=== PATIENT | male | born 1970 | race Two or more races ===

== ENCOUNTER 2020-12-02 09:24 | Outpatient (CLI) | payer BC, SELFPAY ==
--- NOTE | ~2020-12-02 | XR_ITS ---
XR knee LT min 4V DATE: 12/02/2020 09:33 INDICATION: Left knee pain. No injury. TECHNIQUE: Standing AP, Melton and lateral views. Torrey view. COMPARISON: 09/26/2016 left knee FINDINGS: No fracture or dislocation or joint effusion. No periosteal reaction or bone destruction. J oint spaces are well preserved. No radiopaque intra-articular loose body or chondrocalcinosis. IMPRESSION: Negative Reviewed, dictated and finalized at location A. D OPERATIONS SUPERVISOR IMPRESSION: Negative
== END 2020-12-02 09:25 | disposition home or self-care (01) ==
LOC: ANHIMG 09:25
PROVIDERS: PCP Family Medicine; Visit Provider Physician Assistant
DX: M25.562 Pain in left knee (principal)
CPT/HCPCS: 73564

== ENCOUNTER 2021-07-13 15:06 | Outpatient (CLI) | payer BC, SELFPAY ==
--- NOTE | ~2021-07-13 | XR_ITS ---
XR chest 2V DATE: 07/13/2021 15:22 INDICATION: Dyspnea on exertion TECHNIQUE: PA and lateral views COMPARISON: None FINDINGS: There is moderately prominent elevation left hemidiaphragm and left basilar atelectasis and possible infiltrate. The lungs are otherwise clear. No pleural effusion or pulmonary vascular congestion or pneumothorax. Heart size appears borderline. Status post anterior cervical spine surgical fusion. IMPRESSION: Elevated left diaphragm and left basilar atelectasis, possible infiltrate Reviewed, dictated and finalized at location A. IMPRESSION: Elevated left diaphragm and left basilar atelectasis, possible infi ltrate
== END 2021-07-13 15:07 | disposition home or self-care (01) ==
LOC: ANHIMG 15:12
PROVIDERS: PCP Family Medicine; Visit Provider Family Medicine
DX: R06.00 Dyspnea, unspecified (principal); R91.8 Other nonspecific abnormal finding of lung field
CPT/HCPCS: 71046

== ENCOUNTER 2021-09-13 18:03 | Outpatient (CLI) | payer BC, SELFPAY ==
--- NOTE | ~2021-09-13 | CT_ITS ---
EXAMINATION: CT brain wo con DATE: 09/13/2021 18:38 INDICATION: Possible concussion with one and one half weeks of headache TECHNIQUE: Computed tomography (CT) of the head was performed without intravenous contrast. Sagittal and coronal reconstructions were performed. The mA was adjusted according to patient size. Iterative reconstruction technique was employed. The dose-length product was 605.33 mGy-cm. COMPARISON: None FINDINGS: No fracture. No acute intracranial hemorrhage, acute infarction or abnormal extra axial fluid collect ion. There is mild scattered frontal lobe predominant white matter hypoattenuation. Ventricles are n ormal and symmetric. No mass/mass effect. The orbits, paranasal sinuses and mastoid air cells are nor mal. IMPRESSION: 1. No acute/subacute intracranial process. 2. Mild frontal lobe predominant white matter hypoattenuation which is prominent for age. The differe ntial diagnosis includes premature chronic small vessel ischemic disease (especially if the patient h as cardiovascular risk factors), demyelinating disease such as multiple sclerosis or acute disseminat ed encephalomyelitis (ADEM), CADASIL (especially if age 20-40 with prominent anterior temporal lobe o r external capsule involvement), drug abuse (especially with cerebellar involvement), vasculitis, or reactive astrocytosis (gliosis) secondary to nonspecific etiology. Reviewed, dictated and finalized at location A. HEN OPERATOR IMPRESSION: 1. No acute/subacute intracranial process. 2. Mild frontal lobe predominant white matter hypoattenuation which is prominen t for age. The differential diagnosis includes premature chronic small vessel i schemic disease (especially if the patient has cardiovascular risk factors), de myelinating disease such as multiple sclerosis or acute disseminated encephalom yelitis (ADEM), CADASIL (especially if age 20-40 with prominent anterior tempor al lobe or external capsule involvement), drug abuse (especially with cerebella r involvement), vasculitis, or reactive astrocytosis (gliosis) secondary to non specific etiology.
== END 2021-09-13 18:04 | disposition home or self-care (01) ==
PROVIDERS: PCP Family Medicine; Visit Provider Nurse Practitioner Family
DX: S00.93XA Contusion of unspecified part of head, initial encounter (principal); S06.0X9A Concussion with loss of consciousness of unspecified duration, initial encounter; H53.8 Other visual disturbances; R51.9 Headache, unspecified; X58.XXXA Exposure to other specified factors, initial encounter
CPT/HCPCS: 70450

== ENCOUNTER 2022-03-21 13:30 | Outpatient (RCR) | payer BC, SELFPAY ==
--- NOTE | 2022-02-24 11:17 | OTOPEVAL ---
OCCUPATIONAL THERAPY INITIAL EVALUATION REPORT AND PLAN OF CARE 02/24/22 Thank you for referring Sunny Huerta to [facility].? The patient is scheduled to be seen for therapy? 2x/week for 4 weeks. Please review, sign, date and return this plan of care FIDE. I agree with and certify that the following plan of care is medically necessary. Referring Physician Date Referring Provider: Susanne Norwood MD *OT Outpatient Evaluation Start: 02/24/22 10:02 Outpatient Past Medical History Past Medical History Source of Past Medical History Patient Neurological History Hx Neurological Disorders No Significant History Musculoskeletal History Hx Spinal Surgery Yes: cervical fusion, lumbar and sacral fusion Evaluation Information Diagnosis right elbow lateral epicondylitis Onset about a year ago Subjective Information Patient reports pain and Query Text:As Reported By Patient/ difficulties with work tasks - Family typing and using a mouse, lifting or gripping with the right hand, etc. He has been heavily favoring the left and for ADL and household tasks. 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 Right Activity of Daily Living Ability Independent Pain Assessment Timing of Pain Assessment Timing of Pain Assessment Assessment Pain Scale Pain Scale Used Numeric (1 - 10) Self Report Pain Assessment Right Lateral Elbow(s) Reported Pain Level 4 Pain Description Throbbing Lowest Pain Intensity 4 Greatest Pain Intensity 7 Other Pain Aggravating Factors repetitive motion Pain Score Pain Score 4: Self Report Interventions Used Interventions Used By Clinicians Education Upper Extremity Range of Motion General Upper Extremity Range of Motion Reason Not Measured WNL/Right Hand Respiratory Care Specialist/Pinch Strength Assessment Hand Left Respiratory Care Specialist Strength (lbs) 75 Right Respiratory Care Specialist Strength (lbs) 15 Palpation Assessment Palpation Palpation (+) pain and tenderness at the lateral epicondyle, wrist/ finger extensor tendons, and especially at the supracondylar ridge at the ECRL/ECRB origin Special Tests-Upper Extremity Elbow Special Tests Cozen's Positive Right Maudsley's Test Negative Right Elbow Special Test Comments More pain with resisted ECRL/ ECRB vs ED. Upper Extremity Exercise Wrist Exercise Right Other Wrist Exercises Active wrist s
--- NOTE | 2022-03-21 15:17 | PCOTNOTE ---
Patient called & cancelled scheduled appointment this date due.
--- NOTE | 2022-04-04 08:32 | PCOTNOTE ---
OCCUPATIONAL THERAPY DISCHARGE NOTIFICATION 04/04/22 Patient:Sunny Huerta Date of :1970 Patient has not returned for any further treatments since 03/16/2022, therefore he will be discharged at this time. He no showed on his last therapy visit and our clinic has been unable to get in contact with him to reschedule. Patient?s initial visit was on 02/24/2022 10:00 and he had a total of7 visits. The goals have been partially met. He was independent with his home program for lateral epicondylitis and was making progress. Thank you for referring this patient to [facility]. Please review, sign, date and return this discharge summary FIDE. I have been updated about the patient's current status and I agree with discharge from the above service at this time. Referring Physician Date Referring Provider: Susanne Norwood MD
== END 2022-04-04 14:41 | disposition home or self-care (01) ==
LOC: ANHOT 13:30
PROVIDERS: PCP Family Medicine
DX: M79.18 Myalgia, other site (principal)
CPT/HCPCS: 97035; 97110; 97113; 97140; 97165

== ENCOUNTER 2022-06-12 08:05 | Outpatient (CLI) | payer BC, SELFPAY ==
--- NOTE | ~2022-06-12 | XR_ITS ---
XR chest 2V 06/12/2022 08:26 Indication: Cough and shortness of breath Procedure: 2 view chest Comparison: 07/13/2021 Findings: Chronically elevated left diaphragm, suspicious for phrenic nerve paralysis. There is uncha nged left basilar atelectasis. Stable cardiomediastinal silhouette. Right lung clear. No significant effusion or pneumothorax. Impression: 1: Chronic elevation of the left diaphragm, suspicious for phrenic nerve paralysis. Unchanged left ba silar atelectasis. Reviewed, dictated and finalized at location B. Impression: 1: Chronic elevation of the left diaphragm, suspicious for phrenic nerve paraly sis. Unchanged left basilar atelectasis.
== END 2022-06-12 08:06 | disposition home or self-care (01) ==
PROVIDERS: PCP Family Medicine; Visit Provider Nurse Practitioner Family
DX: R05.9 Cough, unspecified (principal); R91.8 Other nonspecific abnormal finding of lung field
CPT/HCPCS: 71046

== ENCOUNTER 2022-09-15 10:46 | Outpatient (CLI) | payer BC, SELFPAY ==
--- NOTE | ~2022-09-15 | XR_ITS ---
XR chest 2V 09/15/2022 11:02 Indication: Diaphragm disorder. Previous lung surgery. Procedure: 2 view chest Comparison: Comparison to multiple prior studies sequentially, with oldest reviewed study dated 07/13. Findings: There is bibasilar atelectasis. Borderline heart size. No focal pneumonia, edema or effusio n. There is elevation of the left diaphragm. No pneumothorax. Impression: 1: Bibasilar atelectasis with elevated left diaphragm. Reviewed, dictated and finalized at location A. HEAD BUILDER Impression: 1: Bibasilar atelectasis with elevated left diaphragm.
== END 2022-09-15 10:47 | disposition home or self-care (01) ==
PROVIDERS: PCP Family Medicine; Visit Provider Family Medicine
DX: J98.6 Disorders of diaphragm (principal)
CPT/HCPCS: 71046

== ENCOUNTER 2022-11-23 10:04 | Outpatient (CLI) | payer OTHER, SELFPAY ==
--- NOTE | ~2022-11-23 | XR_ITS ---
EXAMINATION: XR chest 2V DATE: 11/23/2022 10:27 INDICATION: Right chest pain. TECHNIQUE: Frontal and lateral views of the chest were obtained. COMPARISON: Chest 2 views 09/15/2022, CT abdomen and pelvis 09/25/17 FINDINGS: There is mild atelectasis in left lower lung zone. No pleural effusion or pneumothorax. The heart size is normal. There are prominent paracardial fat pads. There are changes of anterior fusion procedure in cervical spine. IMPRESSION: 1. Mild atelectasis in left lower lung zone. Reviewed, dictated and finalized at location A. O ANNOUNCER
== END 2022-11-23 10:05 | disposition home or self-care (01) ==
PROVIDERS: PCP Family Medicine; Visit Provider Physician Assistant
DX: J98.11 Atelectasis (principal); R06.02 Shortness of breath; R07.89 Other chest pain
CPT/HCPCS: 71046

== ENCOUNTER 2022-12-14 14:07 | Outpatient (CLI) | payer OTHER, SELFPAY ==
--- NOTE | ~2022-12-14 | XR_ITS ---
XR hip RT 2V w AP pelvis 12/14/2022 14:42 Indication: Right hip pain for 2 months Procedure: AP pelvis and 2 views right hip Comparison: 12/03/2018 Findings: There is mild osteoarthritis of the right hip. There are postsurgical fusion changes at L5- S1. Pelvic rings are intact. No fracture or traumatic malalignment. Impression: 1: Mild osteoarthritis of the right hip. Reviewed, dictated and finalized at location A. T REGISTRY OFFICER Impression: 1: Mild osteoarthritis of the right hip.
== END 2022-12-14 14:08 | disposition home or self-care (01) ==
PROVIDERS: PCP Family Medicine; Visit Provider Family Medicine
DX: M16.11 Unilateral primary osteoarthritis, right hip (principal)
CPT/HCPCS: 73502

== ENCOUNTER 2022-12-26 16:06 | Emergency (ER) | payer OTHER, SELFPAY ==
[2022-12-26 16:16] VITALS: BP 136/97; PULSE 84; RESP 20; TEMP 36.4; O2SAT 100
--- NOTE | 2022-12-26 16:33 | ED.URI ---
HPI - URI/Sore Throat General Chief Complaint: Upper Respiratory Infection Stated Complaint: sorethroat Time Seen by Provider: 12/26/22 16:34 Source: patient, RN notes reviewed and old records reviewed Mode of arrival: ambulatory Limitations: no limitations History of Present Illness HPI Narrative: 52 year old male presents to [facility] care with complaints of 3 day history of scratchy painful throat. Patient states he has also some nasal congestion, some body aches, and occasional cough. Patient reports that he takes daily Xyzal and has been taking Ibuprofen, NyQuil and also using Chloraseptic spray for his symptoms. Patient reports that he has been around brother's family who have had strep. MD elicited complaint: cough, sore throat, rhinorrhea and nasal congestion Onset (ago): day(s) (3) Consistency: constant Pain scale (0-10): 6 Able to tolerate fluids by mouth: Yes Context: sick contacts Treatments prior to arrival: ibuprofen and other (Chloraseptic spray, NyQuil, Xyzal) Related Data Home Medications Medication Instructions Recorded Confirmed clonazepam 0.5 mg tablet 0.5 mg PO BID 11/17/19 12/26/22 paroxetine HCl 40 mg tablet 40 mg PO DAILY 11/17/19 12/26/22 mecobalamin (vitamin B12) 1,000 1,000 mcg PO DAILY 02/23/21 12/26/22 mcg chewable tablet Allergies Allergy/AdvReac Type Severity Reaction Status Date / Time methocarbamol Allergy Mild unknown Verified 12/26/22 16:13 atorvastatin Allergy Unknown Unknown Verified 12/26/22 16:13 buspirone Allergy Unknown Unknown Verified 12/26/22 16:13 cholecalciferol (vitamin D3) Allergy Unknown Unknown Verified 12/26/22 16:13 ferumoxytol Allergy Unknown Anaphylactic Verified 12/26/22 16:13 Shock Czgctpf-BXU-BdL Reductase Allergy Unknown Unknown Verified 12/26/22 16:13 Inhibitor [Axailka-Din-Kdf Reductase Inhibitor] sulfamethizole Allergy Unknown Unknown Verified 12/26/22 16:13 sulfamethoxazole Allergy Unknown Swelling Verified 12/26/22 16:13 tramadol Allergy Unknown Dyspnea / Verified 12/26/22 16:13 SOB trimethoprim Allergy Unknown Unknown Verified 12/26/22 16:13 Review of Systems Review of Systems: CONSTITUTIONAL: Denies malaise, chills, sweats, or fever. EYES: Denies visual changes, redness, or discharge. ENT: Reports rhinorrhea, congestion, sinus pain, no otalgia positive sore throat. CARDIOVASCULAR: Denies chest pain, palpitations, or edema. RESPIRATORY: Reports occasional cough.? Denies dyspnea. GASTROINTESTINAL: Denies abdominal pain, nausea, vomiting, diarrhea SKIN: Denies rash or itching. MUSCULOSKELETAL:reports myalgia. NEUROLOGIC: Denies headache. All systems reviewed & are unremarkable except as noted in HPI and below PMFSH Past Medical History Medical History Acquired elevated hemidiaphragm Arthritis Claustrophobia Degenerative tear of glenoid labrum of right shoulder Internal impingement of right shoulder Obesity Tendinitis of right rotator cuff Surgical History Surgical History History of cervical discectomy C5-6,C6-7,C7-T1 Fusion approximately 07/2020. History of lumbar spinal fusion S/P arthroscopy of right shoulder Family History Family History Father Hypertension Mother Hypertension Sibling Hypertension Other Arthritis Diabetes mellitus High cholesterol Neuropathy Social History Social History Smoking status: Never smoker Second hand tobacco smoke exposure: No Alcohol intake: current Alcohol use details: occasionally Substance use: never Substance use type: does not use Living arrangements: with family Occupation/Education: occupation Gender identity (if verbalized by the patient): Male Sexual Orientation (if Verbalized by the Patient): Lesbian, Garcia, or
== END 2022-12-26 16:48 | disposition home or self-care (01) ==
PROVIDERS: Emergency Provider Registered Nurse; PCP Family Medicine
DX: J03.90 Acute tonsillitis, unspecified (principal)
CPT/HCPCS: 87081; 87880; 99213; G0463

== ENCOUNTER 2023-01-03 16:37 | Outpatient (CLI) | payer OTHER, SELFPAY ==
--- NOTE | ~2023-01-03 | XR_ITS ---
EXAMINATION: XR chest 2V DATE: 01/03/2023 16:55 INDICATION: Cough and shortness of breath. TECHNIQUE: Frontal and lateral views of the chest were obtained. COMPARISON: Chest 2 views 11/23/2022, 06/12/2022 FINDINGS: There is mild atelectasis at left lung base. There is elevation of left hemidiaphragm. No p leural effusion or pneumothorax. The heart size is normal. There are prominent paracardial fat pads. There are changes of anterior fusion procedure in cervical spine. IMPRESSION: 1. Mild atelectasis at left lung base. 2. Chronic elevation of left hemidiaphragm. Reviewed, dictated and finalized at location A. NDED INSURANCE CLERK
== END 2023-01-03 16:38 | disposition home or self-care (01) ==
LOC: ANHIMG 16:38
PROVIDERS: PCP Family Medicine; Visit Provider Family Medicine
DX: R05.9 Cough, unspecified (principal); J98.11 Atelectasis
CPT/HCPCS: 71046

== ENCOUNTER 2023-04-19 08:53 | Outpatient (CLI) | payer OTHER, SELFPAY ==
--- NOTE | ~2023-04-19 | XR_ITS ---
Clinical Indication: Cough PA and lateral views of the chest: Comparison: 01/03/2023 Findings: There is retrocardiac airspace disease. Right lung is clear. Cardiomediastinal silhouette is within normal limits. Bones and soft tissues are unremarkable. Impression: Left lower lobe atelectasis versus pneumonia, similar to prior exam. Reviewed, dictated and finalized at location . Impression: Left lower lobe atelectasis versus pneumonia, similar to prior exam.
== END 2023-04-19 08:54 | disposition home or self-care (01) ==
PROVIDERS: PCP Family Medicine; Visit Provider Family Medicine
DX: R05.9 Cough, unspecified (principal); R06.02 Shortness of breath; R06.2 Wheezing; R91.8 Other nonspecific abnormal finding of lung field
CPT/HCPCS: 71046

== ENCOUNTER 2023-07-13 14:36 | Outpatient (CLI) | payer OTHER, SELFPAY ==
--- NOTE | ~2023-07-13 | XR_ITS ---
EXAMINATION: XR ribs RT 2V w CXR 2V INDICATION: Chest pain TECHNIQUE: PA and lateral views of the chest and 3 views of the right ribs were obtained. COMPARISON: 04/19/2023 FINDINGS: There is chronic atelectasis or scarring of the left lower lobe. No pleural effusion or pne umothorax. The lungs are free of acute opacities. The heart size is normal. There is mild thoracic sp ondylosis. Surgical changes are noted in the lower cervical spine. IMPRESSION: 1. No acute cardiopulmonary abnormality or evidence of displaced rib fracture. Reviewed, dictated and finalized at location F.
== END 2023-07-13 14:37 | disposition home or self-care (01) ==
PROVIDERS: PCP Family Medicine; Visit Provider Physician Assistant
DX: R06.02 Shortness of breath (principal); R07.9 Chest pain, unspecified
CPT/HCPCS: 71046; 71100

== ENCOUNTER 2023-08-21 11:13 | Emergency (ER) | payer OTHER, SELFPAY ==
--- NOTE | ~2023-08-21 | XR_ITS ---
XR abdomen/kub 1V 08/21/2023 11:43 INDICATION: Lower abdominal pain TECHNIQUE: KUB COMPARISON: 06/20/2018 FINDINGS: Bowel gas pattern is normal. There is no evidence of free air, mass, organomegaly, ascites or obstruction. No abnormal calculi are seen. The bones appear intact. There are fusion changes at L5-S1. IMPRESSION: 1: No acute abdominal abnormality identified. Reviewed, dictated and finalized at location L.
--- NOTE | 2023-08-21 11:16 | ED.ABDPAIN ---
HPI - Abdominal Pain General Chief Complaint: Abdominal Pain Stated Complaint: lower abdominal pain Time Seen by Provider: 08/21/23 11:16 Source: patient Mode of arrival: ambulatory Limitations: no limitations History of Present Illness HPI narrative: Sunny is a 53-year-old male patient presenting to the clinic today with complaints of left lower abdominal pain. Reports his pain is been going on for last 3 days. Currently rates his pain a 5/10 and states it is a sharp pain in the left lower abdomen. Pain initially started under the umbilicus and went to the right side but now is to the left side only. No known fever. Did get a COVID vaccine yesterday so he is having some body aches and chills today. Reports history of chronic constipation. Had taken stool softener, MiraLax and milk of Mag this morning and had a very hard bowel movement. Does notice some bright red blood when wiping on the tissue paper however, this is not uncommon for the patient. He is passing gas but feels slightly distended. No nausea or vomiting. Reports urinary frequency and pain with urination. He denies any penile discharge. He has no concern for any sexually transmitted infections. Related Data Home Medications Medication Instructions Recorded Confirmed clonazepam 0.5 mg tablet 0.5 mg PO BID 11/17/19 08/21/23 paroxetine HCl 40 mg tablet 40 mg PO DAILY 11/17/19 08/21/23 mecobalamin (vitamin B12) 1,000 1,000 mcg PO DAILY 02/23/21 08/21/23 mcg chewable tablet hydroxyzine HCl 50 mg tablet 50 mg PO DAILY 08/21/23 08/21/23 Allergies Allergy/AdvReac Type Severity Reaction Status Date / Time atorvastatin Allergy Severe Anaphylaxis Verified 08/21/23 11:38 buspirone Allergy Severe Anaphylaxis Verified 08/21/23 11:38 cholecalciferol (vitamin D3) Allergy Severe Anaphylaxis Verified 08/21/23 11:38 ferumoxytol Allergy Severe Anaphylaxis Verified 08/21/23 11:38 methocarbamol Allergy Severe Anaphylaxis Verified 08/21/23 11:38 Btvmpaf-JRJ-HcO Reductase Allergy Severe Anaphylaxis Verified 08/21/23 11:38 Inhibitor [Inbzlju-Lvt-Eyb Reductase Inhibitor] sulfamethizole Allergy Severe Anaphylaxis Verified 08/21/23 11:38 sulfamethoxazole Allergy Severe Anaphylaxis Verified 10/24/23 11:38 tramadol Allergy Severe Anaphylaxis Verified 08/21/23 11:38 trimethoprim Allergy Severe Anaphylaxis Verified 08/21/23 11:38 Review of Systems Review of Systems: Pertinent positives per HPI. Patient denies any fever, chills, rash, headache, visual changes, dizziness, cough, shortness of breath, chest pain, palpitations, nausea, vomiting, diarrhea. PMFSH Past Medical History Medical History Acquired elevated hemidiaphragm Arthritis Chronic cough Claustrophobia Degenerative tear of glenoid labrum of right shoulder Internal impingement of right shoulder Obesity Tendinitis of right rotator cuff Surgical History Surgical History History of cervical discectomy C5-6,C6-7,C7-T1 Fusion approximately 07/2020. History of lumbar spinal fusion S/P arthroscopy of right shoulder Family History Family History Father Hypertension Mother Hypertension Sibling Hypertension Other Arthritis Diabetes mellitus High cholesterol Neuropathy Social History Social History Smoking status: Never smoker Second hand tobacco smoke exposure: No Alcohol intake: current Alcohol use details: occasionally Substance use: never Substance use type: does not use Living arrangements: with family Occupation/Education: occupation Gender identity (if verbalized by the patient): Male Sexual Orientation (if Verbalized by the Patient): Lesbian, Garcia, or Homosexual Comments At the time of my signature, I reviewed and agree with the
[2023-08-21 11:24] VITALS: BP 134/91; PULSE 101; RESP 16; TEMP 36.3; O2SAT 99
== END 2023-08-21 12:05 | disposition short-term general hospital (02) ==
PROVIDERS: Emergency Provider Nurse Practitioner Family; PCP Family Medicine
DX: R10.32 Left lower quadrant pain (principal); M19.90 Unspecified osteoarthritis, unspecified site; E66.9 Obesity, unspecified; Z68.33 Body mass index [BMI] 33.0-33.9, adult
CPT/HCPCS: 74018; 81003; 99213; G0463

== ENCOUNTER 2023-09-03 12:08 | Emergency (ER) | payer OTHER, SELFPAY ==
[2023-09-03 12:19] VITALS: BP 131/101; PULSE 75; RESP 18; TEMP 36.3; O2SAT 99
--- NOTE | 2023-09-03 12:37 | ED.EXTPRO ---
HPI - Extremity Problem General Chief complaint: Extremity Problem,Nontraumatic Stated complaint: rt ankle pain Time Seen by Provider: 09/03/23 12:25 Source: patient and RN notes reviewed Mode of arrival: ambulatory Limitations: no limitations History of Present Illness HPI Narrative: Patient presents today complaining of right medial ankle pain x1 week. He describes the pain as sharp at times. Denies any injury or trauma, but states pain increased when he started to increases recreational walking up to 2 miles. Denies numbness or tingling. Currently rates his pain 4/10 and has been using ice and ibuprofen with mild short-term relief. Related Data Home Medications Medication Instructions Recorded Confirmed clonazepam 0.5 mg tablet 0.5 mg PO BID 11/17/19 09/03/23 paroxetine HCl 40 mg tablet 40 mg PO DAILY 11/17/19 09/03/23 mecobalamin (vitamin B12) 1,000 1,000 mcg PO DAILY 02/23/21 09/03/23 mcg chewable tablet hydroxyzine HCl 50 mg tablet 50 mg PO DAILY 08/21/23 09/03/23 Allergies Allergy/AdvReac Type Severity Reaction Status Date / Time atorvastatin Allergy Severe Anaphylaxis Verified 09/03/23 12:22 buspirone Allergy Severe Anaphylaxis Verified 09/03/23 12:22 cholecalciferol (vitamin D3) Allergy Severe Anaphylaxis Verified 09/03/23 12:22 ferumoxytol Allergy Severe Anaphylaxis Verified 09/03/23 12:22 methocarbamol Allergy Severe Anaphylaxis Verified 09/03/23 12:22 Ntnguwu-ZFZ-HzQ Reductase Allergy Severe Anaphylaxis Verified 09/03/23 12:22 Inhibitor [Vgojifi-Puj-Mlr Reductase Inhibitor] sulfamethizole Allergy Severe Anaphylaxis Verified 09/03/23 12:22 sulfamethoxazole Allergy Severe Anaphylaxis Verified 09/03/23 12:22 tramadol Allergy Severe Anaphylaxis Verified 09/03/23 12:22 trimethoprim Allergy Severe Anaphylaxis Verified 09/03/23 12:22 Review of Systems Review of Systems: CONSTITUTIONAL: Denies body aches, fever, chills, or sweats. EYES: Denies visual changes, redness, or discharge. ENT: Denies rhinorrhea, congestion, sore throat, or otalgia. CARDIOVASCULAR: Denies chest pain, palpitations, or edema. RESPIRATORY: Denies cough or dyspnea. GASTROINTESTINAL: Denies abdominal pain, nausea, vomiting, or diarrhea. GENITOURINARY: Denies dysuria or hematuria. SKIN: Denies rash, itching, or wounds. MUSCULOSKELETAL: + right ankle pain NEUROLOGIC: Denies headache, numbness, tingling, or weakness. PSYCH: Denies depression or anxiety. [facility] Past Medical History Medical History Acquired elevated hemidiaphragm Arthritis Chronic cough Claustrophobia Degenerative tear of glenoid labrum of right shoulder Internal impingement of right shoulder Obesity Tendinitis of right rotator cuff Surgical History Surgical History History of cervical discectomy C5-6,C6-7,C7-T1 Fusion approximately 07/2020. History of lumbar spinal fusion S/P arthroscopy of right shoulder Family History Family History Father Hypertension Mother Hypertension Sibling Hypertension Other Arthritis Diabetes mellitus High cholesterol Neuropathy Social History Social History Smoking status: Never smoker Second hand tobacco smoke exposure: No Alcohol intake: current Alcohol use details: occasionally Substance use: never Substance use type: does not use Living arrangements: with family Occupation/Education: occupation Gender identity (if verbalized by the patient): Male Sexual Orientation (if Verbalized by the Patient): Lesbian, Garcia, or Homosexual Comments At time of signature, I have reviewed and agree with nursing past medical, surgical, social and family history unless otherwise noted. Please see nursing chart for further information. There is no relevant
== END 2023-09-03 12:41 | disposition home or self-care (01) ==
PROVIDERS: Emergency Provider Nurse Practitioner; PCP Family Medicine
DX: S86.811A Strain of other muscle(s) and tendon(s) at lower leg level, right leg, initial encounter (principal); X58.XXXA Exposure to other specified factors, initial encounter; M19.90 Unspecified osteoarthritis, unspecified site; E66.9 Obesity, unspecified; Z68.35 Body mass index [BMI] 35.0-35.9, adult
CPT/HCPCS: 99213; G0463

== ENCOUNTER 2024-01-22 15:45 | Emergency (ER) | payer OTHER, SELFPAY ==
--- NOTE | ~2024-01-22 | XR_ITS ---
EXAMINATION: XR ankle RT min 3V INDICATION: Right ankle pain TECHNIQUE: Four views of the right ankle are obtained. COMPARISON: None available FINDINGS: No fracture, dislocation, or subluxation. The bones and joint spaces are normal. There is m edial soft tissue swelling of ankle. IMPRESSION: 1. No acute osseous abnormality. Reviewed, dictated and finalized at location F.
[2024-01-22 15:55] VITALS: BP 146/108; PULSE 87; RESP 16; TEMP 35.9; O2SAT 100
--- NOTE | 2024-01-22 16:04 | ED.LOWEXIN ---
HPI - Extremity Injury (Lower) General Chief Complaint: Extremity Injury, Lower Stated Complaint: rt ankle injury Time Seen by Provider: 01/22/24 16:24 Source: patient and RN notes reviewed Mode of arrival: ambulatory Limitations: no limitations History of Present Illness HPI Narrative: 54-year-old male presents with concern for right ankle injury. He reports 5 days ago he stepped off a bus and rolled the ankle. He reports he has been using ice, elevation and ibuprofen without much improvement. He denies open skin, bruising, redness. MD complaint: ankle injury Related Data Home Medications Medication Instructions Recorded Confirmed clonazepam 0.5 mg tablet 0.5 mg PO BID 11/17/19 01/22/24 paroxetine HCl 40 mg tablet 40 mg PO DAILY 11/17/19 01/22/24 mecobalamin (vitamin B12) 1,000 1,000 mcg PO DAILY 02/23/21 01/22/24 mcg chewable tablet hydroxyzine HCl 50 mg tablet 50 mg PO DAILY 08/21/23 01/22/24 loratadine 10 mg tablet 10 mg PO DAILY 01/22/24 01/22/24 Allergies Allergy/AdvReac Type Severity Reaction Status Date / Time atorvastatin Allergy Severe Anaphylaxis Verified 01/22/24 15:50 buspirone Allergy Severe Anaphylaxis Verified 01/22/24 15:50 cholecalciferol (vitamin D3) Allergy Severe Anaphylaxis Verified 01/22/24 15:50 ferumoxytol Allergy Severe Anaphylaxis Verified 01/22/24 15:50 methocarbamol Allergy Severe Anaphylaxis Verified 01/22/24 15:50 Runyboe-SUN-YjK Reductase Allergy Severe Anaphylaxis Verified 01/22/24 15:50 Inhibitor [Obdueoc-Ahx-Ftv Reductase Inhibitor] sulfamethizole Allergy Severe Anaphylaxis Verified 01/22/24 15:50 sulfamethoxazole Allergy Severe Anaphylaxis Verified 01/22/24 15:50 tramadol Allergy Severe Anaphylaxis Verified 01/22/24 15:50 trimethoprim Allergy Severe Anaphylaxis Verified 01/22/24 15:50 Review of Systems Review of Systems: CONSTITUTIONAL: Denies malaise, chills, sweats, or fever. SKIN: Denies rash or itching, open skin, laceration, abrasion, redness, warmth MUSCULOSKELETAL: Reports right ankle pain and swelling NEUROLOGIC: Denies numbness, weakness All systems reviewed & are unremarkable except as noted in HPI and below PMFSH Past Medical History Medical History (Updated 01/22/24 @ 16:30 by Iris Hill NP) Acquired elevated hemidiaphragm Arthritis Chronic cough CKD (chronic kidney disease), stage III Claustrophobia Degenerative tear of glenoid labrum of right shoulder Internal impingement of right shoulder Obesity Statin intolerance Tendinitis of right rotator cuff Surgical History Surgical History History of cervical discectomy C5-6,C6-7,C7-T1 Fusion approximately 07/2020. History of lumbar spinal fusion S/P arthroscopy of right shoulder Family History Family History Father Hypertension Mother Hypertension Sibling Hypertension Other Arthritis Diabetes mellitus High cholesterol Neuropathy Social History Social History Smoking status: Never smoker Second hand tobacco smoke exposure: No Alcohol intake: current Alcohol use details: occasionally Substance use: never Substance use type: does not use Living arrangements: with family Occupation/Education: occupation Gender identity (if verbalized by the patient): Male Sexual Orientation (if Verbalized by the Patient): Lesbian, Garcia, or Homosexual Comments At time of signature, agree with nursing past medical, surgical, social and family history. There is no relevant family history pertinent to the presenting complaint Exam Narrative: GENERAL: Well-appearing, well-nourished, and in no acute distress. HEAD: Normocephalic, atraumatic. EYES: PERRLA, conjunctivae clear NECK: Supple. CHEST: Speaks in full sentences. No respiratory distress. HEART: Regular rate and rhythm. Normal and equal p
== END 2024-01-22 16:31 | disposition home or self-care (01) ==
PROVIDERS: Emergency Provider Nurse Practitioner; PCP Family Medicine
DX: S93.401A Sprain of unspecified ligament of right ankle, initial encounter (principal); X50.9XXA Other and unspecified overexertion or strenuous movements or postures, initial encounter; M19.90 Unspecified osteoarthritis, unspecified site; E66.9 Obesity, unspecified; Z68.34 Body mass index [BMI] 34.0-34.9, adult; I12.9 Hypertensive chronic kidney disease with stage 1 through stage 4 chronic kidney disease, or unspecified chronic kidney disease; N18.2 Chronic kidney disease, stage 2 (mild); G62.9 Polyneuropathy, unspecified; E78.00 Pure hypercholesterolemia, unspecified; G47.30 Sleep apnea, unspecified; K21.9 Gastro-esophageal reflux disease without esophagitis; N40.0 Benign prostatic hyperplasia without lower urinary tract symptoms; F41.9 Anxiety disorder, unspecified; F32.A Depression, unspecified
CPT/HCPCS: 73610; 99213; G0463

== ENCOUNTER 2024-03-31 17:19 | Outpatient (CLI) | payer OTHER, SELFPAY ==
--- NOTE | ~2024-03-31 | XR_ITS ---
EXAMINATION: XR chest 2V Exam Date/Time: 03/31/2024 17:20 CDT HISTORY: R05.9 - Cough, unspecified Comparison: 07/13/2023. RESULT: Lines, tubes, and devices: Cervical fusion hardware. Surgical clips over the lower neck. Lungs and pleura: Chronic stable streaky left basilar opacities and left hemidiaphragm elevation, li teresa representing chronic scarring. Lungs otherwise clear. Cardiomediastinal silhouette: Stable. Other: No acute osseous or upper abdominal finding. IMPRESSION: No acute cardiopulmonary process. Reviewed, dictated and finalized at location K.
== END 2024-03-31 17:20 | disposition home or self-care (01) ==
LOC: ANHIMG 17:20
PROVIDERS: PCP Family Medicine; Visit Provider Physician Assistant
DX: R05.9 Cough, unspecified (principal)
CPT/HCPCS: 71046

== ENCOUNTER 2024-04-04 14:27 | Outpatient (CLI) | payer OTHER, SELFPAY ==
--- NOTE | ~2024-04-04 | CT_ITS ---
EXAMINATION: CT abdomen pelvis w con DATE: 04/04/2024 15:25 INDICATION: Left lower quadrant abdominal pain. TECHNIQUE: Computed tomography (CT) of the abdomen and pelvis was performed with 100 mL Omnipaque 350 intravenous contrast. Automated exposure control and iterative reconstruction technique were employe d. The dose-length product was 876.20 mGy-cm. COMPARISON: CT abdomen and pelvis 09/25/17 FINDINGS: The visualized portions of the lung bases demonstrate mild atelectasis. No pleural effusion . The heart size is normal. No pericardial effusion. There is mild elevation of left hemidiaphragm. T he liver, gallbladder, spleen, pancreas, adrenal glands, and right kidney are normal. There is a 6 mm cyst in left kidney. There are 3 mm and 1 mm stones in left kidney. The prostate is mildly enlarged. There are no dilated loops of bowel. The appendix is normal. There are no pathologically enlarged ly mph nodes. There is no free intraperitoneal fluid. There are changes of anterior and posterior fusion procedures at L5-S1. There is mild lumbar spondylosis. IMPRESSION: 1. No etiology for the patient's symptoms. Reviewed, dictated and finalized at location A.
[2024-04-04 15:15] LABS: Estimated Glomerular Filt Rate > 60
== END 2024-04-04 14:28 | disposition home or self-care (01) ==
LOC: ANHIMG 14:31
PROVIDERS: PCP Family Medicine; Visit Provider Physician Assistant Medical
DX: K52.89 Other specified noninfective gastroenteritis and colitis (principal)
CPT/HCPCS: 74177; Q9967

== ENCOUNTER 2024-04-15 12:48 | Outpatient (CLI) | payer OTHER, SELFPAY ==
--- NOTE | ~2024-04-15 | US_ITS ---
EXAMINATION: US soft tissue abdomen DATE: 04/15/2024 13:07 INDICATION: Left flank lipoma. TECHNIQUE: Multiple grayscale and Doppler ultrasound images of the abdomen were obtained. COMPARISON: CT abdomen and pelvis 04/04/24 FINDINGS: In the left flank, there is a 1.2 x 1.4 x 0.6 cm subcutaneous hyperechoic mass. IMPRESSION: 1. 1.4 cm subcutaneous mass in left flank, likely a lipoma or inflammation/scarring. Reviewed, dictated and finalized at location A. IMPRESSION: 1. 1.4 cm subcutaneous mass in left flank, likely a lipoma or inflammation/scar ring.
== END 2024-04-15 12:49 ==
PROVIDERS: PCP Family Medicine; Visit Provider Physician Assistant Medical
DX: R19.04 Left lower quadrant abdominal swelling, mass and lump (principal)
CPT/HCPCS: 76705

== ENCOUNTER 2024-06-25 14:14 | Outpatient (CLI) | payer OTHER, SELFPAY ==
--- NOTE | ~2024-06-25 | XR_ITS ---
EXAMINATION: XR chest 2V DATE: 06/25/2024 14:35 INDICATION: Chest pain, unspecified. TECHNIQUE: Frontal and lateral views of the chest were obtained. COMPARISON: Chest 2 views 03/31/2024 FINDINGS: There is mild atelectasis at left lung base. No pleural effusion or pneumothorax. The heart is normal. There are changes of anterior fusion procedure in cervical spine. IMPRESSION: 1. Mild atelectasis at left lung base. Reviewed, dictated and finalized at location A.
== END 2024-06-25 14:15 | disposition home or self-care (01) ==
PROVIDERS: PCP Family Medicine; Visit Provider Family Medicine
DX: J98.11 Atelectasis (principal); R07.9 Chest pain, unspecified
CPT/HCPCS: 71046

== ENCOUNTER 2024-08-04 12:45 | Emergency (ER) | payer OTHER, SELFPAY ==
[2024-08-04 12:55] VITALS: BP 138/96; PULSE 82; RESP 18; TEMP 36.4; O2SAT 100
--- NOTE | 2024-08-04 12:55 | ED.URI ---
HPI - URI/Sore Throat General Chief Complaint: Upper Respiratory Infection Stated Complaint: sore throat Time Seen by Provider: 08/04/24 12:55 Source: patient, RN notes reviewed and old records reviewed Mode of arrival: ambulatory Limitations: no limitations History of Present Illness HPI Narrative: 54-year-old male to [facility] with complaint of a irritation in his throat that he describes as a typical which started on July 29 while traveling home from [place]. Patient states that July 31 he developed a cough and sore throat. Patient has attempted to treat at home with qbwh-rud-xujlpse cough syrup and cough drops. Patient reports extensive anaphylactic allergies as well as a pulmonary history. Patient denies shortness of breath, difficulty swallowing , chest pain. Patient able to tolerate fluids by mouth. Patient resting in exam room in no acute distress. Respirations even and nonlabored. Patient able to speak in complete sentences without difficulty. Related Data Home Medications Medication Instructions Recorded Confirmed clonazepam 0.5 mg tablet 0.5 mg PO BID 11/17/19 08/04/24 paroxetine HCl 40 mg tablet 40 mg PO DAILY 11/17/19 08/04/24 loratadine 10 mg tablet 10 mg PO DAILY 01/22/24 08/04/24 Allergies Allergy/AdvReac Type Severity Reaction Status Date / Time atorvastatin Allergy Severe Anaphylaxis Verified 08/04/24 12:57 buspirone Allergy Severe Anaphylaxis Verified 08/04/24 12:57 cholecalciferol (vitamin D3) Allergy Severe Anaphylaxis Verified 08/04/24 12:57 ferumoxytol Allergy Severe Anaphylaxis Verified 08/04/24 12:57 methocarbamol Allergy Severe Anaphylaxis Verified 08/04/24 12:57 Lwdlhor-NUE-XiS Reductase Allergy Severe Anaphylaxis Verified 08/04/24 12:57 Inhibitor [Ucdzffq-Mzd-Zpe Reductase Inhibitor] sulfamethizole Allergy Severe Anaphylaxis Verified 08/04/24 12:57 sulfamethoxazole Allergy Severe Anaphylaxis Verified 08/04/24 12:57 tramadol Allergy Severe Anaphylaxis Verified 08/04/24 12:57 trimethoprim Allergy Severe Anaphylaxis Verified 08/04/24 12:57 Review of Systems Review of Systems: All systems reviewed & are unremarkable except as noted in HPI and below Constitutional: Constitutional: Reports no additional constitutional complaints Eyes: Eyes: Reports no additional eye complaints ENT: Reports as per HPI and Reports sore throat Cardiovascular: Cardiovascular: Reports no additional cardiovascular complaints, Denies chest pain and Denies dyspnea Respiratory: Respiratory: Reports as per HPI, Reports cough and Denies dyspnea Musculoskeletal: Musculoskeletal: Reports no additional musculoskeletal complaints Neurologic: Reports system reviewed and no additional complaints, except as documented Psychiatric: Psychiatric: Reports no additional psychiatric complaints [facility] Past Medical History Medical History Acquired elevated hemidiaphragm Arthritis Chronic cough CKD (chronic kidney disease), stage III Claustrophobia Degenerative tear of glenoid labrum of right shoulder Internal impingement of right shoulder Obesity Statin intolerance Tendinitis of right rotator cuff Surgical History Surgical History History of cervical discectomy C5-6,C6-7,C7-T1 Fusion approximately 07/2020. History of lumbar spinal fusion History of thoracic surgery diaphragm plication 07/2022 S/P arthroscopy of right shoulder Family History Family History Father Hypertension Mother Hypertension Sibling Hypertension Other Arthritis Diabetes mellitus High cholesterol Neuropathy Social History Social History Smoking status: Never smoker Second hand tobacco smoke exposure: No Alcohol intake: current Alcohol use details: occasionally
[2024-08-04 12:58] VITALS: BP 138/96; PULSE 82; RESP 18; TEMP 36.4; O2SAT 100
== END 2024-08-04 13:12 | disposition home or self-care (01) ==
PROVIDERS: Emergency Provider Nurse Practitioner Family; PCP Family Medicine
DX: H66.91 Otitis media, unspecified, right ear (principal); N18.30 Chronic kidney disease, stage 3 unspecified; M19.90 Unspecified osteoarthritis, unspecified site; E66.9 Obesity, unspecified; Z68.34 Body mass index [BMI] 34.0-34.9, adult
CPT/HCPCS: 99213; G0463

== ENCOUNTER 2024-08-11 13:55 | Outpatient (CLI) | payer OTHER, SELFPAY ==
--- NOTE | ~2024-08-11 | XR_ITS ---
XR chest 2V Ordering provider: Joy Samuel PA-C History: 54 years Male with . R05.9 - Cough, unspecified . Comparison: June 25, 2024 FINDINGS: MEDIASTINUM: The cardiac silhouette is not enlarged. LUNGS: No infiltrates, effusions or pneumothorax. Opacity seen in the right perihilar area which may be atelectasis versus pneumonia. Atelectatic y[place] es in the left lung base. OTHER: No free air under the diaphragm. IMPRESSION: Possible pneumonia in the right perihilar area. Clinical correlation advised. Reviewed, dictated and finalized at location A.
== END 2024-08-11 13:56 | disposition home or self-care (01) ==
LOC: ANHIMG 13:57
PROVIDERS: PCP Family Medicine; Visit Provider Physician Assistant
DX: R05.9 Cough, unspecified (principal); Z87.01 Personal history of pneumonia (recurrent)
CPT/HCPCS: 71046

== ENCOUNTER 2024-08-13 16:50 | Emergency (ER) | payer OTHER, SELFPAY ==
[2024-08-13] VITALS (8 sets, daily range): BP systolic 125–149; BP diastolic 91–110; PULSE 81–97; RESP 18–19; TEMP 36.5–36.9; O2SAT 97–100
--- NOTE | ~2024-08-13 | XR_ITS ---
XR chest 2V Ordering provider: Selwyn Kessler APRN History: 54 years Male with . cough . Comparison: August 11, 2024 FINDINGS: MEDIASTINUM: The cardiac silhouette is slightly enlarged. LUNGS: No infiltrates, effusions or pneumothorax. Minimal atelectatic changes in the supradiaphragmat ic area on the left side. Nodule seen in the right midzone which measures [address] evaluation advised. OTHER: No free air under the diaphragm. Postoperative changes in the cervical area. IMPRESSION: Nodule in the right midzone. CT evaluation advised. Left basilar atelectatic changes. Reviewed, dictated and finalized at location A.
--- NOTE | ~2024-08-13 | CT_ITS ---
CT diagnostic chest wo con Ordering provider: eSlwyn Kessler APRN History: 54 years Male with . per cxr results . Comparison: None. Technique: CT chest without IV contrast. Radiation reduction technique utilized.The dose-length product was 399.20 mGy-cm. FINDINGS: VISUALIZED THORACIC INLET: Normal. MEDIASTINUM: Aorta/coronary arteries: Mild atheromatous disease. Heart/other: The heart is not enlarged. Lymph nodes: No mediastinal or hilar adenopathy. Paratracheal lymph node seen measuring 8.5 mm. LUNGS: Subsegmental atelectatic changes seen in the right upper lobe adjacent to the transverse fissu re. Atelectatic changes in the left lung base with bronchiectasis is seen. Tree-in-bud changes are se en in the right lung is most likely postinfection changes or atelectasis. No pulmonary nodules or mas ses. No infiltrates or effusions. No pneumothorax. Left pleural calcification is seen adjacent to the diaphragm. VISUALIZED UPPER ABDOMEN: Stone in the left kidney all measuring 5 mm. Otherwise, the visualized uppe r abdomen is normal. MUSCULOSKELETAL: Soft tissues: The superficial soft tissues are normal. Bones: Normal spine. IMPRESSION: 1. Subsegmental atelectasis in the right upper lobe adjacent to the transverse fissure. No definite abnormality seen. Follow-up to resolution advised 2. atelectasis in the left lower lobe with bronchiectatic changes.. 3. Left kidney stone. Reviewed, dictated and finalized at location A.
--- NOTE | 2024-08-13 17:00 | ECG_ITS ---
Test Date: 2024-08-13 17:19:57 Measurements Intervals [place] Rate: 88 P: 31 NC: 171 QRS: 6 QRSD: 109 T: 55 QT: 383 QTc: 465 Interpretive Statements SINUS RHYTHM NONSPECIFIC ST AND T-WAVE ABNORMALITY No previous ECG available for comparison Electronically Signed On 08-14-2024 10:10:07 CDT by Marco Antonio Puente M.D.
--- NOTE | 2024-08-13 17:01 | ED.GENADULT ---
HPI - General Adult General Chief complaint: Upper Respiratory Infection <Selwyn Kessler APRN - Last Filed: 08/13/24 17:03> Stated complaint: cough <Selwyn Kessler APRN - Last Filed: 08/13/24 17:03> Time Seen by Provider: 08/13/24 17:53 <Selwyn Kessler APRN - Last Filed: 08/13/24 17:03> 54-year-old male presents with continuing cough and chest congestion. Patient states he has been sick for 3 weeks. Patient says he has seen his PCP multiple times. Patient states he was diagnosed with pneumonia on Sunday insert with azithromycin and cefdinir. Patient states he is getting worse General appearance: Well-developed, well-nourished Skin: Normal color Head: Normocephalic, nontraumatic Eyes: Clear conjunctiva ENT: Oropharynx normal, ears normal, nose normal Neck: Supple, nontender Chest and respiratory: decreased left lower lung base, no respiratory distress, no accessory muscle use Heart: Regular rate/rhythm Abdomen: Soft, nontender, no organomegaly, quiet bowel sounds Vascular: Normal peripheral pulses, normal capillary refill. Musculoskeletal: Normal range of motion, nontender back Neurologic: Alert and oriented ?3, [employer] is normal as tested, no gross motor deficit <Selwyn Kessler APRN - Last Filed: 08/13/24 17:03> History of Present Illness HPI narrative: I agree with the note and assessment by Selwyn Duong NP. <Bettina Tran APRN - Last Filed: 08/13/24 21:46> Related Data Home medications: Home Medications Medication Instructions Recorded Confirmed clonazepam 0.5 mg tablet 0.5 mg PO BID 11/17/19 08/11/24 paroxetine HCl 40 mg tablet 40 mg PO DAILY 11/17/19 08/11/24 loratadine 10 mg tablet 10 mg PO DAILY 01/22/24 08/11/24 <Selwyn Kessler APRN - Last Filed: 08/13/24 17:03> Allergies/adverse reactions: Allergies Allergy/AdvReac Type Severity Reaction Status Date / Time atorvastatin Allergy Severe Anaphylaxis Verified 08/13/24 17:42 buspirone Allergy Severe Anaphylaxis Verified 08/13/24 17:42 cholecalciferol (vitamin D3) Allergy Severe Anaphylaxis Verified 08/13/24 17:42 ferumoxytol Allergy Severe Anaphylaxis Verified 08/13/24 17:42 methocarbamol Allergy Severe Anaphylaxis Verified 08/13/24 17:42 Oapsnob-YME-ZyC Reductase Allergy Severe Anaphylaxis Verified 08/13/24 17:42 Inhibitor [Ilzxcpd-Inz-Xiz Reductase Inhibitor] sulfamethizole Allergy Severe Anaphylaxis Verified 08/13/24 17:42 sulfamethoxazole Allergy Severe Anaphylaxis Verified 08/13/24 17:42 tramadol Allergy Severe Anaphylaxis Verified 08/13/24 17:42 trimethoprim Allergy Severe Anaphylaxis Verified 08/13/24 17:42 <Selwyn Kessler APRN - Last Filed: 08/13/24 17:03> Review of Systems Review of Systems: All systems reviewed & are unremarkable except as noted in HPI and below <Bettina Tran APRN - Last Filed: 08/13/24 21:46> PMFSH Past Medical History Medical History: Medical History Acquired elevated hemidiaphragm Arthritis Chronic cough CKD (chronic kidney disease), stage III Claustrophobia Degenerative tear of glenoid labrum of right shoulder Internal impingement of right shoulder Obesity Statin intolerance Tendinitis of right rotator cuff <Selwyn Kessler APRN - Last Filed: 08/13/24 17:03> Surgical History Surgical History: Surgical History History of cervical discectomy C5-6,C6-7,C7-T1 Fusion approximately 07/2020. History of lumbar spinal fusion History of thoracic surgery diaphragm plication 07/2022 S/P arthroscopy of right shoulder <Selwyn Kessler APRN - Last Filed: 08/13
[2024-08-13 17:41] LABS: Basophils Percent Auto 0.1 % (0.2-1.2); Eosinophils Percent Auto 0.1 % (0-4.4); Hematocrit 43.6 % (42.0-52.0); Immature Granulocyte Absolute 0.09 K/mm3 (0.00-0.031); Immature Granulocyte Percent A 0.6 % (0-0.5); Lymphocytes Absolute Auto 1.48 K/mm3 (0.9-3.2); Lymphocytes Percent Auto 9.7 % (18.3-44.2); Mean Corpuscular HGB Conc 34.4 g/dl (32-36); Mean Corpuscular Hemoglobin 29.5 pg (26-34); Mean Corpuscular Volume 85.7 fl (80-100); Mean Platelet Volume 11.2 fl (7.4-10.4); Monocytes Absolute Auto 0.6 K/mm3 (0.1-0.6); Monocytes Percent Auto 4.2 % (2.6-8.5); Neutrophils Percent Auto 85.3 % (45.5-73.1); Platelet Count Result 354 k/mm3 (150-375); Red Blood Count 5.09 M/mm3 (4.6-6.20); Red Cell Distribution Width 12.9 % (11.5-14.5); White Blood Count 15.2 K/mm3 (4.5-10.0)
[2024-08-13 17:51] LABS: Alanine Aminotransferase 23 U/L (6-50); Albumin Level 4.5 g/dL (3.5-5.1); Alkaline Phosphatase 83 U/L (38-126); Anion Gap 12 mmol/L (4-12); Aspartate Amino Transferase 48 U/L (17-59); Bilirubin,Total 0.6 mg/dL (0.2-1.3); Blood Urea Nitrogen 19 mg/dL (9-20); Calcium 9.2 mg/dL (8.4-10.2); Carbon Dioxide 21 mmol/L (22-30); Chloride 102 mmol/L (98-107); Estimated CRCL calculation 79 ml/min; Estimated Glomerular Filt Rate > 60; Glucose 161 mg/dL (65-110); Sodium 135 mmol/L (137-145)
[2024-08-13 17:52] LABS: Lactic Acid Reflex 2.4 mmol/L (0.7-2.0)
[2024-08-13 17:56] LABS: INR 1.1; Prothrombin Time 14.5 Seconds (11.1-14.7)
[2024-08-13 17:57] LABS: Partial Thromboplastin Time 29.4 Seconds (22.3-36.8)
[2024-08-13 18:03] LABS: NT Pro B Type Natriuretic Pept < 20 pg/mL (19.9-100); Troponin I < 0.012 ng/mL (0.000-0.034)
[2024-08-13 18:04] LABS: D Dimer 0.43 ug/mL (<0.48)
[2024-08-13] MEDS: SODIUM CHLORIDE 0.9% IV 3,300 ML/1,000 ML BAG 999 ML IV CONT ×2 (19:20→20:18)
[2024-08-13 19:39] LABS: Influenza A QL RT-PCR Negative (Negative); Influenza B QL RT-PCR Negative (Negative); RSV RNA, RT-PCR Negative (Negative); SARS-CoV-2 RNA PCR Negative (Negative)
[2024-08-13] MEDS: AZITHROMYCIN 500 MG/NS 250 ML 500 MG/250 ML BAG 250 MG IVPB (19:47)
--- NOTE | 2024-08-13 20:08 | PC.NURSE ---
500ml NS 0.9% used for remaining 300ml for bolus instead of waisting 700ml in 1000ml bag.
[2024-08-13] MEDS: MORPHINE SULFATE (*CRX) 4 MG/ML INJ IV PUSH (20:17)
[2024-08-13] MEDS: diphenhydrAMINE HCl INJ 50 MG/ML VIAL 25 MG IV PUSH (20:17)
[2024-08-13] MEDS: methylPREDNISolone SOD SUCC 125 MG VIAL IV PUSH (20:18)
[2024-08-13] MEDS: BENZONATATE 100 MG CAPSULE 200 MG PO (20:31)
[2024-08-13 20:39] LABS: Reflex Lactic Acid Yes or No Add Lactic
[2024-08-13] MEDS: ALBUTEROL SULFATE NEB 2.5 MG/3 ML INH 10 MG INHALATION (21:08)
[2024-08-13 21:31] LABS: Lactic Acid 1.8 mmol/L (0.7-2.0)
--- NOTE | 2024-08-13 22:01 | PC.NURSE ---
total volume of 2,000ml infused in patient instead of original 3,300ml bolus. VORB to discontinue last 1,300ml of fluids bolus order per provider. remaining IV fluid bags returned to [facility].
== END 2024-08-13 22:15 | disposition home or self-care (01) ==
PROVIDERS: Nurse Practitioner Family; Emergency Provider Registered Nurse; PCP Family Medicine
DX: J18.9 Pneumonia, unspecified organism (principal); J06.9 Acute upper respiratory infection, unspecified; N20.0 Calculus of kidney; Z20.822 Contact with and (suspected) exposure to COVID-19; N18.30 Chronic kidney disease, stage 3 unspecified; E66.9 Obesity, unspecified; Z68.33 Body mass index [BMI] 33.0-33.9, adult; M19.90 Unspecified osteoarthritis, unspecified site; Z98.1 Arthrodesis status; Z79.899 Other long term (current) drug therapy; R94.31 Abnormal electrocardiogram [ECG] [EKG]; R91.1 Solitary pulmonary nodule
CPT/HCPCS: 36415; 71046; 71250; 80053; 83605; 83880; 84484; 85025; 85380; 85610; 85730; 87040; 87637; 93005; 96365; 96367; 96375; 99284; A9270; J0456; J0696; J1200; J2270; J2919; J7030; J7040

== ENCOUNTER 2024-08-21 15:47 | Outpatient (CLI) | payer OTHER, SELFPAY ==
--- NOTE | ~2024-08-21 | XR_ITS ---
CHEST RADIOGRAPH, PA AND LATERAL CLINICAL HISTORY: R05.9 - Cough, unspecified . COMPARISON: 08/13/2024. Reference is also made to a diagnostic CT of the chest dated 08/13/2024 TECHNIQUE: PA and lateral views of the chest. FINDINGS The cardiomediastinal silhouette is unremarkable. Improved aeration of the right hemithorax when compared with previous study. Blunting of the left costophrenic sulcus is present suggesting a small left-sided pleural effusion. Persistent bronchiectasis within the retrocardiac position, unchanged corresponding to recent CT exam ination dated 08/13/2024 The remainder of the lungs are clear. Visualized osseous structures and soft tissues are unremarkable. IMPRESSION: Small left-sided pleural effusion without focal infiltrate. Persistent left-sided bronchiectasis, as detailed above. Reviewed, dictated and finalized at location A.
[2024-08-21 16:16] LABS: Basophils Percent Auto 0.2 % (0.2-1.2); Eosinophils Absolute Auto 0.1 K/mm3 (0-0.3); Hemoglobin 14.5 g/dL (14.0-18.0); Immature Granulocyte Absolute 0.05 K/mm3 (0.00-0.031); Immature Granulocyte Percent A 0.6 % (0-0.5); Lymphocytes Absolute Auto 1.58 K/mm3 (0.9-3.2); Lymphocytes Percent Auto 18.2 % (18.3-44.2); Mean Corpuscular HGB Conc 33.7 g/dl (32-36); Mean Corpuscular Hemoglobin 29.2 pg (26-34); Mean Corpuscular Volume 86.7 fl (80-100); Mean Platelet Volume 10.4 fl (7.4-10.4); Monocytes Absolute Auto 0.6 K/mm3 (0.1-0.6); Monocytes Percent Auto 6.3 % (2.6-8.5); Neutrophils Absolute Auto 6.4 K/mm3 (1.3-6.7); Neutrophils Percent Auto 73.7 % (45.5-73.1); Platelet Count Result 370 k/mm3 (150-375); Red Blood Count 4.96 M/mm3 (4.6-6.20); Red Cell Distribution Width 13.1 % (11.5-14.5); White Blood Count 8.7 K/mm3 (4.5-10.0)
[2024-08-21 16:34] LABS: CRP 1.6 mg/dL (<1.0)
[2024-08-21 16:55] LABS: Erythrocyte Sedimentation Rate 22 mm/hr (0-20)
[2024-08-21 17:55] LABS: Free T4 Free Thyroxine 1.63 ng/mL (0.78-2.19)
== END 2024-08-21 15:48 | disposition home or self-care (01) ==
LOC: ANHLAB 15:48
PROVIDERS: PCP Family Medicine; Visit Provider Student in an Organized Health Care Education/Training Program
DX: J90 Pleural effusion, not elsewhere classified (principal); J47.9 Bronchiectasis, uncomplicated; E07.89 Other specified disorders of thyroid; R13.10 Dysphagia, unspecified; R49.0 Dysphonia
CPT/HCPCS: 36415; 71046; 84439; 84443; 85025; 85652; 86140

== ENCOUNTER 2024-09-01 00:59 | Day surgery (SDC) | payer OTHER, SELFPAY ==
[2024-08-28 08:43] VITALS: BMI 33.5
[2024-09-01 08:52] VITALS: BP 122/88; PULSE 67; RESP 20; TEMP 36.1; O2SAT 100; BMI 32.2
--- NOTE | 2024-09-01 09:23 | WPDANESEPPF ---
Anes - Initial Pre Proc Eval Procedure: Operation Date: 09/01/24 10:00 Proposed Procedures p Esophagogastroduodenoscopy - Ramon More MD Date/Time: 09/01/24 09:23 Surgeon: Ramon More MD Pre Op Diagnosis: dysphagia Patient Data Age: 54 Gender: M Height: 1.8 m Weight: 104.9 kg Last Vital Signs Temp 36.1 C L 09/01/24 08:52 Pulse 67 09/01/24 08:52 Resp 20 09/01/24 08:52 BP 122/88 09/01/24 08:52 Pulse Ox 100 09/01/24 08:52 O2 Del Method Room Air 09/01/24 08:52 Allergies Allergy/AdvReac Type Severity Reaction Status Date / Time atorvastatin Allergy Severe Anaphylaxis Verified 09/01/24 08:58 buspirone Allergy Severe Anaphylaxis Verified 09/01/24 08:58 cholecalciferol (vitamin D3) Allergy Severe Anaphylaxis Verified 09/01/24 08:58 ferumoxytol Allergy Severe Anaphylaxis Verified 09/01/24 08:58 methocarbamol Allergy Severe Anaphylaxis Verified 09/01/24 08:58 Fnucgiz-BAD-MmA Reductase Allergy Severe Anaphylaxis Verified 09/01/24 08:58 Inhibitor [Njfrvdf-Sub-Myg Reductase Inhibitor] sulfamethizole Allergy Severe Anaphylaxis Verified 09/01/24 08:58 sulfamethoxazole Allergy Severe Anaphylaxis Verified 09/01/24 08:58 tramadol Allergy Severe Anaphylaxis Verified 09/01/24 08:58 trimethoprim Allergy Severe Anaphylaxis Verified 09/01/24 08:58 Home Medications Medication Instructions Recorded Confirmed Type clonazepam 0.5 mg tablet 0.5 mg PO BID 11/17/19 09/01/24 History paroxetine HCl 40 mg tablet 40 mg PO DAILY 11/17/19 09/01/24 History fenofibrate 160 mg tablet 160 mg PO DAILY #90 tabs 09/03/23 09/01/24 Rx ezetimibe 10 mg tablet (Zetia) 10 mg PO DAILY #90 tabs 10/08/23 09/01/24 Rx ropinirole 0.25 mg tablet See Rx Instructions .Route 11/19/23 09/01/24 Rx .COMPLEX #180 tabs loratadine 10 mg tablet 10 mg PO DAILY 01/22/24 09/01/24 History plecanatide 3 mg tablet (Trulance) 3 mg PO DAILY #30 tabs 06/18/24 09/01/24 Rx diltiazem HCl 180 mg See Rx Instructions .Route 06/25/24 09/01/24 Rx capsule,extended release 24 hr .COMPLEX #30 caps valsartan 320 mg tablet 320 mg PO DAILY #90 tabs 06/27/24 09/01/24 Rx albuterol sulfate 90 mcg/actuation 1 inh inhalation Q4H PRN shortness 08/11/24 09/01/24 Rx aerosol inhaler of breath or wheezing #6.7 grams dexamethasone 4 mg tablet 4 mg PO BID #24 tabs 08/21/24 09/01/24 Rx omeprazole 20 mg capsule,delayed 20 mg PO DAILY #30 caps 08/21/24 09/01/24 Rx release Patient hx anesthesia problems: none Family hx anesthesia problems: none Results Review: All pre-operative results and documents have been reviewed as part of the pre-operative evaluation. [facility] Past Medical History Medical History Acquired elevated hemidiaphragm Arthritis Chronic cough CKD (chronic kidney disease), stage III Claustrophobia Degenerative tear of glenoid labrum of right shoulder Internal impingement of right shoulder Obesity Statin intolerance Tendinitis of right rotator cuff Surgical History Surgical History History of cervical discectomy C5-6,C6-7,C7-T1 Fusion approximately 07/2020. History of lumbar spinal fusion History of thoracic surgery diaphragm plication 07/2022 S/P arthroscopy of right shoulder Family History Family History Father Hypertension Mother Hypertension Sibling Hypertension Other Arthritis Diabetes mellitus High cholesterol Neuropathy Social History Social History Social History: Spouse Smoking status: Never smoker Second hand tobacco smoke exposure: No Alcohol intake: current Alcohol use details: 2 per month Substance use: never Substance use type: does not use Do You Feel Safe in your Home?: Yes Lack of Transportation: No Lack of Food: Never True Current Housing: I Have Housing Concerned About Future Housing: No Difficulty Paying Gas/Electric Bills: No Difficulty Paying for Meds: No Currently Unemployed: No Education: Master's Degree or Higher Difficulty w/ Childcare or Family Care: No Living arrangements: with family Occupation/Education: occupation Gender identity (if verbalized by the patient): Male Sexual Orientation (if Verbalized by the Patient): Lesbian, Garcia, or Homosexual Spiritual care concerns: No Anes - Eval Final PreProcedure Day of Procedure 09/01/24 09:23 Patient weight: obese Heart: regular rate and rhythm Lungs: clear to auscultation Airway: Mallampati scale class II Neurological: alert and oriented Last oral intake: >/= 8 hours ASA classification: III Emergent: no Anesthetic plan: proceed Anesthesia type and monitoring: general GIVS and standard monitoring Results Review: All pre-operative results and documents have been reviewed as part of the pre-operative evaluation. Informed Consent: The patient's anesthetic plan and its attendant risks and benefits were discussed with the patient/family/POA. Questions were solicited and answers provided to the satisfaction of the patient/family/POA.
[2024-09-01] MEDS: LACTATED RINGERS 1,000 ML 150 ML IV CONT (09:38)
--- NOTE | 2024-09-01 10:32 | P.HP_ITS ---
H&P: HPI History of Present Illness Date/Time: 09/01/24 10:32 Chief Complaint: Dysphagia Narrative: the patient has been experiencing difficulty swallowing with a component of pain since last month, approximately 4 weeks ago. At that time, he was suffering from a upper respiratory infection, and was prescribed some antibiotics. He can not relate the onset of the medication to his current dysphagia and odynophagia. Review of Systems Review of Systems: All systems reviewed & are unremarkable except as noted in HPI and below PMFSH Past Medical History Medical History Acquired elevated hemidiaphragm Arthritis Chronic cough CKD (chronic kidney disease), stage III Claustrophobia Degenerative tear of glenoid labrum of right shoulder Internal impingement of right shoulder Obesity Statin intolerance Tendinitis of right rotator cuff Surgical History Surgical History History of cervical discectomy C5-6,C6-7,C7-T1 Fusion approximately 07/2020. History of lumbar spinal fusion History of thoracic surgery diaphragm plication 07/2022 S/P arthroscopy of right shoulder Family History Family History Father Hypertension Mother Hypertension Sibling Hypertension Other Arthritis Diabetes mellitus High cholesterol Neuropathy Social History Social History Social History: Spouse Smoking status: Never smoker Second hand tobacco smoke exposure: No Alcohol intake: current Alcohol use details: 2 per month Substance use: never Substance use type: does not use Do You Feel Safe in your Home?: Yes Lack of Transportation: No Lack of Food: Never True Current Housing: I Have Housing Concerned About Future Housing: No Difficulty Paying Gas/Electric Bills: No Difficulty Paying for Meds: No Currently Unemployed: No Education: Master's Degree or Higher Difficulty w/ Childcare or Family Care: No Living arrangements: with family Occupation/Education: occupation Gender identity (if verbalized by the patient): Male Sexual Orientation (if Verbalized by the Patient): Lesbian, Garcia, or Homosexual Spiritual care concerns: No Meds Home Medications and Allergies Home Medications Medication Instructions Recorded Confirmed Type clonazepam 0.5 mg tablet 0.5 mg PO BID 11/17/19 09/01/24 History paroxetine HCl 40 mg tablet 40 mg PO DAILY 11/17/19 09/01/24 History fenofibrate 160 mg tablet 160 mg PO DAILY #90 tabs 09/03/23 09/01/24 Rx ezetimibe 10 mg tablet (Zetia) 10 mg PO DAILY #90 tabs 10/08/23 09/01/24 Rx ropinirole 0.25 mg tablet See Rx Instructions .Route 11/19/23 09/01/24 Rx .COMPLEX #180 tabs loratadine 10 mg tablet 10 mg PO DAILY 01/22/24 09/01/24 History plecanatide 3 mg tablet (Trulance) 3 mg PO DAILY #30 tabs 06/18/24 09/01/24 Rx diltiazem HCl 180 mg See Rx Instructions .Route 06/25/24 09/01/24 Rx capsule,extended release 24 hr .COMPLEX #30 caps valsartan 320 mg tablet 320 mg PO DAILY #90 tabs 06/27/24 09/01/24 Rx albuterol sulfate 90 mcg/actuation 1 inh inhalation Q4H PRN shortness 08/11/24 09/01/24 Rx aerosol inhaler of breath or wheezing #6.7 grams dexamethasone 4 mg tablet 4 mg PO BID #24 tabs 08/21/24 09/01/24 Rx omeprazole 20 mg capsule,delayed 20 mg PO DAILY #30 caps 08/21/24 09/01/24 Rx release Allergies Allergy/AdvReac Type Severity Reaction Status Date / Time atorvastatin Allergy Severe Anaphylaxis Verified 09/01/24 08:58 buspirone Allergy Severe Anaphylaxis Verified 09/01/24 08:58 cholecalciferol (vitamin D3) Allergy Severe Anaphylaxis Verified 09/01/24 08:58 ferumoxytol Allergy Severe Anaphylaxis Verified 09/01/24 08:58 methocarbamol Allergy Severe Anaphylaxis Verified 09/01/24 08:58 Pejupnl-GVB-HkZ Reductase Allergy Severe Anaphylaxis Verified 09/01/24 08:58 Inhibitor [Erpzxbc-Mge-Tky Reductase Inhibitor] sulfamethizole Allergy Severe Anaphylaxis Verified 09/01/24 08:58 sulfamethoxazole Allergy Severe Anaphylaxis Verified 09/01/24 08:58 tramadol Allergy Severe Anaphylaxis Verified 09/01/24 08:58 trimethoprim Allergy Severe Anaphylaxis Verified 09/01/24 08:58 Vital Signs Vital Signs - 24 hr 09/01/24 08:52 Temperature 96.9 F L Pulse Rate 67 Respiratory Rate 20 Blood Pressure 122/88 Pulse Oximetry 100 Oxygen Delivery Room Air Assessment and Plan Assessment and plan (1) Dysphagia: Code(s): R13.10 - Dysphagia, unspecified Status: Acute Assessment and Plan: The patient is deemed a good candidate for the procedure. Pill induced eso phagitis suspected. Consent signed. Will proceed.
[2024-09-01] MEDS: BENZOCAINE (*SP) 60 ML SPRAY CAN (HURRICAINE) 1 SPRAY MUCOUS MEM (10:37)
--- NOTE | 2024-09-01 10:42 | PM.IMHP ---
H&P: HPI History of Present Illness Date/Time: 09/01/24 10:42 Chief Complaint: dysphagia PMFSH Past Medical History Medical History Acquired elevated hemidiaphragm Arthritis Chronic cough CKD (chronic kidney disease), stage III Claustrophobia Degenerative tear of glenoid labrum of right shoulder Internal impingement of right shoulder Obesity Statin intolerance Tendinitis of right rotator cuff Surgical History Surgical History History of cervical discectomy C5-6,C6-7,C7-T1 Fusion approximately 07/2020. History of lumbar spinal fusion History of thoracic surgery diaphragm plication 07/2022 S/P arthroscopy of right shoulder Family History Family History Father Hypertension Mother Hypertension Sibling Hypertension Other Arthritis Diabetes mellitus High cholesterol Neuropathy Social History Social History Social History: Spouse Smoking status: Never smoker Second hand tobacco smoke exposure: No Alcohol intake: current Alcohol use details: 2 per month Substance use: never Substance use type: does not use Do You Feel Safe in your Home?: Yes Lack of Transportation: No Lack of Food: Never True Current Housing: I Have Housing Concerned About Future Housing: No Difficulty Paying Gas/Electric Bills: No Difficulty Paying for Meds: No Currently Unemployed: No Education: Master's Degree or Higher Difficulty w/ Childcare or Family Care: No Living arrangements: with family Occupation/Education: occupation Gender identity (if verbalized by the patient): Male Sexual Orientation (if Verbalized by the Patient): Lesbian, Garcia, or Homosexual Spiritual care concerns: No Meds Home Medications and Allergies Home Medications Medication Instructions Recorded Confirmed Type clonazepam 0.5 mg tablet 0.5 mg PO BID 11/17/19 09/01/24 History paroxetine HCl 40 mg tablet 40 mg PO DAILY 11/17/19 09/01/24 History fenofibrate 160 mg tablet 160 mg PO DAILY #90 tabs 09/03/23 09/01/24 Rx ezetimibe 10 mg tablet (Zetia) 10 mg PO DAILY #90 tabs 10/08/23 09/01/24 Rx ropinirole 0.25 mg tablet See Rx Instructions .Route 11/19/23 09/01/24 Rx .COMPLEX #180 tabs loratadine 10 mg tablet 10 mg PO DAILY 01/22/24 09/01/24 History plecanatide 3 mg tablet (Trulance) 3 mg PO DAILY #30 tabs 06/18/24 09/01/24 Rx diltiazem HCl 180 mg See Rx Instructions .Route 06/25/24 09/01/24 Rx capsule,extended release 24 hr .COMPLEX #30 caps valsartan 320 mg tablet 320 mg PO DAILY #90 tabs 06/27/24 09/01/24 Rx albuterol sulfate 90 mcg/actuation 1 inh inhalation Q4H PRN shortness 08/11/24 09/01/24 Rx aerosol inhaler of breath or wheezing #6.7 grams dexamethasone 4 mg tablet 4 mg PO BID #24 tabs 08/21/24 09/01/24 Rx omeprazole 20 mg capsule,delayed 20 mg PO DAILY #30 caps 08/21/24 09/01/24 Rx release Allergies Allergy/AdvReac Type Severity Reaction Status Date / Time atorvastatin Allergy Severe Anaphylaxis Verified 09/01/24 08:58 buspirone Allergy Severe Anaphylaxis Verified 09/01/24 08:58 cholecalciferol (vitamin D3) Allergy Severe Anaphylaxis Verified 09/01/24 08:58 ferumoxytol Allergy Severe Anaphylaxis Verified 09/01/24 08:58 methocarbamol Allergy Severe Anaphylaxis Verified 09/01/24 08:58 Yyvscjj-SGC-OmP Reductase Allergy Severe Anaphylaxis Verified 09/01/24 08:58 Inhibitor [Tpjrism-Bef-Eev Reductase Inhibitor] sulfamethizole Allergy Severe Anaphylaxis Verified 09/01/24 08:58 sulfamethoxazole Allergy Severe Anaphylaxis Verified 09/01/24 08:58 tramadol Allergy Severe Anaphylaxis Verified 09/01/24 08:58 trimethoprim Allergy Severe Anaphylaxis Verified 09/01/24 08:58 Vital Signs Vital Signs - 24 hr 09/01/24 08:52 Temperature 96.9 F L Pulse Rate 67 Respiratory Rate 20 Blood Pressure 122/88 Pulse Oximetry 100 Oxygen Delivery Room Air Exam Const: General: cooperative and healthy appearing Resp: Effort & Inspection: normal respiratory effort and able to speak in complete sentences Auscultation: clear to auscultation bilaterally Cardio: Rate: regular rate Rhythm: regular rhythm GI: Inspection: normal to inspection GI Palp: No No hepatosplenomegaly present Auscultation: normal bowel sounds Rectal Exam: deferred Skin: General skin exam: normal color Psych: Appearance: grossly normal Mental Status: mental status grossly normal
[2024-09-01 10:59] VITALS: BP 120/77; PULSE 75; RESP 20; O2SAT 98
[2024-09-01 11:09] VITALS: BP 127/89; PULSE 72; RESP 23; O2SAT 98
[2024-09-01 11:19] VITALS: BP 125/94; PULSE 73; RESP 22; O2SAT 98
== END 2024-09-01 11:32 | disposition home or self-care (01) ==
PROVIDERS: PCP Family Medicine; Referring Provider Student in an Organized Health Care Education/Training Program; Visit Provider Internal Medicine Gastroenterology
PROC: 0DJ08ZZ Inspection of Upper Intestinal Tract, Via Natural or Artificial Opening Endoscopic (ICD-10-PCS; CPT 43235; principal; 2024-09-01 10:00)
DX: K29.51 Unspecified chronic gastritis with bleeding (principal); R05.3 Chronic cough; N18.30 Chronic kidney disease, stage 3 unspecified; F40.240 Claustrophobia; E66.9 Obesity, unspecified; Z68.32 Body mass index [BMI] 32.0-32.9, adult; Z79.51 Long term (current) use of inhaled steroids; Z98.890 Other specified postprocedural states; Z98.1 Arthrodesis status
CPT/HCPCS: 43239; 88305; J2003; J2704; J7120

== ENCOUNTER 2024-09-18 08:34 | Outpatient (CLI) | payer OTHER, SELFPAY ==
--- NOTE | ~2024-09-18 | CT_ITS ---
EXAMINATION: CT soft tissue neck wo con DATE: 09/18/2024 08:49 INDICATION: Dysphagia, unspecified. TECHNIQUE: Computed tomography (CT) of the neck was performed without intravenous contrast. Automated exposure control and iterative reconstruction technique were employed. The dose-length product was 4 44.17 mGy-cm. COMPARISON: None FINDINGS: There are no pathologically enlarged lymph nodes. There is the pharynx and larynx are unrem arkable. There is mild mucosal thickening in the paranasal sinuses. The mastoid air cells are normal. There are changes of anterior fusion procedure from C3 to T1 with anterior plate and screws and inte rbody devices. There is moderate cervical spondylosis. IMPRESSION: 1. No specific etiology for the patient's symptoms. Reviewed, dictated and finalized at location [facility]
== END 2024-09-18 08:35 | disposition home or self-care (01) ==
LOC: MICIMG 08:35
PROVIDERS: PCP Family Medicine; Visit Provider Physician Assistant
DX: R13.10 Dysphagia, unspecified (principal)
CPT/HCPCS: 70490

== ENCOUNTER 2025-01-22 00:54 | Day surgery (SDC) | payer OTHER, SELFPAY ==
[2025-01-13 11:26] VITALS: BMI 34.2
--- OUTSIDE RECORDS SUMMARY | 2025-01-22 00:58 | XMS_ITS | Clinical Summary ---
Author Organization [facility] Address [address] [place] [address] Phone Care Team Providers Care Retirement Actuary Name Role Phone Saeed Carvalho MD Primary Care Provider [phone] Allergies Active Allergy Reactions Criticality Noted Date Comments Ciprofloxacin Anaphylaxis High 09/11/2019 Iron Swelling Low 11/19/2017 Methocarbamol Swelling High 11/19/2017 Sulfamethoxazole-Trimethoprim Swelling High 2018 Medications lisinopril (PRINIVIL) 40 mg tablet Take 40 mg by mouth daily. Active clonazePAM (KlonoPIN) 0.5 mg Tablet TAKE 2 TABLETS BY MOUTH IN THE EVENING 1 06/01/2019 Active fenofibrate (LOFIBRA) 160 mg Tablet 160 mg daily. 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 Family History Medical History Relation Name Comments Colon Cancer Maternal Grandmother Colon Polyps Mother Relation Name Status Comments Maternal Grandmother Other Mother Social History Tobacco Use Types Packs/Day Years Used Date Smoking Tobacco: Never Alcohol Use Standard Drinks/Week Comments Yes 0 (1 standard drink = 0.6 oz pur e alcohol) Sex and Gender Information Value Date Recorded Sex Assigned at Not on file Legal Sex Male 11:07 AM CDT Gender Identity Not on file Sexual Orientation Not on file Last Filed Vital Signs Vital Sign Reading Time Taken Comments Blood Pressure 157/104 09/22/2019 11:51 AM DOCUMENT IMPROVEMENT SPECIALIST Pulse 82 09/22/2019 11:51 AM DOCUMENT IMPROVEMENT SPECIALIST Temperature 36.4 C (97.6 F) 07/23/2019 2:27 PM CDT Respiratory Rate 18 07/23/2019 2:27 PM CDT Oxygen Saturation 100% 07/23/2019 2:27 PM CDT Inhaled Oxygen Concentration - - Weight 104.3 kg (230 lb) 09/22/2019 11:51 AM DOCUMENT IMPROVEMENT SPECIALIST Height 180.3 cm (5' 11 ) 09/22/2019 11:51 AM DOCUMENT IMPROVEMENT SPECIALIST Body Mass Index 32.08 09/22/2019 11:51 AM DOCUMENT IMPROVEMENT SPECIALIST Plan of Treatment Health Maintenance Due Date Last Done Comments DTAP/TDAP/TD VACCINES (1 - Tdap) 1989 HEPATITIS B VACCINES (1 of 3 - 19+ 3-dose series) 12/27 COLORECTAL SCREENING 2015 Colorectal Cancer Screening 2015 FIT-DNA Q 3 years 2015 FIT/FOBT Q 1 year 2015 Flex Sig/CT Colonography Q 5 years 2015 ZOSTER VACCINE (1 of 2) 01/15/2020 INFLUENZA VACCINE (#1) 2024 Insurance [facility] PREFERRED RX [facility] Commercial Advance Directives For more information, please contact: [phone] * Full Code (Latest Code Status on File) Date Activated Date Inactivated Comments 07/23/2019 1:22 PM 07/23/2019 4:43 PM * Full Code Date Activated Date Inactivated Comments 07/23/2019 1:20 PM 07/23/2019 1:22 PM * Full Code Date Activated Date Inactivated Comments 07/23/2019 11:15 AM 07/23/2019 1:20 PM Care Teams Retirement Actuary Relationship Specialty Start Date End Date Saeed Carvalho MD [address] [facility] [address] [place] [id number] PCP - General Family Practice 06/25/19
--- OUTSIDE RECORDS SUMMARY | 2025-01-22 00:58 | XMS_ITS | Encounter Summary ---
Author Organization [facility] Address [address] [place] [id number] Care Team Providers Care Brick Tender Name Role Phone Saeed Carvalho MD Primary Care Provider [phone] Encounter Details Date Type Department Care Team (Late st Contact Info) Description 02/14/2023 Accountablehart Message Enc [facility] [address] [facility] [place] [id number] Freeman Howard MD [address] [facility] [address] [place] [address] PULMONARY STUDY Social History Tobacco Use Types Packs/Day Years Used Date Smoking Tobacco: Never Smokeless Tobacco: Never Comments:Never Smoked Alcohol Use Standard Drinks/Week Comments Not Currently 5 (1 standard drink = 0.6 oz pur e alcohol) Monthly AUDIT-C Answer Date Recorded Frequency of Alcohol Consumption Never 06/18/2019 Average Number of Drinks Not on file 019 Frequency of Binge Drinking Not on file 05/30 PHQ-2 Answer Date Recorded Patient Health Questionnaire-2 Score 0 01/16/2023 Sex and Gender Information Value Date Recorded Sex Assigned at Not on file Legal Sex Male 6:56 PM CDT Gender Identity Male 11/28/2021 4:54 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 No / Unsure 02/13/2023 9:37 AM CDT documented as of this encounter Plan of Treatment Not on file documented as of this encounter Visit Diagnoses Not on filedocumented in this encounter Additional Health Concerns Assessment Noted Time PHQ-9 Depression Total Score: 0 11/29/19 22 2:07 PM DATA ENTRY MACHINE OPERATOR documented as of this encounter Care Teams Brick Tender Relationship Specialty Start Date End Date Saeed Carvalho MD [address] [facility] [address] [place] [address] PCP - General 07/15/14 documented as of this encounter
--- OUTSIDE RECORDS SUMMARY | 2025-01-22 00:58 | XMS_ITS | Clinical Summary ---
Author Organization [facility] Address [address] [place] [address] Care Team Providers Care Transcript Evaluator Name Role Phone Saeed Carvalho MD Primary Care Provider Freeman Howard MD Unavailable [phone] Huey Morales MD Unavailable [phone] Allergies Active Allergy Reactions Criticality Noted Date Comments Buspirone Angioedema High 06/05/2013 Ciprofloxacin Anaphylaxis High 09/08/2019 Gemfibrozil Other (See comments) High 06/19/2018 Iron Anaphylaxis,Swelling High 11/19/2017 IV iron infusion caused throat to swell Methocarbamol Unknown,Hives Medium 09/10/2003 Lasdmuz-Udh-Fxx Reductase Inhibitors Other (See comments) Low 04/16/2014 Sulfamethoxazole-Trimet hoprim Unknown 08/30/2017 Tramadol Angioedema High 05/03/2018 Medications fenofibrate (TRIGLIDE) 160 mg tablet Take 1 tablet (160 mg total) by mouth daily 08/30/2017 Active clonazePAM (KlonoPIN) 1 mg tablet Active ezetimibe (ZETIA) 10 mg tablet Take 1 tablet (10 mg total) by mouth daily Active PARoxetine (PAXIL) 40 mg tablet Take 2 tablets (80 mg total) by mouth daily 11/21/2016 Active propranoloL (INDERAL) 20 mg tablet Take 1 tablet (20 mg total) by mouth every 12 (twelve) hours 03/16/2023 Active dilTIAZem CD 120 mg 24 hr capsule Take 1 capsule (120 mg total) by mouth daily 09/10/2023 Active valsartan (DIOVAN) 320 mg tablet Take 1 tablet (320 mg total) by mouth daily 09/26/2023 Active hydrOXYzine (ATARAX) 50 mg tablet 12/12/2023 Active loratadine (Allergy Relief, loratadine,) 10 mg tablet Take 1 tablet by mouth once daily 30 tablet 5 07/22/2024 Active loteprednol (LOTEMAX) 0.5 % ophthalmic suspension INSTILL 1 DROP INTO RIGHT EYE THREE TIMES DAILY 07/08/2024 Active Trulance 3 mg tablet 09/01/2024 Active dexlansoprazole (DEXILANT) 60 mg capsule 10/01/2024 Active Cartia XT 180 mg 24 hr capsule Take 1 capsule (180 mg total) by mouth daily 11/28/2024 Active rOPINIRole (REQUIP) 1 mg tablet 11/28/2024 Active Active Problems Problem Noted Date Diagnosed Date Restrictive lung disease 12/02/2024 Colitis 09/05/2024 Assessment & Plan (09/05/2024 9:47 AM SAMPLE EXAMINER): Patient was seen in the ER February 2024 with lower abdominal pain associated with nausea, vomiting, and diarrhea. He was also reporting rectal bleeding. CT scan showed diffuse abdominal wall thickening and surrounding fat stranding of the transverse descending colon consistent with acute colitis, likely infectious. Patient was treated with antibiotics. Doing well, has mild constipation. -Schedule colonoscopy -The risks (risks of bleeding, infection, perforation requiring surgery, missed polyps/cancer, dental injury, aspiration pneumonia, anesthesia complications such as drug reaction and cardiopulmonary complications including rare chance of ), benefits, and alternatives of the planned procedure were explained to the patient who understands and consents to having procedure done. Dysphagia 09/05/2024 Assessment & Plan (09/05/2024 9:47 AM SAMPLE EXAMINER): Patient was having dysphagia, had an EGD a few days ago [facility]. No records available for review. -Obtain prior EGD records Family history of colon cancer 09/05/2024 Assessment & Plan (09/05/2024 9:48 AM SAMPLE EXAMINER): Maternal grandmother had colon cancer. Mother had polyps. Per patient last colonoscopy 5 years ago was normal. Constipation 09/05/2024 Assessment & Plan (09/05/2024 9:48 AM SAMPLE EXAMINER): Mild, chronic, intermittent. -High-fiber diet -MiraLax OTC p.r.n. 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 daily and famotidine 20 mg p.o. q.h.s.. -Continue omeprazole 20 mg p.o. daily and famotidine 20 mg p.o. q.h.s. -RECOMMENDATIONS given include: anti-reflux maneuvers, Avoid acidic foods like oranges and tomatoes., avoidance of spicy foods, avoid eating 3-4 hours before bed, elevation of the head of the bed, and weight loss Chronic left-sided low back pain with left-sided sciatica 12/01/2019 Left flank mass 07/07/2019 Diastolic dysfunction 02/13/2017 Impaired glucose tolerance 02/13/2017 Primary hypertension 11/21/2016 Posttraumatic stress disorder 11/21/2016 Cervical spondylosis with radiculopathy 12/22/19 14 Cervical disc herniation 12/22/2013 Chronic dyspnea Resolved Problems Problem Noted Date Diagnosed Date Resolved Date Internal hemorrhoids 12/02/2024 025 Restlessness 11/21/2016 10/08/2023 Encounters Date Type Department Care Team Description 12/02/2024 11:14 AM SAMPLE EXAMINER - 12/02/2024 11:59 PM SAMPLE EXAMINER Hospital Encounter [address] [address] Dyspnea on exertion Discharge Disposition: Discharge to home or self care 12/02/2024 10:00 AM SAMPLE EXAMINER Office Visit [facility] [address] [facility] 8th [place] [address] [place] [address] Dalila Francis NP Lower respiratory infection (Primary Dx); Dyspnea on exertion; Post-nasal drip; Immunization counseling 12/02/2024 8:57 AM SAMPLE EXAMINER - 12/02/2024 11:59 PM SAMPLE EXAMINER Hospital Encounter [facility] Formerly [facility] [address] [address] Restrictive lung disease Discharge Disposition: Discharge to home or self care 12/02/2024 8:43 AM SAMPLE EXAMINER - 12/02/2024 11:59 PM SAMPLE EXAMINER Hospital Encounter [facility] [address] [place] [id number] Restrictive lung disease Discharge Disposition: Discharge to home or self care 11/25/2024 Orders Only [facility] [address] [place] [address] Advanced Medicine 8th [place] [address] [place] [address] Dominick Lilly, RN Restrictive lung disease (Primary Dx) 11/10/2024 Telephone [facility] [address] [place] [address] Advanced Medicine 8th [place] [address] [place] [address] Dominick Lilly, RILEY 11/06/2024 4:08 PM SAMPLE EXAMINER - 11/06/2024 11:59 PM SAMPLE EXAMINER Hospital Encounter [facility] ([facility]) [address] [place] [address] Discharge Disposition: Discharge to home or self care 10/31/2024 Telephone [facility] 8th [place] [address] [place] [address] Dominick Lilly, RILEY 10/30/2024 10:31 AM SAMPLE EXAMINER - 10/30/2024 11:59 PM SAMPLE EXAMINER Hospital Encounter [facility]) [address] [place] [address] Dyspnea, unspecified type; Chronic dyspnea; Shortness of breath Discharge Disposition: Discharge to home or self care 10/27/2024 8:00 AM SAMPLE EXAMINER Office Visit [facility] [address] [facility] [address] [place] [address] [place] [address] Restrictive lung disease (Primary Dx); Dyspnea, unspecified type; Chronic pain syndrome; Diaphragmatic paralysis 10/27/2024 Orders Only [facility] [address] [facility] [address]th [place] [address] [place] [address] Dominick Lilly RN Dyspnea, unspecified type (Primary Dx); Chronic dyspnea; Shortness of breath from Last 3 Months Immunizations Immunization Administration Dates Next Due H1N1 All Forms 01/05/2010 Influenza, Quadrivalent, Priyanka l Culture-based MDCK, Preservative Free, Antibiotic Free, Intramuscular 08/06/2023 Influenza, Quadrivalent, Rec ombinant, Egg Free, Preservative Free, Intramuscular 07/27/2020,08/05/2019 Influenza, Quadrivalent, Spl it, Preservative Free, Intramuscular 08/08/2022,08/09/2021,08/02/2018,08/06,07/16/2014 Influenza, Trivalent, IM (MDV) 07/29/2013 Influenza, Trivalent, Preser vative Free, Intramuscular 07/27/2016 Influenza, Trivalent, Recomb inant, Egg Free, Preservative Free, Antibiotic Free, IM (FLUBLOK) 09/18/2024 Influenza, Unspecified 07/27/2020,2018,08/02/2018,08/06,07/27/2016,08/29/2015,07/16/2014 ,08/29/2013,07/29/2013,09/03/2012,110 05/2011,09/17/2010,08/25/2009, 8,08/30/2007,07/29/2006,08/31/2005 Moderna SARS-CoV-2 Monovalen t Vaccination (12+ YRS) 11/30/2020,11/24/2020 Pfizer SARS-CoV-2 Monovalent Vaccination (12+ Yrs) PURPLE 12/22/2020,11/24/2020 Td, Unspecified 07/11/2004 Tdap 04/15/2017 ZOSTER Recombinant 10/25/2020,07/08/2020 Surgical History Surgery Date Site/Laterality Comments BACK SURGERY cervical dissectomy Medical History Medical History Date Comments Hypertension Hyperlipidemia Internal hemorrhoids 12/02/2024 Family History Medical History Relation Name Comments Diabetes Brother Family history of diabetes mellitus - (Added by TW Conv) Diabetes Father Family history of diabetes mellitus - (Added by TW Conv) Diabetes Mother Family history of diabetes mellitus - (Added by TW Conv) Hypertension Mother Family history of hypertension - (Added by TW Conv) Colon cancer Other 1 Family history of colon cancer - (Added by TW Conv) Hypertension Other 2 Family history of hypertension - (Added by TW Conv) Diabetes Other 3 Family history of diabetes mellitus - (Added by TW Conv) Relation Name Status Comments Brother Father Mother Other 1 Other 2 Other 3 Social History Tobacco Use Types Packs/Day Years Used Date Smoking Tobacco: Never Smokeless Tobacco: Never Tobacco Cessation:Counseling Given: Not Answered PHQ-2 Answer Date Recorded PHQ-2 Total Score (If total score is 3 or more points, staff should administer the PHQ-9) 4 05/14/2023 Sex and Gender Information Value Date Recorded Sex Assigned at Not on file Legal Sex Male 4:19 AM SAMPLE EXAMINER Gender Identity Male 04/04/2023 4:30 PM CDT Sexual Orientation Garcia 04/04/2023 4: 30 PM CDT Obstetrics History Last Filed Vital Signs Vital Sign Reading Time Taken Comments Blood Pressure 134/90 12/02/2024 10:03 AM SAMPLE EXAMINER Pulse 98 12/02/2024 10:03 AM SAMPLE EXAMINER Temperature 35.6 C (96.1 F) 12/02/2024 10:03 AM SAMPLE EXAMINER Respiratory Rate 18 12/02/2024 10:03 AM SAMPLE EXAMINER Oxygen Saturation 98% 12/02/2024 10:03 AM SAMPLE EXAMINER Inhaled Oxygen Concentration - - Weight 112 kg (247 lb) 12/02/2024 10:03 AM SAMPLE EXAMINER Height 177.8 cm (5' 10 ) 12/02/2024 10:03 AM SAMPLE EXAMINER Body Mass Index 35.44 12/02/2024 10:03 AM SAMPLE EXAMINER Plan of Treatment Health Maintenance Due Date Last Done Comments Colon Cancer Screening-Colonoscopy 1970 Hepatitis C Screening 1970 Prostate Cancer Screening-PSA 1970 Hepatitis B Screening 01/15/1988 Regular Well Visit/Exam 18-64 01/15/1988 Depression Screening 05/14/2024 05/14/2023, 05/14/20 23 DTaP/Tdap/Td Vaccine (2 - Td or Tdap) 04/15/2027 04/15/2017, 07/11/2004 Zoster Vaccine Completed 10/25/2020, 07/08/2020 Covid-19 Vaccine Completed 09/18/2024, , 08/14/2022, Additional history exists Influenza Vaccine Completed 09/18/2024, , 08/08/2022, Additional history exists Pneumococcal vaccine <65 Aged Out No longer eligible based on patient's age to complete this topic Procedures Procedure Name Priority Date/Time Associated Diagnosis Comments RESPIRATORY PATHOGEN PANEL STAT 12/02/2024 2:00 PM SAMPLE EXAMINER Dyspnea on exertion PULMONARY FUNCTION TEST (PFT) Routine 12/02/2024 9:14 AM SAMPLE EXAMINER Restrictive lung disease XR CHEST PA LATERAL 2 VIEWS Schedule Routine, Read Routine (OP Routine) 12/02/2024 8:54 AM SAMPLE EXAMINER Restrictive lung disease CT BODY OUTSIDE REFERENCE Routine 11/06/2024 4:[address] CHEST WO CONTRAST Schedule Routine, Read Routine (OP Routine) 10/30/2024 10:45 AM SAMPLE EXAMINER Dyspnea, unspecified type Chronic dyspnea Shortness of breath from Last 3 Months Results * Respiratory pathogen panel Nasopharyngeal (12/02/2024 2:00 PM SAMPLE EXAMINER) Influenza A RNA Not Detected Not Detected Influenza B RNA Not Detected Not Detected [facility] RSV RNA Not Detected Not Detected [facility] COVID-19 RNA Not Detected Not Detected [facility] Coronavirus 229E RNA Not Detected Not Detected [facility] Coronavirus HKU1 RNA Not Detected Not Detected [facility] Coronavirus NL63 RNA Not Detected Not Detected [facility] Coronavirus OC43 RNA Not Detected Not Detected [facility] Adenovirus DNA Not Detected Not Detected [facility] Metapneumovirus RNA Not Detected Not Detected [facility] Rhinovirus/Enterov irus RNA Not Detected Not Detected [facility] Parainfluenza 1 RNA Not Detected Not Detected [facility] Parainfluenza 2 RNA Not Detected Not Detected [facility] Parainfluenza 3 RNA Not Detected Not Detected [facility] Parainfluenza 4 RNA Not Detected Not Detected [facility] B. pertussis DNA Not Detected Not Detected [facility] B. parapertussis DNA Not Detected Not Detected [facility] C. pneumoniae DNA Not Detected Not Detected [facility] M. pneumoniae DNA Not Detected Not Detected [facility] Nasopharyngeal 12/02/2024 2: 00 PM SAMPLE EXAMINER 12/02/2024 4:06 PM SAMPLE EXAMINER Narrative [facility] - 12/02/2024 6:01 PM SAMPLE EXAMINER Is the Patient experiencing symptoms consistent with COVID?->Unknown Surveillance testing for transplant patient?->No Interpretive Data The [employer] FilmArray Respiratory Panel (RP2.1) assay is a multiplexed real-time PCR based nucleic acid test capable of simultaneous qualitative detection and identification of multiple respiratory viral and bacterial nucleic acids, including SARS Coronavirus 2 (the causative agent of COVID-19). The following bacteria, viruses and virus subtypes can be identified using the FilmArray RP2.1 assay: Bordetella pertussis, Bordetella parapertussis, Chlamydia pneumoniae, Mycoplasma pneumoniae, Adenovirus, SARS Coronavirus 2, seasonal coronaviruses (Coronavirus HKU1, Coronavirus NL63, Coronavirus 229E, and Coronavirus OC43), Influenza A, Influenza A subtype H1, Influenza A subtype H3, Influenza A subtype 2009 H1, Influenza B, Metapneumovirus, Parainfluenza 1, Parainfluenza 2, Parainfluenza 3, Parainfluenza 4, RSV, Rhinovirus/Enterovirus. Due to the genetic similarity between human Rhinovirus and Enterovirus, the FilmArray RP2.1 assay cannot reliably differentiate them. Coronavirus OC43 may cross-react with some isolates of Coronavirus HKU1. A dual positive result may be due to cross-reactivity or may indicate a co- infection. The detection and identification of specific viral and bacterial nucleic acids from individuals exhibiting signs and symptoms of a respiratory infection aids in the diagnosis of respiratory infection if used in conjunction with other clinical and epidemiological information. The results of this test should not be used as the sole basis for diagnosis, treatment, or other management decisions. Negative results in the setting of a respiratory illness may be due to infection with pathogens that are not detected by this test. Positive results do not rule out infection/co-infection with other organisms. The agent(s) detected by the FilmArray RP2.1 may not be the definite cause of disease. Additional testing (lab, imaging, etc.) may be necessary when evaluating a patient with possible respiratory tract infection. The FilmArray RP2.1 assay has FDA clearance for testing of CHILLER OPERATOR swabs. The performance of additional specimen types has been assessed by the performing laboratory. The performance characteristics of this assay have been determined by [facility] Infectious Disease Laboratory. Current interpretive data was last revised on 22. Dalila Francis CHILLER OPERATOR LAB MICROBIOLOGY - GENERA L ORDERABLES Final Result [facility] Department [place] [address] * Pulmonary Function Test - (12/02/2024 9:14 AM SAMPLE EXAMINER) Pathologist [facility] FVC PRE 2.90 L [facility] FVC %PRE PRED 64 % [facility] FEV1 PRE 2.40 L [facility] FEV1 %PRE PRED 67 % [facility] FEV1/FVC PRE 82.8 % [facility] Anatomical Region Laterality Modality PFT 12/02/2024 9:07 AM SAMPLE EXAMINER Narrative 12/02/2024 9:39 PM SAMPLE EXAMINER PFT performed at:->[facility] Adult PFT Lab- [id number] Procedure:->Spirometry Pulmonary Function Test Interpretation SPIROMETRY: The FEV1 and FVC are reduced in a pattern suggestive of a restrictive abnormality. The inspiratory loop is appropriate for the expiratory flow abnormality. Impression: There is a moderate restrictive ventilatory defect. However, measurement of lung volumes is suggested to confirm this if clinically indicated. Compared with most recent study, there has been no significant interval change. The attending pulmonary physician certifies a physician presence in the [facility] during the administration of aerosolized bronchodilator. The attending pulmonary physician certifies that he/she has reviewed and interpreted the graphic and numerical data of this pulmonary function study and agrees with the written final report. The lower limit of normal for PaO2 and %HbO2 is age dependent. However, the [facility] Pulmonary Function Laboratory defines hypoxemia as a PaO2 <56 mm Hg or a %HbO2 <89%. Starting on October of 2024 the [facility] Pulmonary Function Laboratory utilizes race neutral GLI Global normative equations. Huey Morales MD PFT ORDERABLES Final Res ult * X-ray chest 2 views (12/02/2024 8:54 AM SAMPLE EXAMINER) Anatomical Region Laterality Modality Body, Chest N/A Computed Radiogr aphy 12/02/2024 9:32 AM SAMPLE EXAMINER Impressions 12/02/2024 9:32 AM SAMPLE EXAMINER Comparison is made to radiograph dated 04/09/2023. Hyperexpanded right lung. Elevation of the left hemidiaphragm with associated volume loss in the left lung, unchanged from the prior examination. No new consolidation. No pleural effusions. No pneumothorax. ACDF. Electronically signed by: Norman Jules M.D. Narrative 12/02/2024 9:32 AM SAMPLE EXAMINER EXAMINATION: 2 view chest radiograph Procedure Note Norman Jules MD - 12/02/2024 EXAMINATION: 2 view chest radiograph IMPRESSION: Comparison is made to radiograph dated 04/09/2023. Hyperexpanded right lung. Elevation of the left hemidiaphragm with associated volume loss in the left lung, unchanged from the prior examination. No new consolidation. No pleural effusions. No pneumothorax. ACDF. Electronically signed by: Norman Jules M.D. Huey Morales MD IMG XR PROCEDURES Final R esult * CT Body Outside Reference (11/06/2024 4:08 PM SAMPLE EXAMINER) Impressions [facility] - 11/06/2024 4:08 PM SAMPLE EXAMINER These images are for Reference purposes only and have not been reviewed by [facility] Radiology. There will be no report generated by a [facility] Radiologist. Narrative [facility] - 11/06/2024 4:08 PM SAMPLE EXAMINER EXAMINATION: Images For Reference Purposes Only us Huey Morales MD IMG CT PROCEDURES Final R esult [facility] * CT chest without contrast (10/30/2024 10:45 AM SAMPLE EXAMINER) Anatomical Region Laterality Modality Body N/A Computed Tomogra phy 10/30/2024 10:5 0 AM SAMPLE EXAMINER Impressions 10/30/2024 10:50 AM SAMPLE EXAMINER 1. Interval development of right basilar patchy groundglass opacities. May represent the sequela of interval aspiration. 2. Changes of fundoplication the left hemidiaphragm. Electronically signed by: José Manuel Hough M.D. Narrative 10/30/2024 10:50 AM SAMPLE EXAMINER EXAMINATION: CT CHEST WITHOUT INTRAVENOUS CONTRAST TECHNIQUE: Standard noncontrast CT of the chest was performed. HISTORY: Chronic dyspnea. FINDINGS: Comparison is made to prior study of 08/10/2023 Again seen are changes of left hemidiaphragm fundoplication with elevation of left hemidiaphragm. Left basilar atelectasis is noted. There is no interstitial lung disease. A tiny elliptical lymph node is seen at slice position 2.3. Some patchy groundglass opacities seen in the right base which may represent an interval aspiration. There is no pneumothorax or pleural effusion. No supraclavicular, axillary or mediastinal lymphadenopathy. Patient is status post prior neck surgery and spinal fusion changes are seen in the lower cervical spine. Incidentally noted is mediastinal lipomatosis. The heart size is at upper limit of normal. There is no pericardial effusion. Images of the upper abdomen show some mild fatty change within the liver. The adrenal glands are normal. The bone windows do not demonstrate any osseous lesion. Procedure Note José Manuel Hough MD - 10/30/2024 EXAMINATION: CT CHEST WITHOUT INTRAVENOUS CONTRAST TECHNIQUE: Standard noncontrast CT of the chest was performed. HISTORY: Chronic dyspnea. FINDINGS: Comparison is made to prior study of 08/10/2023 Again seen are changes of left hemidiaphragm fundoplication with elevation of left hemidiaphragm. Left basilar atelectasis is noted. There is no interstitial lung disease. A tiny elliptical lymph node is seen at slice position 2.3. Some patchy groundglass opacities seen in the right base which may represent an interval aspiration. There is no pneumothorax or pleural effusion. No supraclavicular, axillary or mediastinal lymphadenopathy. Patient is status post prior neck surgery and spinal fusion changes are seen in the lower cervical spine. Incidentally noted is mediastinal lipomatosis. The heart size is at upper limit of normal. There is no pericardial effusion. Images of the upper abdomen show some mild fatty change within the liver. The adrenal glands are normal. The bone windows do not demonstrate any osseous lesion. IMPRESSION: 1. Interval development of right basilar patchy groundglass opacities. May represent the sequela of interval aspiration. 2. Changes of fundoplication the left hemidiaphragm. Electronically signed by: José Manuel Hough M.D. Huey Morales MD IMG CT PROCEDURES Final R esult from Last 3 Months Insurance [facility] PREFERRED MAIL HANDLERS [facility] Care Teams Transcript Evaluator Relationship Specialty Start Date End Date Saeed Carvalho MD [address] [facility] [address] [place] [address] PCP - General Family Medicine 12/08/21 Freeman Howard MD [address] [address] Pulmonary Disease 01/23/23 Huey Morales MD [address] [facility] [phone] [place] [address] Consulting Physician Pulmonary Disease 12/02/24
--- OUTSIDE RECORDS SUMMARY | 2025-01-22 00:58 | XMS_ITS | Encounter Summary ---
Author Organization [facility] Health Address [address] [place] [address] Care Team Providers Care Boat Cleaning Supervisor Name Role Phone Saeed Carvalho MD Primary Care Provider [phone] Berny Borja MD Unavailable [phone] Encounter Details Date Type Department Care Team (Late st Contact Info) Description 07/20/2020 [facility] Out[facility] Visit [facility]TERNAL [facility] DEPT Unknown, Provider Social History Tobacco Use Types Packs/Day Years Used Date Smoking Tobacco: Never Smokeless Tobacco: Never Alcohol Use Standard Drinks/Week Comments Yes 2 (1 standard drink = 0.6 oz pur e alcohol) Sex and Gender Information Value Date Recorded Sex Assigned at Male 07/21/2021 2:33 PM CDT Gender Identity Male 07/21/2021 2:33 PM CDT Sexual Orientation Garcia 07/21/2021 2 :33 PM CDT documented as of this encounter Functional Status Functional Status Response Date of Assess ment Is person deaf or have serious hearing difficult y? No 12/01/2019 Is person blind or have serious difficulty seein g? No 12/01/2019 Does person have serious dif ficulty walking/climbing stairs? No 12/01/2019 Does person have difficulty dressing/bathing? No 12/01/2019 Does person have difficulty doing errands alone? No 12/01/2019 Cognitive Status Response Date of Assessm ent Does person have difficulty concentrating/remembering/making decisions? No 12/01/2019 documented as of this encounter Plan of Treatment Not on file documented as of this encounter Visit Diagnoses Not on filedocumented in this encounter Care Teams Boat Cleaning Supervisor Relationship Specialty Start Date End Date Saeed Carvalho MD [address] [facility] [address] [place] [address] PCP - General Family Medicine 11/15/17 [place] [address] [facility] [address] [place] [address] Physical Medicine and Rehabilitation 01/24/22 documented as of this encounter
--- OUTSIDE RECORDS SUMMARY | 2025-01-22 00:58 | XMS_ITS | Clinical Summary ---
Author Organization [facility] Address [address] [place] [address] Care Team Providers Care Optometrist Owner Name Role Phone Saeed Carvalho MD Primary Care Provider [phone] Allergies Active Allergy Reactions Criticality Noted Date Comments Sulfamethoxazole-Trimethoprim Throat swelling High 0 06/18/2019 Buspirone Angioedema High 06/05/2013 Ciprofloxacin Anaphylaxis High 09/11/2019 Iodine Itching High 02/06/2023 Gemfibrozil Other (see comment) High 06/19/2018 Ferrous Sulfate Anaphylaxis High 06/18/2019 Methocarbamol Anaphylaxis,Swelling High 11/19/2017 Statins Other (see comment),Myalgias High 04/16/2014 Sulfamethoxazole Angioedema High 02/21/2016 Topiramate Unknown 05/02/2019 Tramadol Angioedema High 05/03/2018 Trimethoprim Angioedema High 02/21/2016 Medications fenofibrate 160 MG tablet Take 1 tablet (160 mg total) by mouth daily. Active lisinopril 40 MG tablet Take 1 tablet (40 mg total) by mouth daily. Active paroxetine 40 MG tablet Take 1 tablet (40 mg total) by mouth 2 (two) times a day. Active pantoprazole EC 40 MG tablet Take 1 tablet (40 mg total) by mouth 2 (two) times a day. Active propranolol 20 MG tablet Take 1 tablet (20 mg total) by mouth 2 (two) times daily. Active clonazePAM 0.5 MG tablet Take 2 tablets (1 mg total) by mouth every evening. Active ropinirole 0.25 MG tablet Take 2 tablets (0.5 mg total) by mouth daily. Active ezetimibe 10 MG tablet 1 Active vitamin D3, cholecalciferol , 1.25 MG (30957 UT) capsule 1 Active cloNIDine 0.1 MG tablet Take 1 tablet (0.1 mg total) by mouth 2 (two) times daily. 1 Active albuterol sulfate HFA 108 (90 Base) MCG/ACT inhaler 2 Active fluticasone-osiris meterol (ADVAIR HFA) 230-21 MCG/ACT inhalerIndicati ons:Dyspnea on exertion Inhale 2 puffs into the lungs 2 (two) times daily. Rinse and spit after use 36 g 3 2 Active Additional Information Patient not taking.Reported on 01/16/2023 montelukast (SINGULAIR) 10 MG tabletIndicatio ns:Seasonal allergies Take 1 tablet (10 mg total) by mouth nightly at bedtime. 90 tablet 3 3 Active fluticasone propionate (FLONASE) 50 MCG/ACT nasal sprayIndication s:Seasonal allergies 1 spray by Nasal route daily. 150 mL 3 3 Active Active Problems Problem Noted Date Diagnosed Date Cervicalgia 04/25/2021 Dysthymic disorder 04/19/2021 Gastroesophageal reflux disease 04/19/2021 Essential hypertension 04/19/2021 Hypersomnia with sleep apnea 04/19/2021 Idiopathic urticaria 04/19/2021 Chronic left-sided low back pain with left-sided sciatica 12/01/2019 Left flank mass 07/07/2019 Insomnia 04/09/2019 Nocturia 04/09/2019 Diastolic dysfunction 02/13/2017 Impaired glucose tolerance 02/13/2017 B12 deficiency 12/03/2016 Iron deficiency 12/03/2016 Vitamin D deficiency 12/03/2016 Chest pain 11/21/2016 Hyperlipidemia 11/21/2016 Restlessness 11/21/2016 PTSD (post-traumatic stress disorder) 11/21/2016 Obesity 11/21/2016 Muscle spasm of right shoulder 03/19/2014 Cervical spondylosis with radiculopathy 12/22/19 14 Cervical disc herniation 12/22/2013 Resolved Problems Problem Noted Date Diagnosed Date Resolved Date Encounter for health-related screening 12/22/2013 12/05/2021 Immunizations Name Administration Dates Next Due H1N1 2009 Influenza Vaccine 01/05/2010 Influenza (Generic) 07/27/2020,08/05/2019,2014 Influenza Adult (Generic) 08/02/2018,06/2017,07/27/2016, 014,07/29/2013 PFIZER COVID-19 (ORIGINAL FORMULATION, PURPLE CAP) mRNA, LNP-S, PF, 30 MCG/0.3 ML DOSE 12/22/2020,11/24/2020 Shingrix 07/08/2020 Tdap (Generic) 04/15/2017 Family History Medical History Relation Comments Diabetes Brother Diabetes Father Diabetes Mother Relation Status Comments Brother Father Mother Social History Tobacco Use Types Packs/Day Years Used Date Smoking Tobacco: Never Smokeless Tobacco: Never Tobacco Cessation:Counseling Given: Yes Comments:Never Smoked Alcohol Use Standard Drinks/Week Comments [...] CDT Gender Identity Male 11/28/2021 4:54 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 Sexual Orientation Garcia 11/28/2021 4: 54 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 Last Filed Vital Signs Vital Sign Reading Time Taken Comments Blood Pressure 133/86 01/16/2023 9:23 AM CDT Pulse 87 01/16/2023 9:23 AM CDT Temperature 36.6 C (97.8 F) 01/16/2023 9:23 AM CDT Respiratory Rate 12 01/16/2023 9:23 AM CDT Oxygen Saturation 98% 01/16/2023 9:23 AM CDT Inhaled Oxygen Concentration - - Weight 110.2 kg (243 lb) 01/16/2023 9:23 AM CDT Height 180.3 cm (5' 11 ) 01/16/2023 9:23 AM CDT Body Mass Index 33.89 01/16/2023 9:23 AM CDT Plan of Treatment Health Maintenance Due Date Last Done Comments Colorectal Cancer Screening Colonoscopy (10 Years) 1970 Annual Physical 1973 Hepatitis C 01/15/1988 Hepatitis B Vaccines (1 of 3 - 19+ 3-dose series) 1989 COVID-19 Vaccine (4 - 2023- season) 2024 12/22/2020, 11/30/2020, 11/24/2020, Additional history exists Influenza Adult (#1) 2024 08/06/2023, 08/08/2022, 08/09/2021, Additional history exists PHQ-2 (Physician [place]) 10/29/2024 01/16/2023 DTaP, Tdap and Td Vaccines (2 - Td or Tdap) 04/15/2027 04/15/2017, 07/11/2004 Zoster Vaccines Completed 10/25/2020, 07/08/2020 Meningococcal B Vaccine Aged Out No l onger eligible based on patient's age to complete this topic Meningococcal Vaccine Aged Out No courtney radha eligible based on patient's age to complete this topic Pneumococcal Vaccine: Pediatrics (0 to 5 Years) and At-Risk Patients (6 to 64 Years) Aged Out No longer eligible based on patient's age to complete this topic RSV Immunizations Under 20 Months Aged Out No longer eligible based on patient's age to complete this topic Insurance [employer] Care Teams Optometrist Owner Relationship Specialty Start Date End Date Saeed Carvalho MD [address] [place] [address] PCP - General 07/15/14
--- OUTSIDE RECORDS SUMMARY | 2025-01-22 00:58 | XMS_ITS | Encounter Summary ---
Author Organization [facility] Address [address] [place] [address] Care Team Providers Care Department Secretary Name Role Phone Saeed Carvalho MD Primary Care Provider [phone] Encounter Details Date Type Department Care Team (Late st Contact Info) Description 02/08/2023 Community Pharmacyt Message Enc [facility] Medical [facility] Multispecialty Care - [facility] [address] [facility] [place] [id number] Freeman Howard MD [address] [facility] [address] [place] [address] Echocardiogram Social History Tobacco Use Types Packs/Day Years [...] CDT Gender Identity Male 11/28/2021 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 No / Unsure 02/07/2023 12:32 PM CDT documented as of this encounter Plan of Treatment Not on file documented as of this encounter Visit Diagnoses Not on filedocumented in this encounter Additional Health Concerns Assessment Noted Time PHQ-9 Depression Total Score: 0 11/29/19 22 2:07 PM STATISTICAL MACHINE MECHANIC documented as of this encounter Care Teams Department Secretary Relationship Specialty Start Date End Date Saeed Carvalho MD [address] [facility] [address] [place] [address] PCP - General 07/15/14 documented as of this encounter
--- OUTSIDE RECORDS SUMMARY | 2025-01-22 00:58 | XMS_ITS | Encounter Summary ---
Author Organization [facility] Address [address] [place] [address] Care Team Providers Care Color Adviser Name Role Phone Saeed Carvalho MD Primary Care Provider [phone] Encounter Details Date Type Department Care Team (Late st Contact Info) Description 02/06/[address] [facility] Medical [facility] Multispecialty Care - [facility] [address] [facility] [place] [id number] Freeman Howard MD [address] [facility] [address] [place] [address] CAT SCAN Social History Tobacco Use Types Packs/Day Years [...] CDT Gender Identity Male 11/28/2021 4:54 AM TRICK RODEO RIDER Sexual Orientation Garcia 11/28/2021 4: 54 AM TRICK RODEO RIDER COVID-19 Exposure Response Date Recorded In the [...] Total Score: 0 11/29/19 22 2:07 PM TRICK RODEO RIDER documented as of this encounter Care Teams Color Adviser Relationship Specialty Start Date End Date Saeed Carvalho MD [address] [facility] [address] [place] [address] PCP - General 07/15/14 documented as of this encounter
--- OUTSIDE RECORDS SUMMARY | 2025-01-22 00:58 | XMS_ITS | Encounter Summary ---
Author Organization [facility] Health Address [address] [place] [address] Care Team Providers Care Sensor Operator Name Role Phone Saeed Carvalho MD Primary Care Provider [phone] Berny Borja MD Unavailable [phone] Encounter Details Date Type Department Care Team (Late st Contact Info) Description 04/07/2021 [facility] Outpatient Visit EXTERNAL NON-[facility] DEPT Unknown, Provider [...] Orientation Garcia 07/21/2021 2 :33 PM CDT COVID-19 Exposure Response Date Recorded In the last month, have you been in contact with someone who was confirmed or suspected to have Coronavirus / COVID-19? No / Unsure 03/25/2021 9:49 AM CDT documented as of this encounter Functional [...] on filedocumented in this encounter Care Teams Sensor Operator Relationship Specialty Start Date End Date Saeed Carvalho MD [address] [facility] [address] [place] [address] PCP - General Family Medicine 11/15/17 [place] [address] [facility] [address] [place] [address] Physical Medicine and Rehabilitation 01/24/22 documented as of this encounter
--- OUTSIDE RECORDS SUMMARY | 2025-01-22 00:58 | XMS_ITS | Encounter Summary ---
Author Organization [facility] Health Address [address] [address] Care Team Providers Care Admitting Interviewer Name Role Phone Saeed Carvalho MD Primary Care Provider [phone] Berny Borja MD Unavailable [phone] Encounter Details Date Type Department Care Team (Late st Contact Info) Description 05/18/2020 [facility] Unknown, Provider [...] on filedocumented in this encounter Care Teams Admitting Interviewer Relationship Specialty Start Date End Date Saeed Carvalho MD [address] [facility] [address] [place] [address] PCP - General Family Medicine 11/15/17 [place] [address] [facility] [address] [place] [address] Physical Medicine and Rehabilitation 01/24/22 documented as of this encounter
--- OUTSIDE RECORDS SUMMARY | 2025-01-22 00:58 | XMS_ITS | Encounter Summary ---
Author Organization [facility] Address [address] [place] [address] Care Team Providers Care Shellfish Bed Worker Name Role Phone Saeed Carvalho MD Primary Care Provider [phone] Encounter Details Date Type Department Care Team (Latest Contact Info) Description 09/03/2018 Abstract [facility] Medical [facility] , Barrera Thomson MD Social History Tobacco Use Types Packs/Day Years Used Date Smoking Tobacco: Never Assessed Sex and Gender Information Value Date Recorded Sex Assigned at Not on file Legal Sex Male 6:56 PM CDT Gender Identity Male 11/28/2021 4:54 AM HEAD ORTHOPEDIC TEAM PHYSICIAN Sexual Orientation Garcia 11/28/2021 4: 54 AM HEAD ORTHOPEDIC TEAM PHYSICIAN documented as of this encounter Plan of Treatment Not on file documented as of this encounter Visit Diagnoses Not on filedocumented in this encounter Care Teams Shellfish Bed Worker Relationship Specialty Start Date End Date Saeed Carvalho MD [address] [place] [address] PCP - General 07/15/14 documented as of this encounter
--- OUTSIDE RECORDS SUMMARY | 2025-01-22 00:59 | XMS_ITS | Encounter Summary ---
Author Organization [facility] Address [address] [place] [address] Phone Care Team Providers Care Heat Engineering Teacher Name Role Phone Saeed Carvalho MD Primary Care Provider Freeman Howard MD Unavailable [phone] Huey Morales MD Unavailable Encounter Details Date Type Department Care Team (Latest Contact Info) Description 05/14/2023 Orders Only [facility] Scanning, Provider Social History Tobacco Use Types Packs/Day Years Used Date Smoking Tobacco: Never Smokeless Tobacco: Never PHQ-2 Answer Date Recorded PHQ-2 Total Score (If total score is 3 or more points, staff should administer the PHQ-9) 4 05/14/2023 Sex and Gender Information Value Date Recorded Sex Assigned at Not on file Legal Sex Male 4:19 AM SENIOR HRIS ANALYST Gender Identity Male 04/04/2023 4:30 PM CDT Sexual Orientation Garcia 04/04/2023 4: 30 PM CDT documented as of this encounter Plan of Treatment Not on file documented as of this encounter Procedures Procedure Name Priority Date/Time Associated Diagnosis Comments PULMONARY - RESULT SCAN 05/14/2023 documented in this encounter Results * PULMONARY - RESULT SCAN (05/14/2023) Anatomical Region Laterality Modality Other us Provider Scanning Final Result documented in this encounter Visit Diagnoses Not on filedocumented in this encounter Additional Health Concerns Infection Onset Date Last Indicated Resolved Time COVID: Suspected 12/02/2024 12/02/2024 12/02/2024 6:02 PM SENIOR HRIS ANALYST documented as of this encounter Care Teams Heat Engineering Teacher Relationship Specialty Start Date End Date Saeed Carvalho MD [address] [place] [address] PCP - General Family Medicine 12/08/21 Freeman Howard MD [address] [facility] [address] [place] [address] Pulmonary Disease 01/23/23 Huey Morales MD [facility] [address] [facility] [phone] [place] [address] Consulting Physician Pulmonary Disease 12/02/24 documented as of this encounter
--- OUTSIDE RECORDS SUMMARY | 2025-01-22 00:59 | XMS_ITS | Encounter Summary ---
Author Organization [facility] Health Address [address] [place] [address] Care Team Providers Care Stitcher Special Machine Name Role Phone Saeed Carvalho MD Primary Care Provider [phone] Berny Borja MD Unavailable Encounter Details Date Type Department Care Team (Late st Contact Info) Description 11/21/2019 [facility] Unknown, [...] on filedocumented in this encounter Care Teams Stitcher Special Machine Relationship Specialty Start Date End Date Saeed Carvalho MD [address] [facility] [address] [place] [address] PCP - General Family Medicine 11/15/17 [place] [address] [address] [address] Physical Medicine and Rehabilitation 01/24/22 documented as of this encounter
--- OUTSIDE RECORDS SUMMARY | 2025-01-22 00:59 | XMS_ITS | CONTINUITY OF CARE DOCUMENT ---
Author Name arunser, carey Address Unknown Organization [facility] Address [address] [place] [address] Phone [phone] Care Team Providers Care Heavy Media Operator Name Role Phone Aurora GRAY, Amilcar Unavailable EVONNE MEZA MD Unavailable EVONNE MEZA MD Unavailable PROBLEMS Condition Status Date Provider Notes Hypertriglyceridemia active Amilcar Peoples IRON DEFICIENCY active Amilcar Simon MD B12 deficiency active Amilcar Simon MD Vitamin D deficiency active Amilcar Peoples HTN essential;neg dupelx active Amilcar monet MD Hyperlipidemia active Amilcar Simon MD PTSD active Amilcar Simon MD GERD active Amilcar Simon MD restless leg syndrome active Amilcar Simon MD PVC's completed - Amilcar Simon MD NEG TSH Obesity active Amilcar Simon MD Screening active Amilcar Simon MD r/o SLEEP APNEA;neg study per pt completed - Amilcar Simon MD PREDIABETES active Amilcar Simon MD Diastolic dysfunction active Amilcar Simon MD Insomnia active Amilcar Simon MD Nocturia active Amilcar Simon MD ENCOUNTERS Date Type Provider Location Encounter Diag nosis - In-person encounter Office Visit Amilcar Simon MD [place] [facility] - In-person encounter Office Visit Amilcar Simon MD [place] [facility] HTN essential;neg dupelxPVC's - In-person encounter Office Visit Amilcar Simon MD [place] [facility] PTSDr/o SLEEP APNEA;neg study per ptInsomniaNocturia - In-person encounter Office Visit Amilcar Simon MD [place] [facility] Screening - In-person encounter Office Visit Amilcar Simon MD [place] [facility] PREDIABETESDiastolic dysfunction - In-person encounter Office Visit Amilcar Simon MD [facility] HTN essential;neg dupelxHyperlipidemiaPTSDGERDrestless leg syndromePVC'sObesityScreeningr/o SLEEP APNEA;neg study per pt VITAL SIGNS Date Observation Value Provider Body Mass Index (Ratio) 33.47 kg/m2 Trey Simon MD blood pressure, diastolic 106 mm[Hg] Cy blair Christiansen blood pressure, systolic 147 mm[Hg] Shanna kylah Christiansen respiratory rate E&M 16 /min Galina Christiansen pulse rate 82 /min Galina velasquez oxygen saturation, oximetry 98 % Galina Christiansen weight E&M 240 [lb_av] Galina Paula velasquez blood pressure, cuff size regular Cy blair Christiansen height E&M 71 [in_i] Galina Campbel l temperature site temporal Hilaria Tank sley temperature E&M 95.5 [degF] Hialria Tanks jamar Body Mass Index (Ratio) 33.47 kg/m2 Trey Simon MD blood pressure, cuff size regular Cy blair Christiansen blood pressure, diastolic 80 mm[Hg] Cy blair Christiansen blood pressure, systolic 130 mm[Hg] Shanna Christiansen oxygen saturation, oximetry 98 % Galina Christiansen respiratory rate E&M 16 /min Galinakylah Christiansen pulse rate 80 /min Galinakylah Brysonbel l weight E&M 240 [lb_av] Galina Braydonbel l height E&M 71 [in_i] Galina Braydonbel l Body Mass Index (Ratio) 33.47 kg/m2 Trey Simon MD blood pressure, cuff size regular Cy blair Christiansen blood pressure, diastolic 70 mm[Hg] Cy blair Christiansen blood pressure, systolic 128 mm[Hg] Shanna Christiansen oxygen saturation, oximetry 99 % Galina Christiansen respiratory rate E&M 16 /min Galina Christiansen pulse rate 79 /min Galina Brysonbel ron weight E&M 240 [lb_av] Galina Braydonbel l height E&M 71 [in_i] Galina Brysonbel l Body Mass Index (Ratio) 34.17 kg/m2 Trey Simon MD oxygen saturation, oximetry 98 % Galina Christiansen respiratory rate E&M 18 /min Galina Christiansen pulse rate 85 /min Galina velasquez blood pressure, cuff size regular Cy blair Christiansen blood pressure, diastolic 80 mm[Hg] Cy blair Christiansen blood pressure, systolic 124 mm[Hg] Shanna Christiansen weight E&M 245 [lb_av] Galina Braydonbel l height E&M 71 [in_i] Galina Braydonbel l Body Mass Index (Ratio) 33.33 kg/m2 Trey Simon MD blood pressure, cuff size regular Ke rri Emersonueneshyam blood pressure, diastolic 101 mm[Hg] Ke rri Emersonuenenfthalia blood pressure, systolic 147 mm[Hg] Della Suesperanzadarek oxygen saturation, oximetry 98 % Radha Suesperanzadarek respiratory rate E&M 16 /min Radha avilesesperanzadarek pulse rate 68 /min Radha Llamas [facility] weight E&M 239 [lb_av] Radha Llamas [facility] height E&M 71 [in_i] Radha Llamas [facility] blood pressure, diastolic 88 mm[Hg] Be tsy Suero blood pressure, systolic 142 mm[Hg] Bet sy Suero Body Mass Index (Ratio) 32.35 kg/m2 [facility] RN blood pressure, cuff size regular duane [facility] RN blood pressure, diastolic 90 mm[Hg] duane [facility] RN blood pressure, systolic 140 mm[Hg] [facility] RN oxygen saturation, oximetry 99 % Rama Demecs RN respiratory rate E&M 16 /min Rama Demecs RN pulse rate 89 /min Tyler Demecs R N weight E&M 232 [lb_av] Rama Demecs R N Body Mass Index (Ratio) 32.07 kg/m2 Trey Simon MD blood pressure, resting Yes [place] blood pressure, diastolic 90 mm[Hg] [place] blood pressure, systolic 120 mm[Hg] [place] oxygen saturation, oximetry 98 % Leighaxochilt Albarado respiratory rate E&M 16 /min Leigha Rahat [place] pulse rate 110 /min Leigha Washing[place] n weight E&M 230 [lb_av] Leigha [place] height E&M 71 [in_i] Leigha Washingto n ALLERGIES Allergy Name Onset Date Reaction Criticality Status TOPAMAX Low Criticality active LOPID High Criticality active CRESTOR High Criticality active FERAHEME Low Criticality active STATINS myalgias myalgias Low Criticality ac tive SIMVASTATIN muscle weakness t ongue swelling o [place]a heats Low Criticality active BACTRIM pt ended up in the ER Low Criticalit y active RESULTS Date Observation Value Provider Reference Range Interpretation Location 9 ferritin, serum 201 ng/mL [facility] 30-400 9 B-12, serum 281 pg/mL [facility] 232-1245 9 iron saturation percent, serum 23 % [facility] 15-55 9 iron, serum 122 ug/dL [facility] 38-169 9 iron binding capacity, unsaturated 405 ug/dL [facility] 111-343 High 9 iron binding capacity, total 527 ug/dL [facility] 250-450 High 9 lipoprotein, beta, serum, point, quantitative, calculated 163 mg/dL [facility] 0-99 High 9 very low density lipoproteins 31 mg/dL [facility] 5-40 9 HDL cholesterol, serum 43 mg/dL [facility] >39 9 triglyceride, serum, random 155 mg/dL [facility] 0-149 High 9 cholesterol, serum 237 mg/dL [facility] 100-199 High 9 hemoglobin A1C, blood, as % of total hemoglobin 5.9 % [facility] 4.8-5.6 High 9 prostate specific antigen (PSA) complex 0.3 ng/mL [facility] 0.0-3.6 8 iron saturation percent, serum 18 % [facility] 15-55 8 iron, serum 100 ug/dL [facility] 38-169 8 iron binding capacity, unsaturated 466 ug/dL [facility] 111-343 High 8 iron binding capacity, total 566 ug/dL [facility] 250-450 Critical high 8 ferritin, serum 283 ng/mL [facility] 30-400 8 hemoglobin A1C, blood, as % of total hemoglobin 5.9 % [facility] 4.8-5.6 High 8 lipoprotein, beta, serum, point, quantitative, calculated 180 mg/dL [facility] 0-99 High 8 very low density lipoproteins 29 mg/dL [facility] 5-40 8 HDL cholesterol, serum 47 mg/dL [facility] >39 8 triglyceride, serum, random 144 mg/dL [facility] 0-149 8 cholesterol, serum 256 mg/dL [facility] 100-199 High 8 basophil count, absolute 0.0 x10E3/uL [facility] 0.0-0.2 8 Eosinophil Absolute Count 0.0 X10E3/UL [facility] 0.0-0.4 8 monocyte count, blood, automated 0.4 X10E3/UL [facility] 0.1-0.9 8 lymphocyte count, blood, automated 1.8 X10E3/UL [facility] 0.7-3.1 8 Absolute Neutrophils 4.8 X10E3/UL [facility] 1.4-7.0 8 basophils as percent of blood leukocytes 0 % [facility] Not Estab. 8 eosinophils as percent of blood leukocytes 0 % [facility] Not Estab. 8 monocytes as percent of blood leukocytes 6 % [facility] Not Estab. 8 lymphocytes as percent of blood leukocytes 25 % [facility] Not Estab. 8 neutrophils as percent of blood leukocytes 69 % [facility] Not Estab. 8 platelet count 326 X10E3/UL [facility] [phone]/06/1 8 red blood cell distribution width 13.1 % [facility] 12.3-15.4 8 mean corpuscular hemoglobin concentration, RBC 34.3 G/DL [facility] 31.5-35.7 8 mean corpuscular hemoglobin, RBC 29.3 pg [facility] 26.6-33.0 8 mean corpuscular volume, RBC 85 fL [facility] 79-97 8 hematocrit, blood 43.7 % [facility] 37.5-51.0 8 hemoglobin, blood 15.0 g/dL [facility] 13.0-17.7 8 erythrocyte (RBC) count 5.12 X10E6/UL [facility] 4.14-5.80 8 leukocyte count, blood 7.1 X10E3/UL [facility] 3.4-10.8 8 alanine aminotransferase (SGPT), serum 17 1/L [facility] 0-44 8 aspartate aminotransferase (SGOT), serum 14 1/L [facility] 0-40 8 alkaline phosphatase, serum 58 1/L [facility] 39-117 8 bilirubin, serum, total 0.5 mg/dL [facility] 0.0-1.2 8 albumin/globulin ratio, serum 2.0 [facility] 1.2-2.2 8 globulin, serum 2.5 [facility] 1.5-4.5 8 albumin, serum 4.9 g/dL [facility] 3.5-5.5 8 protein, total, serum 7.4 g/dL [facility] 6.0-8.5 8 calcium, serum 9.9 mg/dL [facility] 8.7-10.2 8 carbon dioxide, venous blood 23 mmol/L [facility] 20-29 8 chloride, serum 101 mmol/L [facility] 96-106 8 potassium, serum 5.0 mmol/L [facility] 3.5-5.2 8 sodium, serum 140 mmol/L [facility] 937-343 7366/06/1 8 urea nitrogen/creatinine ratio, serum 12 [facility] 9-20 8 eGFR if 60 mL/min/{1 .73_m2} [facility] >59 8 eGFR if not 52 mL/min/{1 .73_m2} [facility] >59 Low 8 creatinine, serum 1.55 mg/dL [facility] 0.76-1.27 High 8 urea nitrogen, blood 18 mg/dL [facility] 6-24 8 blood glucose, random 94 mg/dL [facility] 65-99 1 ferritin, serum 184 ng/mL [facility] 30-400 1 B-12, serum 204 pg/mL [facility] 211-946 Low 1 pro brain natriuretic peptide 43 pg/mL [facility] 0-121 1 c-reactive protein, quantitative, serum 8.30 mg/L [facility] 0.00-3.00 High 1 iron saturation percent, serum 20 % [facility] 15-55 1 iron, serum 94 ug/dL [facility] 38-169 1 iron binding capacity, unsaturated 381 ug/dL [facility] 111-343 High 1 iron binding capacity, total 475 ug/dL [facility] 250-450 High 1 free thyroxine index 2.6 [facility] 1.2-4.9 1 triiodothyronine resin uptake 31 % [facility] 24-39 1 thyroxine, serum, total 8.5 ug/dL [facility] 4.5-12.0 1 thyroid stimulating hormone, serum 1.160 u[IU]/mL [facility] 0.450-4.500 1 lipoprotein, beta, serum, point, quantitative, calculated 131 mg/dL [facility] 0-99 High 1 very low density lipoproteins 32 mg/dL [facility] 5-40 1 HDL cholesterol, serum 47 mg/dL [facility] >39 1 triglyceride, serum, random 158 mg/dL [facility] 0-149 High 1 cholesterol, serum 210 mg/dL [facility] 100-199 High 1 basophil count, absolute 0.0 x10E3/uL [facility] 0.0-0.2 1 Eosinophil Absolute Count 0.0 X10E3/UL [facility] 0.0-0.4 1 monocyte count, blood, automated 0.4 X10E3/UL [facility] 0.1-0.9 1 lymphocyte count, blood, automated 1.3 X10E3/UL [facility] 0.7-3.1 1 Absolute Neutrophils 5.6 X10E3/UL [facility] 1.4-7.0 1 basophils as percent of blood leukocytes 0 % [facility] 1 eosinophils as percent of blood leukocytes 1 % [facility] 1 monocytes as percent of blood leukocytes 5 % [facility] 1 lymphocytes as percent of blood leukocytes 18 % [facility] 1 neutrophils as percent of blood leukocytes 76 % [facility] 1 platelet count 316 X10E3/UL [facility] 836-447 6286/02/0 1 red blood cell distribution width 14.2 % [facility] 12.3-15.4 1 mean corpuscular hemoglobin concentration, RBC 32.9 G/DL [facility] 31.5-35.7 1 mean corpuscular hemoglobin, RBC 28.7 pg [facility] 26.6-33.0 1 mean corpuscular volume, RBC 87 fL [facility] 79-97 1 hematocrit, blood 41.6 % [facility] 37.5-51.0 1 hemoglobin, blood 13.7 g/dL [facility] 12.6-17.7 1 erythrocyte (RBC) count 4.77 X10E6/UL [facility] 4.14-5.80 1 leukocyte count, blood 7.3 X10E3/UL [facility] 3.4-10.8 1 alanine aminotransferase (SGPT), serum 14 1/L [facility] 0-44 1 aspartate aminotransferase (SGOT), serum 15 1/L [facility] 0-40 1 alkaline phosphatase, serum 49 1/L [facility] 39-117 1 bilirubin, serum, total 0.5 mg/dL [facility] 0.0-1.2 1 albumin/globulin ratio, serum 1.6 [facility] 1.1-2.5 1 globulin, serum 2.5 [facility] 1.5-4.5 1 albumin, serum 4.0 g/dL [facility] 3.5-5.5 1 protein, total, serum 6.5 g/dL [facility] 6.0-8.5 1 calcium, serum 9.6 mg/dL [facility] 8.7-10.2 1 carbon dioxide, venous blood 24 mmol/L [facility] 18-29 1 chloride, serum 102 mmol/L [facility] 96-106 1 potassium, serum 4.6 mmol/L [facility] 3.5-5.2 1 sodium, serum 142 mmol/L [facility] 774-675 6755/02/0 1 urea nitrogen/creatinine ratio, serum 8 [facility] 9-20 Low 1 eGFR if not 72 mL/min/{1 .73_m2} [facility] >59 1 creatinine, serum 1.20 mg/dL [facility] 0.76-1.27 1 urea nitrogen, blood 10 mg/dL [facility] 6-24 1 blood glucose, random 105 mg/dL [facility] 65-99 High HISTORY OF MEDICATION USE Medication Status Instructions Dates Provider Indications Com ments pantoprazole 40 mg tablet,delayed release (DR/EC) active Take 1 tablet by mouth twice daily 11/20 Jennifer Newton metformin 500 mg tablet active 1 tablet by mouth once a day 04/16 Amilcar Simon MD cholecalciferol (vitamin D3) 1,250 mcg (50,000 unit) capsule active 1 capsule by mouth once a week 04/16 Amilcar Moody SureTerrell 140 mg/mL pen injector active Inject subcutaneously every two weeks 04/16 Amilcar Simon MD Vitamin B-12 1,000 mcg tablet active 1 tablet by mouth once a day 04/16 Amilcar Simon MD hydrochlorothiaz kirit 25 mg tablet active 1 tablet by mouth once a day 04/15 Amilcar Simon MD clonazepam 0.5 mg tablet active Take 2 tablet by mouth every night 11/11 Amilcar Simon MD #60, 30 days supply, Prescribed by PRANAV GRANT, Filled 02/08/2020 quetiapine 50 mg tablet active Take 1 tablet by mouth every night 02/24 Amilcar Simon MD #30, 30 days supply, Prescribed by PRANAV GRANT, Filled 02/25/2020 hydrocodone-acet aminophen 5-325 mg tablet active Take 1 tablet by mouth every eight hours as needed 03/04 Amilcar Simon MD #21, 7 days supply, Prescribed by EVY SOUSA, Filled 03/04/2020 FAMOTIDINE 40 MG ORAL TABLET completed TAKE 1 2 TABLET(20 MG) BY MOUTH ONCE DAILY 01/06 - 04/15 Christina Solano NP #45, 90 days supply, Prescribed by ROBBIE PARHAM, Filled 03/24/2020 METFORMIN HCL 500 MG ORAL TABLET completed twice a day 05/02 - 04/15 Galina Christiansen FERROUS SULFATE 325 (65 FE) MG ORAL TABLET completed ONE PER DAY 05/02 - 04/15 Christina Solano NP RANITIDINE HCL 150 MG ORAL TABLET completed TAke 1 tab daily 05/02 - 04/15 Christina Solano NP VITAMIN D (ERGOCALCIFEROL) 02625 UNIT ORAL CAPSULE completed one capsule by mouth weekly 04/15 - 04/15 Galina Christiansen VITAMIN B-12 1000 MCG ORAL TABLET completed One tablet daily 04/09 - 04/15 Christina Solano NP TYLENOL WITH CODEINE #3 TABLET completed Take 1 tablet daily as needed 04/09 - 04/15 Christina Solano NP TOPAMAX 100 MG ORAL TABLET completed one a day 06/19 - 05/02 Amilcar Simon MD ADIPEX-P 37.5 MG ORAL CAPSULE completed one a day 06/19 - 05/02 Galina Christiansen fenofibrate 160 mg tablet active Take 1 tablet by mouth once a day 06/19 Galina Christiansen LOPID 600 MG ORAL TABLET completed twice a day 02/13 - 06/19 Galinakylah Christiansen TOPAMAX 50 MG ORAL TABLET completed daily 02/13 - 06/19 Galina Christiansen LOMAIRA 8 MG ORAL TABLET completed one a day 02/13 - 06/19 Galina Christiansen COREG 12.5 MG ORAL TABLET completed ONE TAB. TWICE DAILY 02/13 - 06/19 Galinakylah Christiansen FEOSOL TABLET completed daily 02/13 - 06/19 Galinaxochilt Christiansen VITAMIN D3 61088 UNIT ORAL TABLET completed TAKE ONE TAB BY MOUTH WEEKLY 02/13 - 06/19 Galina Christiansen CRESTOR 20 MG ORAL TABLET completed Take One Once a Day. 12/08 - 12/15 Rama Wood RN CRESTOR 10 MG ORAL TABLET completed ONE TAB. DAILY 12/03 - 12/08 Chirag Monte RN let him know this replaces the fenofibate VITAMIN D3 48524 UNIT ORAL CAPSULE completed one a week 12/03 - 02/13 Radha Gaspar let him know his d is low and he is a prediabetic CYANOCOBALAMIN 1000 MCG/ML INJECTION SOLUTION completed [facility] 12/03 - 06/19 Galina Christiansen LINZESS 290 MCG ORAL CAPSULE completed prn 11/21 - 06/19 Galina Christiansen CLONAZEPAM 2 MG ORAL TABLET completed once in the evening 11/21 - 04/15 Amilcar Simon MD ropinirole 0.25 mg tablet active 2 tablet by mouth once a day 11/21 Yevgeniy Mcclain propranolol 20 mg tablet active Take 1 tablet by mouth twice a day 03/02 Juan José Livingston FENOFIBRATE 160 MG ORAL TABLET completed once in the morning 11/21 - 12/03 Amilcar Simon MD lisinopril 40 mg tablet active tablet by mouth once a day 11/21 Yevgeniy Mcclain Paxil 40 mg tablet active 2 tablet by mouth once a day 11/21 Yevgeniy Mcclain pantoprazole 40 mg tablet,delayed release (DR/EC) completed twice daily 11/21 - 11/20 Amilcar Simon MD SOCIAL HISTORY Date Observation Value Provider smoking status Never smoker Galina Brysoncharito hernanedz social history E&M S moking History: Rhoda iyer has never smoked. Amilcar Simon MD social history reviewed E&M revi ewed - no changes required Amilcar Simon MD smoking status Never smoker Galina Brysoncharito hernandez social history E&M S moking History: Rhoda iyer has never smoked. Amilcar Simon MD social history reviewed E&M revi ewed - no changes required Amilcar Simon MD smoking status Never smoker Galina Brysoncharito hernandez social history E&M Smoking Histo ry: Rhoda iyer has never smoked. Christina Gonzalez NP social history reviewed E&M revi ewed - no changes required Christina Gonzalez NP smoking status Never smoker Galina Brysoncharito hernandez social history E&M S moking History: Rhoda iyer has never smoked. Amilcar Simon MD social history reviewed E&M revi ewed - no changes required Amilcar Simon MD smoking status Never smoker Radha Willa hidalgo smoking status Never smoker Zoila Wangnard social history E&M S moking History: Rhoda iyer has never smoked. Amilcar Simon MD social history reviewed E&M revi ewed - no changes required Amilcar Simon MD smoking status Never smoker Leigha Washing ton FUNCTIONAL STATUS Date Observation Value Provider periodic limb movement index absent (0) Yash Nassar MD FAMILY HISTORY Family Member Condition Father Family History of Hy pertension: Father Family History of Hy perlipidemia: Father Family History of Di abetes: Mother Family History of Hy pertension: Mother Family History of Hy perlipidemia: Mother Family History of Di abetes: INSURANCE PROVIDERS Payer name Policy type / Coverage type [place] [employer] party ID BLUE PREFERRED HMO Blue [facility] [id number] ADVANCE DIRECTIVES Name Date 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 Take 1 tablet once a day Christina Solano NP Cardiology:Added thi azide diuretic. H is updated medication list for this problem includes: Hydrochlorothiazide 25 Mg Oral Tablet (Hydrochlorothiazide) ..... One tab daily Propranolol Hcl 20 Mg Oral Tablet (Propranolol hcl) ..... Take 1 tab twice daily Lisinopril 40 Mg Oral Tablet (Lisinopril) ..... Once daily Christina Solano NP Cardiology:Lab work including Hg A1c ordered Christina Solano NP Cardiology:Repeat echo scheduled Christina Solano NP Cardiology follow up : H is updated medication list for this problem includes: Ranitidine Hcl 150 Mg Oral Tablet (Ranitidine hcl) ..... Take 1 tab daily Pantoprazole Sodium 40 Mg Oral Tablet Delayed Release (Pantoprazole sodium) ..... Twice daily D iscussed lifestyle modifications, diet, antacids/medications, and preventive measures. Handout provided. Amilcar Simon MD Cardiology follow up : H is updated medication list for this problem includes: Fenofibrate 160 Mg Oral Tablet (Fenofibrate) ..... Take 1 tablet once a day C HOL: 256 (04/15/2019) HDL: 47 (04/15/2019) Amilcar Siomn MD Cardiology follow up Amilcar monet MD Cardiology follow up :nml psa Corbin madhuri Simon MD Cardiology follow up : n ml pro Amilcar Simon MD Cardiology follow up :willl andreas t po iron Amilcar Simon MD Cardiology follow up :up to date on colon h ad allergicc rxn to rx, not aemaic, will rx po Amilcar Simon MD Cardiology follow up :did not brittani topaamx and adipix and wellburons, cannot take naltarexone due to codend, not heavye enoug for surgery Amilcar Simon MD Cardiology follow up :5.9 Amilcar Simon MD Cardiology follow up Amilcar monet MD Cardiology follow up Amilcar monet MD Cardiology follow up :neg psa, neg holter, had pvcs in past N EG SLEEP PER PT, neg tsh n ml , echo and treadmill Amilcar Simon MD Cardiology follow up :last holter negative 3 .8 percnet,neg echo and tradmill, Amilcar Simon MD Cardiology follow up :BP HAS BEEN HIGH H is updated medication list for this problem includes: Propranolol Hcl 10 Mg Oral Tablet (Propranolol hcl) ..... Once in the evening Lisinopril 40 Mg Oral Tablet (Lisinopril) ..... Once daily BP today: 128/70 P rior BP: 124/80 (06/19/2018) Prior 10 Yr Risk Heart Disease: Not enough information (01/12/2017) Labs Reviewed: C reat: 1.20 (11/29/2016) C hol: 210 (11/29/2016) HDL: 47 (11/29/2016) Aimlcar Simon MD Cardiology follow up : h ad allergicc rxn to rx, not aemaic, on po now Amilcar Simon MD Cardiology follow up : n ml pro Amilcar Simon MD Cardiology follow up :CANNOT TAKDE STATIN, CRP 8 H is updated medication list for this problem includes: Fenofibrate 160 Mg Oral Tablet (Fenofibrate) ..... Take 1 tablet once a day C HOL: 210 (11/29/2016) HDL: 47 (11/29/2016) Amilcar Simon MD Cardiology follow up Amilcar monet MD Cardiology follow up Amilcar monet MD Cardiology follow up : 3 .8 percnet,neg echo and tradmillAmilcar MD Cardiology follow up :NEG SLEEP PER PT n ml , echo and treadmill Amilcar Simon MD Cardiology follow up Amilcar monet MD Cardiology Follow up :rory lry di et pill Amilcar Simon MD Cardiology Follow up Amilcar monet MD Cardiology Follow up :nml pro Corbin madhuri Simon MD Cardiology Follow up :nml pro and tsh, echo and treadmill Amilcar Simon MD Cardiology Follow up :let start coreg B P today: 147/101 P rior BP: 142/88 (01/12/2017) Prior 10 Yr Risk Heart Disease: Not enough information (01/12/2017) Labs Reviewed: C reat: 1.20 (11/29/2016) C hol: 210 (11/29/2016) HDL: 47 (11/29/2016) Amilcar Simon MD Cardiology Follow up : n ot tested in 4 years but has it Amilcar Simon MD Cardiology Follow up :crp is 8, cnnot take statin will try lopid Amilcar Simon MD Cardiology Follow up :3.8 percnet,neg echo and tradmill, will try coreg Amilcar Simon MD Cardiology Follow up :on shots H mendez Simon MD Cardiology Follow up :had allergicc rxn to rx, not aemaic, on po now Amilcar Simon MD Cardiology:not tested in 4 years but has it Amilcar Simon MD Cardiology:nlm psa per pt Amilcar Simon MD Cardiology Amilcar Simon MD Cardiology Amilcar Simon MD Cardiology Amilcar Simon MD Cardiology: H is updated medication list for this problem includes: Fenofibrate 160 Mg Oral Tabs (Fenofibrate) ..... Once in the morning Amilcar Simon MD Cardiology Amilcar Simon MD Cardiology Amilcar Simon MD Date Name VITAMIN B12 Vitamin D, 25-Hydrox y IRON AND TOTAL IRON BINDING CAPACITY FERRITIN HEMOGLOBIN A1c LIPID PANEL CT, Coronary Calcium Score CT, Coronary Calcium Score COMPREHENSIVE METABO LIC PANEL, W/EGFR CBC (INCLUDES DIFF/P LT) PSA, TOTAL Complete Echo Renal Artery Duplex Vitamin D, 25-Hydrox y HEMOGLOBIN A1c IRON AND TOTAL IRON BINDING CAPACITY FERRITIN CT, Coronary Calcium Score LIPID PANEL Holter Monitor [address], Coronary Calcium Score Holter Monitor 24 Hr COMPREHENSIVE METABO LIC PANEL W/EGFR Sleep Study Home PROBNP, N TERMINAL THYROID PANEL WITH T SH, 3RD GENERATION ZIO Holter STR - Routine Complete Echo CBC (INCLUDES DIFF/P LT) C-REACTIVE PROTEIN LIPID PANEL VITAMIN D, 25-HYDROX Y, LC/MS/MS HEMOGLOBIN A1c VITAMIN B12 IRON AND TOTAL IRON BINDING CAPACITY FERRITIN HISTORY OF PROCEDURES Procedure Date Procedure Name Provider Procedure Notes S tatus EKG Amilcar Simon MD complete d EKG Amilcar Simon MD complete d EKG Amilcar Simon MD complete d SNOMED-CT: [id number] Current Medications Documented Amilcar Simon MD completed B12 Injection Amilcar Simon MD compl eted Stress EKG Saulius Shawn mota MD completed B12 Injection Amilcar Simon MD compl eted B12 Injection Amilcar Simon MD compl eted ZIO Holter Hookup Amilcar Simon MD c ompleted EKG Amilcar Simon MD complete d SNOMED-CT: [id number] Current Medications Documented Amilcar Simon MD completed
--- OUTSIDE RECORDS SUMMARY | 2025-01-22 00:59 | XMS_ITS | Referral Summary ---
Author Organization [facility] Address [address] [place] [id number] Care Team Providers Care News Clipping Cutter Name Role Phone Saeed Carvalho MD Primary Care Provider Freeman Howard MD Unavailable Huey Morales MD Unavailable [phone] Encounters Date Type Department Care Team Description 12/02/2024 11:14 AM FLOOR CASHIER - 12/02/2024 11:59 PM FLOOR CASHIER Hospital Encounter [address] [address] Dyspnea on exertion Discharge Disposition: Discharge to home or self care 12/02/2024 8:43 AM FLOOR CASHIER - 12/02/2024 11:59 PM FLOOR CASHIER Hospital Encounter [facility] [address] [place] [id number] Restrictive lung disease Discharge Disposition: Discharge to home or self care 12/02/2024 10:00 AM FLOOR CASHIER Office Visit [facility] [address] [facility] 8th [place] [address] [place] [address] Dalila Francis NP Lower respiratory infection (Primary Dx); Dyspnea on exertion; Post-nasal drip; Immunization counseling 12/02/2024 8:57 AM FLOOR CASHIER - 12/02/2024 11:59 PM FLOOR CASHIER Hospital Encounter [facility] [address] [facility] [address] [place] [address] Restrictive lung disease Discharge Disposition: Discharge to home or self care 11/25/2024 Orders Only [facility] [address] [place] [address] 8th [place] [address] Dominick Lilly, RN Restrictive lung disease (Primary Dx) 11/10/2024 Telephone [facility] [address] [place] [address] [place] [address] Dominick Lilly RN 11/06/2024 4:08 PM FLOOR CASHIER - 11/06/2024 11:59 PM FLOOR CASHIER Hospital Encounter [facility] ([facility]) [address] [place] [address] Discharge Disposition: Discharge to home or self care 10/31/2024 Telephone [facility] [address] [place] [address] 8th [place] [address] Dominick Lilly RN 10/30/2024 10:31 AM FLOOR CASHIER - 10/30/2024 11:59 PM FLOOR CASHIER Hospital Encounter [facility] ([facility]) [address] [place] [address] Dyspnea, unspecified type; Chronic dyspnea; Shortness of breath Discharge Disposition: Discharge to home or self care 10/27/2024 Orders Only [facility] [address] [place] [address] 8th [place] [address] Dominick Lilly, RN Dyspnea, unspecified type (Primary Dx); Chronic dyspnea; Shortness of breath 10/27/2024 8:00 AM FLOOR CASHIER Office Visit [facility] [address] [place] [address] 8th [place] [address] Restrictive lung disease (Primary Dx); Dyspnea, unspecified type; Chronic pain syndrome; Diaphragmatic paralysis from Last 3 Months Allergies Active Allergy Reactions Criticality Noted Date Comments Buspirone Angioedema High 06/05/2013 Ciprofloxacin Anaphylaxis High 09/08/2019 Gemfibrozil Other (See comments) High 06/19/2018 Iron Anaphylaxis,Swelling High 11/19/2017 IV iron infusion caused throat to swell Methocarbamol Unknown,Hives Medium 09/10/2003 Eknipht-Mba-Wrr Reductase Inhibitors Other (See comments) Low 04/16/2014 [...] 09/05/2024 Assessment & Plan (09/05/2024 9:47 AM FLOOR CASHIER): Patient was seen in the ER February [...] 09/05/2024 Assessment & Plan (09/05/2024 9:47 AM FLOOR CASHIER): Patient was having dysphagia, had an EGD a few days ago [facility]. No records available for review. -Obtain prior EGD records Family history of colon cancer 09/05/2024 Assessment & Plan (09/05/2024 9:48 AM FLOOR CASHIER): Maternal grandmother had colon cancer. Mother had polyps. Per patient last colonoscopy 5 years ago was normal. Constipation 09/05/2024 Assessment & Plan (09/05/2024 9:48 AM FLOOR CASHIER): Mild, chronic, intermittent. -High-fiber diet -MiraLax OTC p.r.n. 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 Cervicalgia 04/25/2021 Dysthymic disorder 04/19/2021 Gastroesophageal reflux disease 04/19/2021 Assessment & Plan (09/05/2024 9:47 AM FLOOR CASHIER): Chronic GERD, well-controlled with omeprazole 20 mg [...] Internal hemorrhoids 12/02/2024 025 Restlessness 11/21/2016 10/08/2023 Immunizations Immunization Administration Dates Next Due H1N1 [...] Unspecified 07/11/2004 Tdap 04/15/2017 ZOSTER Recombinant 10/25/2020,07/08/2020 Social History Tobacco Use Types Packs/Day Years Used Date Smoking Tobacco: Never Smokeless Tobacco: Never Tobacco Cessation:Counseling Given: Not Answered PHQ-2 Answer Date Recorded PHQ-2 Total Score (If total score is 3 or more points, staff should administer the PHQ-9) 4 05/14/2023 Sex and Gender Information Value Date Recorded Sex Assigned at Not on file Legal Sex Male 4:19 AM FLOOR CASHIER Gender Identity Male 04/04/2023 4:30 PM CDT Sexual Orientation Garcia 04/04/2023 4: 30 PM CDT Last Filed Vital Signs Vital Sign Reading Time Taken Comments Blood Pressure 134/90 12/02/2024 10:03 AM FLOOR CASHIER Pulse 98 12/02/2024 10:03 AM FLOOR CASHIER Temperature 35.6 C (96.1 F) 12/02/2024 10:03 AM FLOOR CASHIER Respiratory Rate 18 12/02/2024 10:03 AM FLOOR CASHIER Oxygen Saturation 98% 12/02/2024 10:03 AM FLOOR CASHIER Inhaled Oxygen Concentration - - Weight 112 kg (247 lb) 12/02/2024 10:03 AM FLOOR CASHIER Height 177.8 cm (5' 10 ) 12/02/2024 10:03 AM FLOOR CASHIER Body Mass Index 35.44 12/02/2024 10:03 AM FLOOR CASHIER Plan of Treatment Not on file Procedures Procedure Name Priority Date/Time Associated Diagnosis Comments RESPIRATORY PATHOGEN PANEL STAT 12/02/2024 2:00 PM FLOOR CASHIER Dyspnea on exertion PULMONARY FUNCTION TEST (PFT) Routine 12/02/2024 9:14 AM FLOOR CASHIER Restrictive lung disease XR CHEST PA LATERAL 2 VIEWS Schedule Routine, Read Routine (OP Routine) 12/02/2024 8:54 AM FLOOR CASHIER Restrictive lung disease CT BODY OUTSIDE REFERENCE Routine 11/06/2024 4:[address] CHEST WO CONTRAST Schedule Routine, Read Routine (OP Routine) 10/30/2024 10:45 AM FLOOR CASHIER Dyspnea, unspecified type Chronic dyspnea Shortness of breath from Last 3 Months Results * Respiratory pathogen panel Nasopharyngeal (12/02/2024 2:00 PM FLOOR CASHIER) Pathologist [facility] Influenza A RNA Not Detected Not Detected Influenza B RNA Not Detected Not Detected [facility] RSV RNA Not Detected Not Detected [facility] COVID-19 RNA Not Detected Not Detected [facility] Coronavirus 229E RNA Not Detected Not Detected [facility] Coronavirus HKU1 RNA Not Detected Not Detected [facility] Coronavirus NL63 RNA Not Detected Not Detected [facility] Coronavirus OC43 RNA Not Detected Not Detected [facility] Adenovirus DNA Not Detected Not Detected [facility] Metapneumovirus RNA Not Detected Not Detected [facility] Rhinovirus/Enterov irus RNA Not Detected Not Detected [facility] Parainfluenza 1 RNA Not Detected Not Detected [facility] Parainfluenza 2 RNA Not Detected Not Detected [facility] Parainfluenza 3 RNA Not Detected Not Detected [facility] Parainfluenza 4 RNA Not Detected Not Detected [facility] B. pertussis DNA Not Detected Not Detected [facility] B. parapertussis DNA Not Detected Not Detected [facility] C. pneumoniae DNA Not Detected Not Detected [facility] M. pneumoniae DNA Not Detected Not Detected [facility] Nasopharyngeal 12/02/2024 2: 00 PM FLOOR CASHIER 12/02/2024 4:06 PM FLOOR CASHIER Narrative [facility] - 12/02/2024 6:01 PM FLOOR CASHIER Is the Patient experiencing symptoms consistent with COVID?->Unknown Surveillance testing for transplant patient?->No Interpretive Data The StylePuzzle FilmArray Respiratory Panel (RP2.1) assay is a [...] assay has FDA clearance for testing of TRAFFIC CONTROL OFFICER swabs. The performance of additional specimen types has been assessed by the performing laboratory. The performance characteristics of this assay have been determined by [facility]. Current interpretive data was last revised on 22. us Dalila Francis TRAFFIC CONTROL OFFICER LAB MICROBIOLOGY - GENERA L ORDERABLES Final Result [facility] Department [place] [address] * Pulmonary Function Test - (12/02/2024 9:14 AM FLOOR CASHIER) FVC PRE 2.[address] [facility] FVC %PRE PRED 64 % [facility] FEV1 PRE 2.[address] [facility] FEV1 %PRE PRED 67 % [facility] FEV1/FVC PRE 82.8 % [facility] Anatomical Region Laterality Modality PFT 12/02/2024 9:07 AM FLOOR CASHIER Narrative 12/02/2024 9:39 PM FLOOR CASHIER PFT performed at:->[facility] Adult PFT [facility]- [id number] Procedure:->Spirometry Pulmonary Function [...] and %HbO2 is age dependent. However, the [facility] defines hypoxemia as a PaO2 <56 mm Hg or a %HbO2 <89%. Starting on October of 2024 the [facility] Function [facility] utilizes race neutral GLI Global normative equations. us Huey Morales MD PFT ORDERABLES Final Res ult * X-ray chest 2 views (12/02/2024 8:54 AM FLOOR CASHIER) Anatomical Region Laterality Modality Body, Chest N/A Computed Radiogr aphy 12/02/2024 9:32 AM FLOOR CASHIER Impressions 12/02/2024 9:32 AM FLOOR CASHIER Comparison is made to radiograph dated 04/09/2023. Hyperexpanded right lung. Elevation of the left hemidiaphragm with associated volume loss in the left lung, unchanged from the prior examination. No new consolidation. No pleural effusions. No pneumothorax. ACDF. Electronically signed by: Norman Jules M.D. Narrative 12/02/2024 9:32 AM FLOOR CASHIER EXAMINATION: 2 view chest radiograph Procedure Note [...] CT Body Outside Reference (11/06/2024 4:08 PM FLOOR CASHIER) Impressions [facility] - 11/06/2024 4:08 PM FLOOR CASHIER These images are for Reference purposes only and have not been reviewed by [facility]. There will be no report generated by a [facility]. Narrative [facility] - 11/06/2024 4:08 PM FLOOR CASHIER EXAMINATION: Images For Reference Purposes Only Huey Morales MD IMG CT PROCEDURES Final R esult [facility] * CT chest without contrast (10/30/2024 10:45 AM FLOOR CASHIER) Anatomical Region Laterality Modality Body N/A Computed Tomogra phy 10/30/2024 10:5 0 AM FLOOR CASHIER Impressions 10/30/2024 10:50 AM FLOOR CASHIER 1. Interval development of right basilar patchy groundglass opacities. May represent the sequela of interval aspiration. 2. Changes of fundoplication the left hemidiaphragm. Electronically signed by: José Manuel Hough M.D. Narrative 10/30/2024 10:50 AM FLOOR CASHIER EXAMINATION: CT CHEST WITHOUT INTRAVENOUS CONTRAST TECHNIQUE: [...] R esult from Last 3 Months Insurance [employer] [facility] Care Teams News Clipping Cutter Relationship Specialty Start Date End Date Saeed Carvalho MD [address] [facility] [address] [place] [address] PCP - General Family Medicine 12/08/21 Freeman Howard MD [address] [address] Pulmonary Disease 01/23/23 Huey Morales MD [address] [facility] [phone] [place] [address] Consulting Physician Pulmonary Disease 12/02/24
--- OUTSIDE RECORDS SUMMARY | 2025-01-22 00:59 | XMS_ITS | Clinical Summary ---
Author Organization [facility] Address [address] [place] [address] Care Team Providers Care Lead Sql Developer Name Role Phone Saeed Carvalho MD Primary Care Provider [phone] Berny Borja MD Unavailable [phone] Source Comments [facility],non-owned Affiliates and Associated Physician Practices is amultiple site organization consisting of ambulatory clinics and hospital sitesin [place], [place], [place] and [place]. This disclosure is being madepursuant to the Care Everywhere program and may not contain all information available regarding this patient. Last updated 18.[facility] Allergies Active Allergy Reactions Criticality Noted Date Comments Buspirone Hcl Angioedema High 06/05/2013 Ciprofloxacin Anaphylaxis High 09/11/2019 Gemfibrozil Other High 06/19/2018 Hmg-Coa-R Inhibitors Other 04/16/2014 Iron Swelling 11/19/2017 IV iron infusion caused throat to swell Methocarbamol Swelling High 11/19/2017 Sulfamethoxazole Angioedema High 02/21/2016 Sulfamethoxazole W-Trimethoprim Swelling,Anaphylaxis ,Unknown High 08/30/2017 Topiramate Unknown 05/02/2019 Tramadol Angioedema High 05/03/2018 Trimethoprim Angioedema High 02/21/2016 Medications * Be aware that medications may not be up to date on this document. Alwaysverify current medications with the patient. Medication Sig Dispensed Refills Start Date End Date Status lisinopril (PRINIVIL; ZESTRIL) 40 MG tablet Take 40 mg by mouth once daily Active fenofibrate (LOFIBRA) 160 MG tablet Take 160 mg by mouth once daily Take with largest meal of the day. Active PARoxetine (PAXIL) 40 MG tablet Take 80 mg by mouth once daily Active pantoprazole EC (PROTONIX) 40 MG tablet Take 40 mg by mouth daily before breakfast Active clonazePAM (KLONOPIN) 0.5 MG tablet Take 1 mg by mouth at bedtime 1 01/17/2019 Active propranolol (INDERAL) 20 MG tablet 2 times daily 11/11/2018 Active famotidine (PEPCID) 20 MG tablet Take 20 mg by mouth at bedtime 09/22/2019 Active rOPINIRole (REQUIP) 0.5 MG tablet Take 0.5 mg by mouth at bedtime Active ezetimibe (ZETIA) 10 MG tablet Take 10 mg by mouth once daily 06/28/2021 Active diclofenac sodium (VOLTAREN) 1 % gel 12/26/2021 Active albuterol HFA (Proventil; Ventolin; Proair) 108 (90 Base) MCG/ACT inhaler 05/18/2022 Active Azelastine HCl 137 MCG/SPRAY SOLN 06/29/2022 Active cyclobenzaprine (Flexeril) 10 MG tablet Take 1 (one) tablet by mouth 3 times daily as needed for Muscle Spasms 30 tablet 08/25/2022 Active oxyCODONE, immediate release, (Roxicodone) 5 MG tablet Take 1 (one) tablet by mouth every 6 hours as needed for Pain 16 tablet 08/25/2022 Active lidocaine (Lidoderm) 5 % patch Apply 1 (one) patch to skin once daily Apply patch to most painful area and remove after 12 hours. May reapply a new patch 12 hours later. 7 patch 08/25/2022 Active Active Problems Problem Noted Date Diagnosed Date Diaphragm paralysis 08/22/2022 Cervicalgia 04/25/2021 Hypersomnia with sleep apnea 04/19/2021 Other and unspecified hyperlipidemia 04/19/2021 Vitamin D deficiency 04/19/2021 Idiopathic urticaria 04/19/2021 Dysthymic disorder 04/19/2021 Essential hypertension 04/19/2021 Gastroesophageal reflux disease 04/19/2021 Headache 04/19/2021 Cervical spondylosis with radiculopathy 04/19/20 Chronic left-sided low back pain with left-sided sciatica 12/01/2019 Immunizations Name Administration Dates Next Due Jami Horner primary monoval ent 12+ yr 0.3mL Purple cap 12/22/2020,11/24/2020 INFLUENZA A I0V2-15 VACCINE 01/05/2010 INFLUENZA VACCINE 08/29/2015 Zoster Hzv Vacc Recombinant Inj Im 07/08/2020 iNFLUENZA VACCINE, RECOM-HURD, QUADR. (FLUBLOCK QUADRIVALENT; 18Y+) (RIV4) 07/27/2020,08/05/2019 Family History Medical History Relation Name Comments Diabetes - Type 1 Father Hypertension Father Cancer - Colon Maternal Grandmother Cancer - Colon Mother Diabetes - Type 1 Mother Hypertension Mother Relation Name Status Comments Father Maternal Grandmother Mother Social History Tobacco Use Types Packs/Day Years Used Date Smoking Tobacco: Never Smokeless Tobacco: Never Tobacco Cessation:Counseling Given: No Alcohol Use Standard Drinks/Week Comments Not Currently 2 (1 standard drink = 0.6 oz pur e alcohol) AUDIT-C Answer Date Recorded Q1: How often do you have a drink containing alcohol? Never 08/23/2022 Q2: How many drinks containi ng alcohol do you have on a typical day when you are drinking? Patient does not drink Q3: How often do you have si x or more drinks on one occasion? Never 08/23/2022 Hunger Vital Sign Answer Date Recorded Within the past 12 months, y ou worried that your food would run out before you got the money to buy more. Never true 08/24/20 22 Within the past 12 months, t he food you bought just didn't last and you didn't have money to get more. Never true 08/24/2022 Sex and Gender Information Value Date Recorded Sex Assigned at Male 07/21/2021 2:33 PM CDT Gender Identity Male 07/21/2021 2:33 PM CDT Sexual Orientation Garcia 07/21/2021 2: 33 PM CDT Last Filed Vital Signs Vital Sign Reading Time Taken Comments Blood Pressure 138/90 09/04/2022 2:37 PM WATER TEAM LEADER Pulse 85 09/04/2022 2:37 PM WATER TEAM LEADER Temperature 36.4 C (97.5 F) 09/04/2022 2:37 PM WATER TEAM LEADER Respiratory Rate 20 08/25/2022 11:03 AM CDT Oxygen Saturation 94% 09/04/2022 2:37 PM WATER TEAM LEADER Inhaled Oxygen Concentration 21% 08/22/2022 7 :10 PM CDT Weight 108.4 kg (239 lb) 09/04/2022 2:37 PM WATER TEAM LEADER Height 180.3 cm (5' 11 ) 09/04/2022 2:37 PM WATER TEAM LEADER Body Mass Index 33.33 09/04/2022 2:37 PM WATER TEAM LEADER Plan of Treatment Health Maintenance Due Date Last Done Comments COLOGUARD (AGES 45-75) - COLON CA SCREENING 1970 COLON MONITORING 1970 COLONOSCOPY - COLON CA SCREENING 1970 CT COLONOGRAPHY - COLON CA SCREENING 1970 Colorectal Cancer Screening 1970 FIT - COLON CA SCREENING 1970 FLEX SIG - COLON CA SCREENING 1970 LIPID TESTING 1970 HIV SCREENING 1985 HEPATITIS C SCREENING 01/10/1988 DTAP/TDAP/TD VACCINES (1 - Tdap) 1989 HEPATITIS B VACCINE (1 of 3 - 19+ 3-dose series) 1989 PNEUMOCOCCAL VACCINE 50+ (1 of 1 - PCV) 01/15/2020 ZOSTER VACCINE (2 of 2) 09/02/2020 07/08/2020 COVID-19 VACCINE (3 - 2023- season) 2024 12/22/2020, 11/24/2020 INFLUENZA VACCINE (#1) 2024 0, 08/05/2019, 08/02/2018, Additional history exists DEPRESSION SCREENING 10/29/2024 SCREENING FOR DIABETES 08/24/2025 2, 08/23/2022, 08/23/2022, Additional history exists HIB VACCINE Aged Out No longer eligi ble based on patient's age to complete this topic HPV VACCINE Aged Out No longer eligi ble based on patient's age to complete this topic MENINGOCOCCAL (Group B) VACCINE SHARED DECISION-MAKING Aged Out No longer eligible based on patient's age to complete this topic MENINGOCOCCAL GROUPS A/C/Y/W VACCINE Aged Out No longer eligible based on patient's age to complete this topic PNEUMOCOCCAL VACCINE Aged Out No long er eligible based on patient's age to complete this topic Medical Devices Implanted Type Area Radiopharmacist Device Identifier Shelf Expiration Date Model / Serial / Lot Graft Bone Grftn Dbm 5x2.5cm - [id number] Implanted:Qty : 1 on 12/01/2019 by Huey Chavarria MD at [facility] Spine Lumbar [employer] Inc 07/10/2022 [id number] / [id number] / Screw 7.5mm 50mm 2 Ld Thrd Frm Ma Clr Cd Implanted:Qty : 4 on 12/01/2019 by Huey Chavarria MD at [facility] Spine Lumbar Medtronic Inc [id number] / / Spcr Spnl [id number] Cpstn Peek-Optm Slf Implanted:Qty : 1 on 12/01/2019 by Huey Chavarria MD at [facility] Spine Medtronic Sofamor Danek Inc 07/15/2027 [id number] / / [id number] Reagan Spnl 35mm 4.75mm Cd Hzn Solera Crv Implanted:Qty : 1 on 12/01/2019 by Huey Chavarria MD at [facility] Spine Medtronic Inc [id number] / / Screw Set Ti 4.75mm Spne Nonster Implanted:Qty : 4 on 12/01/2019 by Huey Chavarria MD at [facility] Spine Medtronic Sofamor Danek Inc [id number] / / Reagan Spnl 30mm 4.75mm Cd Hzn Solera Crv Implanted:Qty : 1 on 12/01/2019 by Huey Chavarria MD at [facility] Spine Medtronic Inc [id number] / / Screw 3.6mm 14mm Fx Ang Slf Drl Spne Implanted:Qty : 1 on 04/19/2020 by Huey Chavarria MD at [facility] Spine Cervical [employer] [id number] / / Graft Bone Alfs Dbm 5ml Gel Implanted:Qty : 1 on 04/19/2020 by Huey Chavarria MD at [facility] [employer] 06/14/2022 [id number] / / [id number] Spacer Implanted:Qty : 1 on 04/19/2020 by Huey Chavarria MD at [facility] Spine Cervical [id number] / / Screw 3.6mm 14mm Std Va Slf Drl Spne Implanted:Qty : 1 on 04/19/2020 by Huey Chavarria MD at [facility] Spine Cervical [employer] [id number] / / Graft Bone Alfs Dbm 1ml Gel Implanted:Qty : 1 on 04/25/2021 by Huey Chavarria MD at [facility] Spine Cervical [employer] 05/08/2023 [id number] / / [id number] Spcr Spnl 16x8mm Coalition 7d Lrdtc 14mm Implanted:Qty : 1 on 04/25/2021 by Huey Chavarria MD at [facility] Spine Cervical [employer] [id number] / / Screw 3.6mm 14mm Fx Ang Slf Drl Spne Implanted:Qty : 1 on 04/25/2021 by Huey Chavarria MD at [facility] Spine Cervical [facility] [id number] / / Screw 3.6mm 16mm Slfdrl Va Spne Bone Implanted:Qty : 1 on 04/25/2021 by Huey Chavarria MD at [facility] Spine Cervical [facility] Medical 184.156 / / Sys Impl 1.9mm Fibertak Biceps [place] Implanted:Qty : 1 on 06/16/2021 by Katty Toussaint MD at [facility] Right: Shoulder [employer] 03/28/2026 [id number] / / [id number] Procedures Procedure Name Priority Date/Time Associated Diagnosis Comments BASIC METABOLIC PANEL (CALCIUM TOTAL) Timed 08/24/2022 11:58 PM CDT Diaphragm paralysis from Last 3 Months or Most Recently Relevant to Health Maintenance Results * (ABNORMAL) BASIC METABOLIC PANEL (CALCIUM TOTAL) (08/24/2022 11:58 PM CDT) BUN 11 7 - 26 mg/dL 08/25/2022 12:36 AM [facility] Creatinine 1.32(H) 0.71 - 1.16 mg/dL 08/25/2022 12:36 AM [facility] Sodium 138 136 - 145 mmol/L 08/25/2022 12:36 AM [facility] Potassium 4.0 3.5 - 4.5 mmol/L 08/25/2022 12:36 AM [facility] Chloride 103 98 - 107 mmol/L 08/25/2022 12:36 AM [facility] CO2 26 22 - 29 mmol/L 08/25/2022 12:36 AM [facility] Glucose 115 70 - 115 mg/dL 08/25/2022 12:36 AM [facility] Calcium 9.0 8.4 - 10.2 mg/dL 08/25/2022 12:36 AM [facility] Anion Gap 13 8 - 18 08/25/2022 12:36 AM [facility] BUN/Creatinine Ratio 8 7 - 23 08/25/2022 12:36 AM [facility] Osmolality Calculated 286 270 - 300 mOsm/kg 08/25/2022 12:36 AM [facility] eGFR by CKD-EPI 65(L) >=90 mL/min/1.7 3 m2 08/25/2022 12:36 AM [facility] Blood BLOOD SPECIMEN / Unknown Lab Venipuncture / Unknown 08/24/2022 11:58 PM CDT 08/25/2022 12:[address] [facility] Jerson Villeda MD LAB - HUMAN SERVICE WORKER [employer] [facility] [address] [place] [address], [facility] [phone] from Last 3 Months or Most Recently Relevant to Health Maintenance Advance Directives * Full Code (Latest Code Status on File) Date Activated Date Inactivated Comments 08/22/2022 7:12 PM 08/25/2022 4:45 PM * Full Code Date Activated Date Inactivated Comments 04/25/2021 3:47 PM 04/26/2021 2:26 PM * Full Code Date Activated Date Inactivated Comments 04/19/2020 12:38 PM 04/20/2020 11:44 AM * Full Code Date Activated Date Inactivated Comments 12/01/2019 7:36 PM 12/02/2019 6:05 PM Care Teams Lead Sql Developer Relationship Specialty Start Date End Date Saeed Carvalho MD [address] [place] [address] PCP - General Family Medicine 11/15/17 [place] [address] [facility] [address] [place] [address] Physical Medicine and Rehabilitation 01/24/22
[2025-01-22 07:14] VITALS: BP 126/105; PULSE 90; RESP 16; TEMP 35.8; O2SAT 96; BMI 34.0
[2025-01-22] MEDS: LACTATED RINGERS 1,000 ML 150 ML IV CONT (07:30)
--- NOTE | 2025-01-22 08:09 | WPDANESEPPF ---
Anes - Initial Pre Proc Eval Procedure: Operation Date: 01/22/25 08:30 Proposed Procedures p Colonoscopy - Ramon More MD Date/Time: 01/22/25 08:09 Surgeon: Ramon More MD Pre Op Diagnosis: family hx of cancer Patient Data Age: 55 Gender: M Height: 1.8 m Weight: 110.7 kg Last Vital Signs Temp 96.5 F L 01/22/25 07:14 Pulse 90 01/22/25 07:14 Resp 16 01/22/25 07:14 BP 126/105 H 01/22/25 07:14 Pulse Ox 96 01/22/25 07:14 O2 Del Method Room Air 01/22/25 07:14 Allergies Allergy/AdvReac Type Severity Reaction Status Date / Time atorvastatin Allergy Severe Anaphylaxis Verified 01/22/25 07:20 buspirone Allergy Severe Anaphylaxis Verified 01/22/25 07:20 cholecalciferol (vitamin D3) Allergy Severe Anaphylaxis Verified 01/22/25 07:20 ferumoxytol Allergy Severe Anaphylaxis Verified 01/22/25 07:20 methocarbamol Allergy Severe Anaphylaxis Verified 01/22/25 07:20 Fbefuzs-CZM-LfL Reductase Allergy Severe Anaphylaxis Verified 01/22/25 07:20 Inhibitor (Mzxkynx-Lxa-Tei Reductase Inhibitor) sulfamethizole Allergy Severe Anaphylaxis Verified 01/22/25 07:20 sulfamethoxazole Allergy Severe Anaphylaxis Verified 01/22/25 07:20 tramadol Allergy Severe Anaphylaxis Verified 01/22/25 07:20 trimethoprim Allergy Severe Anaphylaxis Verified 01/22/25 07:20 Home Medications ?Medication ?Instructions ?Recorded ?Confirmed ?Type clonazepam 0.5 mg tablet 0.5 mg PO BID 11/17/19 01/22/25 History paroxetine HCl 40 mg tablet 40 mg PO DAILY 11/17/19 01/22/25 History loratadine 10 mg tablet 10 mg PO DAILY 01/22/24 01/22/25 History valsartan 320 mg tablet 320 mg PO DAILY #90 tabs 06/27/24 01/22/25 Rx albuterol sulfate 90 mcg/actuation 1 inh inhalation Q4H PRN shortness 08/11/24 01/13/25 Rx aerosol inhaler of breath or wheezing #6.7 grams fenofibrate 160 mg tablet 160 mg PO DAILY #90 tabs 09/22/24 01/22/25 Rx ropinirole 1 mg tablet 1 mg PO QHS #90 tabs 09/22/24 01/22/25 Rx dexlansoprazole 60 mg 60 mg PO DAILY #90 caps 10/01/24 01/22/25 Rx capsule,biphase delayed release (Dexilant) diltiazem HCl 180 mg See Rx Instructions .Route 12/29/24 01/22/25 Rx capsule,extended release 24 hr .COMPLEX #30 caps ezetimibe 10 mg tablet (Zetia) 10 mg PO DAILY #90 tabs 12/29/24 01/22/25 Rx plecanatide 3 mg tablet (Trulance) See Rx Instructions .Route 12/29/24 01/22/25 Rx .COMPLEX #30 tabs propranolol 20 mg tablet 20 mg PO Q12H #180 tabs 12/30/24 01/22/25 Rx Patient hx anesthesia problems: none Family hx anesthesia problems: none Results Review: All pre-operative results and documents have been reviewed as part of the pre-operative evaluation. [facility], [facility] Past Medical History Medical History CKD (chronic kidney disease), stage III Statin intolerance Chronic cough Obesity Acquired elevated hemidiaphragm Arthritis Claustrophobia Internal impingement of right shoulder Degenerative tear of glenoid labrum of right shoulder Tendinitis of right rotator cuff Surgical History Surgical History History of thoracic surgery diaphragm plication 07/2022 S/P arthroscopy of right shoulder History of lumbar spinal fusion History of cervical discectomy C5-6,C6-7,C7-T1 Fusion approximately 07/2020. Family History Family History Father Hypertension Mother Hypertension Sibling Hypertension Other Arthritis Diabetes mellitus High cholesterol Neuropathy Social History Social History Social History: Spouse Smoking status: Never smoker Second hand tobacco smoke exposure: No Alcohol intake: current Alcohol use details: 2 per month Substance use: never Substance use type: does not use Do You Feel Safe in your Home?: Yes Lack of Transportation: No Lack of Food: Never True Current Housing: I Have Housing Concerned About Future Housing: No Difficulty Paying Gas/Electric Bills: No Difficulty Paying for Meds: No Currently Unemployed: No Education: Master's Degree or Higher Difficulty w/ Childcare or Family Care: No Living arrangements: with family Occupation/Education: occupation Gender identity (if verbalized by the patient): Male Sexual Orientation (if Verbalized by the Patient): Lesbian, Garcia, or Homosexual Spiritual care concerns: No Anes - Eval Final PreProcedure Day of Procedure 01/22/25 08:09 Patient weight: obese Heart: regular rate and rhythm Lungs: clear to auscultation Airway: Mallampati scale class II Neurological: alert and oriented Last oral intake: >/= 8 hours ASA classification: III Emergent: no Anesthetic plan: proceed Anesthesia type and monitoring: general GIVS and standard monitoring Results Review: All pre-operative results and documents have been reviewed as part of the pre-operative evaluation. Informed Consent: The patient's anesthetic plan and its attendant risks and benefits were discussed with the patient/family/POA. Questions were solicited and answers provided to the satisfaction of the patient/family/POA.
--- NOTE | 2025-01-22 09:18 | PM.IMHP ---
H&P: HPI History of Present Illness Date/Time: 01/22/25 09:18 Chief Complaint: Family history of colorectal cancer Narrative: This patient has family history of colorectal cancer. his mother had colon cancer at age 60. Review of Systems Review of Systems: All systems reviewed & are unremarkable except as noted in HPI and below PMFSH Past Medical History Medical History CKD (chronic kidney disease), stage III Statin intolerance Chronic cough Obesity Acquired elevated hemidiaphragm Arthritis Claustrophobia Internal impingement of right shoulder Degenerative tear of glenoid labrum of right shoulder Tendinitis of right rotator cuff Surgical History Surgical History History of thoracic surgery diaphragm plication 07/2022 S/P arthroscopy of right shoulder History of lumbar spinal fusion History of cervical discectomy C5-6,C6-7,C7-T1 Fusion approximately 07/2020. Family History Family History Father Hypertension Mother Hypertension Sibling Hypertension Other Arthritis Diabetes mellitus High cholesterol Neuropathy Social History Social History Social History: Spouse Smoking status: Never smoker Second hand tobacco smoke exposure: No Alcohol intake: current Alcohol use details: 2 per month Substance use: never Substance use type: does not use Do You Feel Safe in your Home?: Yes Lack of Transportation: No Lack of Food: Never True Current Housing: I Have Housing Concerned About Future Housing: No Difficulty Paying Gas/Electric Bills: No Difficulty Paying for Meds: No Currently Unemployed: No Education: Master's Degree or Higher Difficulty w/ Childcare or Family Care: No Living arrangements: with family Occupation/Education: occupation Gender identity (if verbalized by the patient): Male Sexual Orientation (if Verbalized by the Patient): Lesbian, Garcia, or Homosexual Spiritual care concerns: No Meds Home Medications and Allergies Home Medications ?Medication ?Instructions ?Recorded ?Confirmed ?Type clonazepam 0.5 mg tablet 0.5 mg PO BID 11/17/19 01/22/25 History paroxetine HCl 40 mg tablet 40 mg PO DAILY 11/17/19 01/22/25 History loratadine 10 mg tablet 10 mg PO DAILY 01/22/24 01/22/25 History valsartan 320 mg tablet 320 mg PO DAILY #90 tabs 06/27/24 01/22/25 Rx albuterol sulfate 90 mcg/actuation 1 inh inhalation Q4H PRN shortness 08/11/24 01/13/25 Rx aerosol inhaler of breath or wheezing #6.7 grams fenofibrate 160 mg tablet 160 mg PO DAILY #90 tabs 09/22/24 01/22/25 Rx ropinirole 1 mg tablet 1 mg PO QHS #90 tabs 09/22/24 01/22/25 Rx dexlansoprazole 60 mg 60 mg PO DAILY #90 caps 10/01/24 01/22/25 Rx capsule,biphase delayed release (Dexilant) diltiazem HCl 180 mg See Rx Instructions .Route 12/29/24 01/22/25 Rx capsule,extended release 24 hr .COMPLEX #30 caps ezetimibe 10 mg tablet (Zetia) 10 mg PO DAILY #90 tabs 12/29/24 01/22/25 Rx plecanatide 3 mg tablet (Trulance) See Rx Instructions .Route 12/29/24 01/22/25 Rx .COMPLEX #30 tabs propranolol 20 mg tablet 20 mg PO Q12H #180 tabs 12/30/24 01/22/25 Rx Allergies Allergy/AdvReac Type Severity Reaction Status Date / Time atorvastatin Allergy Severe Anaphylaxis Verified 01/22/25 07:20 buspirone Allergy Severe Anaphylaxis Verified 01/22/25 07:20 cholecalciferol (vitamin D3) Allergy Severe Anaphylaxis Verified 01/22/25 07:20 ferumoxytol Allergy Severe Anaphylaxis Verified 01/22/25 07:20 methocarbamol Allergy Severe Anaphylaxis Verified 01/22/25 07:20 Fbsdgug-UII-DdT Reductase Allergy Severe Anaphylaxis Verified 01/22/25 07:20 Inhibitor (Ryfjjjv-Syk-Jhj Reductase Inhibitor) sulfamethizole Allergy Severe Anaphylaxis Verified 01/22/25 07:20 sulfamethoxazole Allergy Severe Anaphylaxis Verified 01/22/25 07:20 tramadol Allergy Severe Anaphylaxis Verified 01/22/25 07:20 trimethoprim Allergy Severe Anaphylaxis Verified 01/22/25 07:20 Vital Signs Vital Signs - 24 hr 01/22/25 07:14 Temperature 96.5 F L Pulse Rate 90 Respiratory Rate 16 Blood Pressure 126/105 H Pulse Oximetry 96 Oxygen Delivery Room Air Exam Const: General: cooperative and healthy appearing Resp: Effort & Inspection: normal respiratory effort and able to speak in complete sentences Auscultation: clear to auscultation bilaterally Cardio: Rate: regular rate Rhythm: regular rhythm GI: Inspection: normal to inspection GI Palp: No No hepatosplenomegaly present Auscultation: normal bowel sounds Rectal Exam: deferred Skin: General skin exam: normal color Psych: Appearance: grossly normal Mental Status: mental status grossly normal Assessment and Plan Assessment and plan (1) Family history of colon cancer: Code(s): Z80.0 - Family history of malignant neoplasm of digestive organs Status: Acute Assessment and Plan: The patient is deemed a good candidate for the procedure. Consent signed. Will proceed.
[2025-01-22 09:45] VITALS: BP 120/86; PULSE 91; RESP 22; O2SAT 100
[2025-01-22 09:55] VITALS: BP 131/92; PULSE 89; RESP 22; O2SAT 100
[2025-01-22 10:05] VITALS: BP 130/98; PULSE 90; RESP 22; O2SAT 100
== END 2025-01-22 10:14 | disposition home or self-care (01) ==
PROVIDERS: PCP Family Medicine; Referring Provider Nurse Practitioner; Visit Provider Internal Medicine Gastroenterology
PROC: 0DJD8ZZ Inspection of Lower Intestinal Tract, Via Natural or Artificial Opening Endoscopic (ICD-10-PCS; CPT 45378; principal; 2025-01-22 08:30)
DX: Z12.11 Encounter for screening for malignant neoplasm of colon (principal); K63.5 Polyp of colon; N18.30 Chronic kidney disease, stage 3 unspecified; R05.3 Chronic cough; F40.240 Claustrophobia; J98.6 Disorders of diaphragm; M19.90 Unspecified osteoarthritis, unspecified site; E66.9 Obesity, unspecified; Z68.34 Body mass index [BMI] 34.0-34.9, adult; Z79.51 Long term (current) use of inhaled steroids; Z98.890 Other specified postprocedural states; Z98.1 Arthrodesis status; Z80.0 Family history of malignant neoplasm of digestive organs
CPT/HCPCS: 45385; 88305; J2003; J2704; J7120

== ENCOUNTER 2025-03-11 11:00 | Emergency (ER) | payer OTHER, SELFPAY ==
[2025-03-11 11:13] VITALS: BP 124/82; PULSE 96; RESP 16; TEMP 36.4; O2SAT 98
--- NOTE | 2025-03-11 11:13 | ED_ITS ---
HPI - General Adult General Chief complaint: Back Pain/Injury Stated complaint: fall Time Seen by Provider: 03/11/25 11:13 Source: patient, family, RN notes reviewed and old records reviewed Mode of arrival: ambulatory Limitations: no limitations History of Present Illness HPI narrative: 55 year old male accompanied by spouse with complaints of falling out of bed during the night while having a dream and hit his lower back on the wooden bed frame. Patient reports constant pain across his lower back and intermittent pain into his left hip which does radiate down his left leg. Patient reports when he awoke this morning his toes felt numb but no longer numbness to left toes. Patient reports that he has applied a Lidocaine patch to his lumbar back.Patient voices concern of his back pain since he has had prior lumbar fusion. MD complaint: lower back pain ,intermittent left hip pain Onset (ago): hour(s) (during the night) Location: back (across lower back) and lower extremity (left hip) Radiation: other (down left leg) Severity scale (1-10): 5 Quality: aching Treatments prior to arrival: other (Lidocaine pain patch to lumbar back) Related Data Home Medications Medication Instructions Recorded Confirmed Last Taken Type clonazepam 0.5 mg tablet 0.5 mg PO BID 11/17/19 01/29/25 01/21/25 History paroxetine HCl 40 mg tablet 40 mg PO DAILY 11/17/19 01/29/25 01/21/25 History loratadine 10 mg tablet 10 mg PO DAILY 01/22/24 01/29/25 01/21/25 History hydralazine 25 mg tablet 25 mg PO BID 02/27/25 Unknown History bempedoic acid 180 mg-ezetimibe 10 1 tablet PO DAILY 03/11/25 Unknown History mg tablet Allergies Allergy/AdvReac Type Severity Reaction Status Date / Time atorvastatin Allergy Severe Anaphylaxis Verified 03/11/25 11:22 buspirone Allergy Severe Anaphylaxis Verified 03/11/25 11:22 cholecalciferol (vitamin D3) Allergy Severe Anaphylaxis Verified 03/11/25 11:22 ferumoxytol Allergy Severe Anaphylaxis Verified 03/11/25 11:22 methocarbamol Allergy Severe Anaphylaxis Verified 03/11/25 11:22 Lsapiyd-BHK-EnY Reductase Allergy Severe Anaphylaxis Verified 03/11/25 11:22 Inhibitor (Qrnhsdb-Uxd-Kny Reductase Inhibitor) sulfamethizole Allergy Severe Anaphylaxis Verified 03/11/25 11:22 sulfamethoxazole Allergy Severe Anaphylaxis Verified 03/11/25 11:22 tramadol Allergy Severe Anaphylaxis Verified 03/11/25 11:22 trimethoprim Allergy Severe Anaphylaxis Verified 03/11/25 11:22 hydrochlorothiazide AdvReac Unknown lip Verified 03/11/25 11:22 swelling Review of Systems Review of Systems: CONSTITUTIONAL: Denies fever, chills, or sweats. EYES: Denies visual changes, redness, or discharge. ENT: Denies rhinorrhea, congestion, sore throat, or otalgia. CARDIOVASCULAR: Denies chest pain, palpitations, or edema. RESPIRATORY: Denies cough or dyspnea. GASTROINTESTINAL: Denies abdominal pain, nausea, vomiting, or diarrhea. GENITOURINARY: Denies dysuria or hematuria. SKIN: Denies rash or itching. MUSCULOSKELETAL: Reports lower back pain and radiation of pain to left hip and down his left leg, denies any tingling or numbness to his foot, or myalgia. NEUROLOGIC: Denies headache, numbness, or weakness. PSYCHIATRIC: Reports history of anxiety or depression. All systems reviewed & are unremarkable except as noted in HPI and below PMFSH Past Medical History Medical History CKD (chronic kidney disease), stage III Statin intolerance Chronic cough Obesity Acquired elevated hemidiaphragm Arthritis Claustrophobia Internal impingement of right shoulder Degenerative tear of glenoid labrum of right shoulder Tendinitis of right rotator cuff Surgical History Surgical History History of thoracic surgery diaphragm plication 07/2022 S/P arthroscopy of right shoulder History of lumbar spinal fusion History of cervical discectomy C5-6,C6-7,C7-T1 Fusion approximately 07/2020. Family History Family History Father Hypertension Mother Hypertension Sibling Hypertension Other Arthritis Diabetes mellitus High cholesterol Neuropathy Social History Social History Social History: Spouse Smoking status: Never smoker Second hand tobacco smoke exposure: No Alcohol intake: current Alcohol use details: 2 per month Substance use: never Substance use type: does not use Do You Feel Safe in your Home?: Yes Lack of Transportation: No Lack of Food: Never True Current Housing: I Have Housing Concerned About Future Housing: No Difficulty Paying Gas/Electric Bills: No Difficulty Paying for Meds: No Currently Unemployed: No Education: Master's Degree or Higher Difficulty w/ Childcare or Family Care: No Living arrangements: with family Occupation/Education: occupation Gender identity (if verbalized by the patient): Male Sexual Orientation (if Verbalized by the Patient): Lesbian, Garcia, or Homosexual Spiritual care concerns: No Comments At time of signature, agree with nursing past medical, surgical, social and family history. There is no relevant family history pertinent to the presenting complaint Exam Narrative: GENERAL: Well-appearing, well-nourished, and in no acute distress.ambulatory with steady gait HEAD: Normocephalic, atraumatic. EYES: PERRLA and EOMI. ENT: Nares clear, no rhinorrhea or epistaxis. Mucous membranes moist.TM's normal throat pink with no swelling NECK: Supple. no lymphadenopathy CHEST: Clear to auscultation. No respiratory distress.SAO2 98% on room air HEART: Regular rate and rhythm. No murmur heard. Normal peripheral pulses. ABDOMEN: Soft, nontender, nondistended, normal active bowel sounds. EXTREMITIES: Normal range of motion. No edema. Reports constant pain across his lower back from falling on the wooden bed frame during the night when he was having a dream reports some intermittent left hip discomfort going down left leg, denies any present tingling or numbness to his left foot. Patient has strong pedal pulses bilaterally. SKIN: Warm, dry, no rash. NEURO: No focal deficits. Alert and oriented x3. Course Course Emergency Course: Patient is aware of diagnosis, understands and agrees to treatment plan. Anti cipatory guidance given. Patient agrees to follow-up as directed and is aware of reasons to seek care at the emergency department. Portions of this record may have been created with voice recognition software Level of Care: Express Care Visit Vital Signs Vital signs: Vital Signs Temperature 36.4 C 03/11/25 11:13 Pulse Rate 96 03/11/25 11:13 Respiratory Rate 16 03/11/25 11:13 Blood Pressure 124/82 03/11/25 11:13 Pulse Oximetry 98 03/11/25 11:13 Oxygen Delivery Room Air 03/11/25 11:13 Temperature 36.4 C 03/11/25 11:13 Pulse Rate 96 03/11/25 11:13 Respiratory Rate 16 03/11/25 11:13 Blood Pressure 124/82 03/11/25 11:13 Pulse Oximetry 98 03/11/25 11:13 Oxygen Delivery Room Air 03/11/25 11:13 Reviewed Medical Decision Making MDM Narrative Medical decision making narrative: Exam findings and imaging show no acute concerns or changes; patient is non- toxic appearing and is in no distress. Patient is appropriate for outpatient treatment and follow-up Differential Diagnosis Differential Diagnosis: lumbar back pain, muscle strain lower back, pain to left hip,lumbar radiculopathy Medical Records Medical records reviewed: Yes I reviewed the external patient's medical records. Vital Signs Vital Signs: Vital Signs Temperature 36.4 C 03/11/25 11:13 Pulse Rate 96 03/11/25 11:13 Respiratory Rate 16 03/11/25 11:13 Blood Pressure 124/82 03/11/25 11:13 Pulse Oximetry 98 03/11/25 11:13 Oxygen Delivery Room Air 03/11/25 11:13 Temperature 36.4 C 03/11/25 11:13 Pulse Rate 96 03/11/25 11:13 Respiratory Rate 16 03/11/25 11:13 Blood Pressure 124/82 03/11/25 11:13 Pulse Oximetry 98 03/11/25 11:13 Oxygen Delivery Room Air 03/11/25 11:13 reviewed Imaging Data Attestation: I personally reviewed and interpreted this imaging study as follows: My impression: no significant abnormality seen, no fracture or dislocation, lumbar fusion hardware noted, soft tissue unremarkable Bilateral hip and SI joint space preserved Radiologist's impression: [address] [address] XRay Report Signed Patient: Sunny Huerta : 1970 MR#: [id number] Age: 55 Acct:[id number] Loc: [facility] ADM Date: 03/11/25Attending Dr: Ordering Physician: Ann Leach APRN Date of Service: 03/11/25 Procedure(s): XR hip LT 2V w AP pelvis Accession Number(s): [id number] cc: Saeed Carvalho MD; Ann Leach APRN~ AP view of the pelvis and AP and lateral views of the left hip Clinical history: Pain Findings: No acute fracture or dislocation is seen. Osseous alignment is anatomic. Bilateral hip and SI joint spaces are preserved. Lumbosacral spinal fixation hardware noted. Soft tissues are unremarkable. Impression: No significant abnormality is seen. Reviewed, dictated and finalized at [facility]. Please be advised this is a medical document. It is intended for infv-uj-hxtk communication. It is written in medical language and may contain unfamiliar abbreviations or verbiage. Medical documents are intended to carry relevant information, facts as evident, and the clinical opinion of the practitioner at the time of the encounter. This report may have been done utilizing a voice recognition system. Attempts have been made to correct errors. However, there may be uncorrected grammatical, spelling, and recognition errors present. The file time of this note does not necessarily represent the time of service. Dictated By: Geoff Renner MD 03/11/25 1154 Signed By: <Electronically signed by Geoff Renner MD in OV> Critical Care Time Critical Care Time Critical Care Time: No Discharge Plan Discharge Clinical Impression: Lumbar back pain, Hip pain, left Patient Disposition: Home Condition: Stable Instructions: Antibiotic Form, Back Pain (ED), Hip Pain (ED) Additional Instructions: Ice and heat to the area for 20-30 minutes Gentle stretching exercises Gentle massage Caution with lifting, bending, stooping, twisting Avoid pushing, pulling take muscle relaxants as directed--caution drowsiness and no driving or alcohol Anti-inflammatory medicine as directed--take with food He may take the muscle relaxant and anti-inflammatory at the same time Follow-up with your PCP if not improving in 5-7 days Patient Language: Armenian Prescriptions: New cyclobenzaprine 5 mg tablet 5 mg PO HS PRN (Reason: muscle spasm) Qty: 14 0RF Rx Instructions: Take at bedtime No Action loratadine 10 mg tablet 10 mg PO DAILY dexlansoprazole [Dexilant] 60 mg capsule,biphase delayed releas 60 mg PO DAILY Qty: 90 3RF paroxetine HCl 40 mg tablet 40 mg PO DAILY clonazepam 0.5 mg tablet 0.5 mg PO BID albuterol sulfate 90 mcg/actuation HFA aerosol inhaler 1 inh inhalation Q4H PRN (Reason: shortness of breath or wheezing) Qty: 6.7 0RF ropinirole 1 mg tablet 1 mg PO QHS Qty: 90 1RF valsartan 320 mg tablet 320 mg PO DAILY Qty: 90 3RF diltiazem HCl 180 mg capsule,extended release 24hr See Rx Instructions .ROUTE .COMPLEX Qty: 30 2RF Dose Instruction: Take 1 capsule by mouth once daily Rx Instructions: Take 1 capsule by mouth once daily propranolol 20 mg tablet 20 mg PO Q12H Qty: 180 2RF hydralazine 25 mg tablet 25 mg PO BID Trulance 3 mg tablet See Rx Instructions .ROUTE .COMPLEX Qty: 30 2RF Dose Instruction: Take 1 tablet by mouth once daily Rx Instructions: Take 1 tablet by mouth once daily bempedoic acid-ezetimibe 180-10 mg tablet 1 tablet PO DAILY Follow-up/Referrals: Saeed Carvalho MD [Primary Care Provider] - Time of Disposition: 12:04 Quality [place] Coma Scale Eyes: Open Verbal: Oriented and Alert Motor: Follows Commands [place] Coma Total Score: 15
--- OUTSIDE RECORDS SUMMARY | 2025-03-11 11:17 | XMS_ITS | Encounter Summary ---
Author Organization [facility] Address [address] [place] [address] Care Team Providers Care Gas Maker Helper Name Role Phone Saeed Carvalho MD Primary Care Provider [phone] Encounter Details Date Type Department Care Team (Late st Contact Info) Description 02/14/2023 Photorankhart Message Enc [facility] Medical Group Multispecialty Care - [facility] [address] [facility] [place] [id number] Freeman Howard MD [address] [facility] [address] [place] [address] PULMONARY STUDY Social History Tobacco Use Types [...] CDT Gender Identity Male 11/28/2021 4:54 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
--- OUTSIDE RECORDS SUMMARY | 2025-03-11 11:17 | XMS_ITS | Encounter Summary ---
Author Organization [facility] Address [address] [place] [address] Care Team Providers Care Ecommerce Project Manager Name Role Phone Saeed Carvalho MD Primary Care Provider Berny Borja MD Unavailable [phone] Encounter Details Date Type Department Care Team (Late st Contact Info) Description 07/20/2020 [facility] Visit [facility]NAL [facility] DEPT Unknown, Provider Social History Tobacco Use Types Packs/Day Years Used Date Smoking Tobacco: Never Smokeless Tobacco: Never Alcohol Use Standard Drinks/Week Comments Yes 2 (1 standard drink = 0.6 oz pur e alcohol) Sex and Gender Information Value Date Recorded Sex Assigned at Male 07/21/2021 2:33 PM CDT Legal Sex Male 5:49 PM UTILIZATION SPECIALIST Gender Identity Male 07/21/2021 2:33 PM CDT Sexual Orientation Garcia 07/21/2021 2: 33 PM CDT documented as of this encounter Functional Status * Is person deaf or have serious hearing difficulty? Answer Date of Assessment Author No 12/01/2019 9:00 PM Valerie Pantoja RN * Is person blind or have serious difficulty seeing? Answer Date of Assessment Author No 12/01/2019 9:00 PM Valerie Pantoja RN * Does person have serious difficulty walking/climbing stairs? Answer Date of Assessment Author No 12/01/2019 9:00 PM Valerie Pantoja RN * Does person have difficulty dressing/bathing? Answer Date of Assessment Author No 12/01/2019 9:00 PM Valerie Pantoja RN * Does person have difficulty doing errands alone? Answer Date of Assessment Author No 12/01/2019 9:00 PM Valerie Pantoja RN documented as of this encounter Mental Status * Does person have difficulty concentrating/remembering/making decisions? Answer Entry Date Author No 12/01/2019 9:00 PM Valerie Pantoja RN documented in this encounter Plan of Treatment Not on file documented as of this encounter Visit Diagnoses Not on filedocumented in this encounter Care Teams Ecommerce Project Manager Relationship Specialty Start Date End Date Saeed Carvalho MD [address] [address] [address] [place] [address] PCP - General Family Medicine 11/15/17 [place] [address] [facility] [address] [place] [address] Physical Medicine and Rehabilitation 01/24/22 documented as of this encounter
--- OUTSIDE RECORDS SUMMARY | 2025-03-11 11:17 | XMS_ITS | Clinical Summary ---
Author Organization [facility] Address [address] [place] [address] Care Team Providers Care Residential Tech Name Role Phone Saeed Carvalho MD Primary Care Provider [phone] Allergies Active Allergy Reactions Criticality Noted Date [...] Active vitamin D3, cholecalciferol , 1.25 MG (58159 UT) capsule 1 Active cloNIDine 0.1 MG [...] Encounter for health-related screening 12/22/2013 12/05/2021 Immunizations Immunization Administration Dates Next Due H1N1 2009 Influenza Vaccine 01/05/2010 Influenza (Generic) 07/27/2020,08/05/2019,2014 Influenza Adult (Generic) 08/02/2018,06/2017,07/27/2016,2013,07/29/2013 PFIZER COVID-19 (ORIGINAL FORMULATION, PURPLE CAP) mRNA, [...] CDT Gender Identity Male 11/28/2021 4:54 AM RUBBER SPLICER Sexual Orientation Garcia 11/28/2021 4: 54 AM RUBBER SPLICER Last Filed Vital Signs Vital Sign Reading [...] of 3 - 19+ 3-dose series) 1989 Pneumococcal Vaccine: 50+ Years (1 of 1 - PCV) 01/15/2020 COVID-19 Vaccine (4 - 2023- season) 2024 12/22/2020, 11/30/2020, 11/24/2020, Additional history exists PHQ-2 (Physician [place]) 10/29/2024 DTaP, Tdap and Td Vaccines (2 - [...] age to complete this topic [place] [id number] Care Teams Residential Tech Relationship Specialty Start Date End Date Saeed Carvalho MD [address] [place] [address] PCP - General 07/15/14
--- OUTSIDE RECORDS SUMMARY | 2025-03-11 11:17 | XMS_ITS | Encounter Summary ---
Author Organization [facility] Address [address] [place] [address] Care Team Providers Care Studio Technician Name Role Phone Saeed Carvalho MD Primary Care Provider [phone] Berny Borja MD Unavailable [phone] Encounter Details Date Type Department Care Team [...] PM CDT Legal Sex Male 5:49 PM NEONATAL SURGEON Gender Identity Male 07/21/2021 2:33 PM CDT [...] on filedocumented in this encounter Care Teams Studio Technician Relationship Specialty Start Date End Date Saeed Carvalho MD [address] [address] [address] [place] [address] PCP - General Family Medicine 11/15/17 [place] [address] [facility] [facility] [address] [place] [address] Physical Medicine and Rehabilitation 01/24/22 documented as of this encounter
--- OUTSIDE RECORDS SUMMARY | 2025-03-11 11:17 | XMS_ITS | Clinical Summary ---
Author Organization [facility] Address [address] [place] [address] Phone Care Team Providers Care Publication Designer Name Role Phone Saeed Carvalho MD Primary Care Provider [phone] Allergies Active Allergy Reactions Criticality Noted Date [...] Comments Blood Pressure 157/104 09/22/2019 11:51 AM SENIOR INTERACTION DESIGNER Pulse 82 09/22/2019 11:51 AM SENIOR INTERACTION DESIGNER Temperature 36.4 C (97.6 F) 07/23/2019 2:27 PM CDT Respiratory Rate 18 07/23/2019 2:27 PM CDT Oxygen Saturation 100% 07/23/2019 2:27 PM CDT Inhaled Oxygen Concentration - - Weight 104.3 kg (230 lb) 09/22/2019 11:51 AM SENIOR INTERACTION DESIGNER Height 180.3 cm (5' 11 ) 09/22/2019 11:51 AM SENIOR INTERACTION DESIGNER Body Mass Index 32.08 09/22/2019 11:51 AM SENIOR INTERACTION DESIGNER Plan of Treatment Health Maintenance Due Date Last Done Comments DTAP/TDAP/TD VACCINES (1 - Tdap) 1989 HEPATITIS B VACCINES (1 of 3 - 19+ 3-dose series) 12/27 COLORECTAL SCREENING 2015 Colorectal Cancer Screening 2015 FIT-DNA Q 3 years 2015 FIT/FOBT Q 1 year 2015 Flex Sig/CT Colonography Q 5 years 2015 ZOSTER VACCINE (1 of 2) 01/15/2020 INFLUENZA VACCINE (#1) [address] [facility] BLUE PREFERRED RX [facility] Commercial Advance Directives For more information, please contact: [phone] * Full Code (Latest Code Status on File) Date Activated Date Inactivated Comments 07/23/2019 1:22 PM 07/23/2019 4:43 PM * Full Code Date Activated Date Inactivated Comments 07/23/2019 1:20 PM 07/23/2019 1:22 PM * Full Code Date Activated Date Inactivated Comments 07/23/2019 11:15 AM 07/23/2019 1:20 PM Care Teams Publication Designer Relationship Specialty Start Date End Date Saeed Carvalho MD [address] [facility] [address] [place] [address] PCP - General Family Practice 06/25/19
--- OUTSIDE RECORDS SUMMARY | 2025-03-11 11:17 | XMS_ITS | Encounter Summary ---
Author Organization [facility] Address [address] [place] [address] Care Team Providers Care Epoxy Fabrication Supervisor Name Role Phone Saeed Carvalho MD Primary Care Provider [phone] Encounter Details Date Type Department Care Team (Late st Contact Info) Description 02/06/2023 [place] Feixiangren Information Technologyhart Message Enc [facility] Medical Group Multispecialty Care - [facility] [address] [facility] [place] [id number] Freeman Howard MD [address] [facility] [address] [place] [address] CAT SCAN Social History Tobacco Use Types [...] CDT Gender Identity Male 11/28/2021 4:54 AM PIN OR CLIP FASTENER Sexual Orientation Garcia 11/28/2021 4: 54 AM PIN OR CLIP FASTENER COVID-19 Exposure Response Date Recorded In the [...] Total Score: 0 11/29/19 22 2:07 PM PIN OR CLIP FASTENER documented as of this encounter Care Teams Epoxy Fabrication Supervisor Relationship Specialty Start Date End Date Saeed Carvalho MD [address] [facility] [address] [place] [address] PCP - General 07/15/14 documented as of this encounter
--- OUTSIDE RECORDS SUMMARY | 2025-03-11 11:17 | XMS_ITS | Encounter Summary ---
Author Organization [facility] Address [address] [place] [address] Care Team Providers Care Chemicals Distiller Name Role Phone Saeed Carvalho MD Primary Care Provider [phone] Encounter Details Date Type Department Care Team (Latest Contact Info) Description 09/03/2018 Abstract [facility] Medical Group , Barrera Thomson MD Social History Tobacco Use Types Packs/Day Years Used Date Smoking Tobacco: Never Assessed Sex and Gender Information Value Date Recorded Sex Assigned at Not on file Legal Sex Male 6:56 PM CDT Gender Identity Male 11/28/2021 4:54 AM TRAFFIC CHIEF Sexual Orientation Garcia 11/28/2021 4: 54 AM TRAFFIC CHIEF documented as of this encounter Plan of Treatment Not on file documented as of this encounter Visit Diagnoses Not on filedocumented in this encounter Care Teams Chemicals Distiller Relationship Specialty Start Date End Date Saeed Carvalho MD [address] [place] [address] PCP - General 07/15/14 documented as of this encounter
--- OUTSIDE RECORDS SUMMARY | 2025-03-11 11:17 | XMS_ITS | Encounter Summary ---
Author Organization [facility] Address [address] [place] [address] Care Team Providers Care Design Chief Name Role Phone Saeed Carvalho MD Primary Care Provider [phone] Encounter Details Date Type Department Care Team (Late st Contact Info) Description 02/08/2023 [place] Message Enc [facility] Medical Group Multispecialty Care - [facility] [address] [facility] [place] [phone] Freeman Howard MD [address] [facility] [address] [place] [address] Echocardiogram Social History Tobacco Use Types Packs/Day [...] CDT Gender Identity Male 11/28/2021 4:54 AM TITLE I TEACHER Sexual Orientation Garcia 11/28/2021 4: 54 AM TITLE I TEACHER COVID-19 Exposure Response Date Recorded In the [...] Total Score: 0 11/29/19 22 2:07 PM TITLE I TEACHER documented as of this encounter Care Teams Design Chief Relationship Specialty Start Date End Date Saeed Carvalho MD [address] [facility] [address] [place] [address] PCP - General 07/15/14 documented as of this encounter
--- OUTSIDE RECORDS SUMMARY | 2025-03-11 11:18 | XMS_ITS | Referral Summary ---
Author Organization [facility] Address [address] [place] [address] Care Team Providers Care Polisher And Sander Name Role Phone Saeed Carvalho MD Primary Care Provider Freeman Howard MD Unavailable [phone] Huey Morales MD Unavailable [phone] Allergies Active Allergy Reactions Criticality Noted Date Comments Buspirone Angioedema High 06/05/2013 Ciprofloxacin Anaphylaxis High 09/08/2019 Gemfibrozil Other (See comments) High 06/19/2018 Iron Anaphylaxis,Swelling High 11/19/2017 IV iron infusion caused throat to swell Methocarbamol Unknown,Hives Medium 09/10/2003 Oarubzk-Fnj-Jzf Reductase Inhibitors Other (See comments) Low 04/16/2014 [...] hydrOXYzine (ATARAX) 50 mg tablet 12/12/2023 Active loteprednol (LOTEMAX) 0.5 % ophthalmic suspension INSTILL 1 DROP INTO RIGHT EYE THREE TIMES DAILY 07/08/2024 Active Trulance 3 mg tablet 09/01/2024 Active dexlansoprazole (DEXILANT) 60 mg capsule 10/01/2024 Active Cartia XT 180 mg 24 hr capsule Take 1 capsule (180 mg total) by mouth daily 11/28/2024 Active rOPINIRole (REQUIP) 1 mg tablet 11/28/2024 Active loratadine (Allergy Relief, loratadine,) 10 mg tablet Take 1 tablet by mouth once daily 30 tablet 11 01/23/2025 Active Active Problems Problem Noted Date Diagnosed Date Restrictive lung disease 12/02/2024 Colitis 09/05/2024 Assessment & Plan (09/05/2024 9:47 AM SCIENTIST): Patient was seen in the ER February [...] 09/05/2024 Assessment & Plan (09/05/2024 9:47 AM SCIENTIST): Patient was having dysphagia, had an EGD a few days ago [facility]. No records available for review. -Obtain prior EGD records Family history of colon cancer 09/05/2024 Assessment & Plan (09/05/2024 9:48 AM SCIENTIST): Maternal grandmother had colon cancer. Mother had polyps. Per patient last colonoscopy 5 years ago was normal. Constipation 09/05/2024 Assessment & Plan (09/05/2024 9:48 AM SCIENTIST): Mild, chronic, intermittent. -High-fiber diet -MiraLax OTC p.r.n. 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 Cervicalgia 04/25/2021 Dysthymic disorder 04/19/2021 Gastroesophageal reflux disease 04/19/2021 Assessment & Plan (09/05/2024 9:47 AM SCIENTIST): Chronic GERD, well-controlled with omeprazole 20 mg [...] Free, IM (FLUBLOK) 09/18/2024 Influenza, Unspecified 07/27/2020,2018,08/02/2018,08/06,07/27/2016,08/29/2015,07/16/2014 ,08/29/2013,07/29/2013,09/03/2012,05/2011,09/17/2010,08/25/2009, 8,08/30/2007,07/29/2006,08/31/2005 Moderna SARS-CoV-2 Monovalen t Vaccination (12+ [...] on file Legal Sex Male 4:19 AM SCIENTIST Gender Identity Male 04/04/2023 4:30 PM CDT Sexual Orientation Garcia 04/04/2023 4: 30 PM CDT Last Filed Vital Signs Vital Sign Reading Time Taken Comments Blood Pressure 134/90 12/02/2024 10:03 AM SCIENTIST Pulse 98 12/02/2024 10:03 AM SCIENTIST Temperature 35.6 C (96.1 F) 12/02/2024 10:03 AM SCIENTIST Respiratory Rate 18 12/02/2024 10:03 AM SCIENTIST Oxygen Saturation 98% 12/02/2024 10:03 AM SCIENTIST Inhaled Oxygen Concentration - - Weight 112 kg (247 lb) 12/02/2024 10:03 AM SCIENTIST Height 177.8 cm (5' 10 ) 12/02/2024 10:03 AM SCIENTIST Body Mass Index 35.44 12/02/2024 10:03 AM SCIENTIST Plan of Treatment Not on file [facility] MA[facility] HAND[employer] [facility] [place] [address] [facility] HMO Care Teams Polisher And Sander Relationship Specialty Start Date End Date Saeed Carvalho MD [address] [facility] [address] [place] [address] PCP - General Family Medicine 12/08/21 Freeman Howard MD 3 [facility] [address] [place] [address] Pulmonary Disease 01/23/23 Huey Morales MD [facility] [address] [facility] [phone] [place] [address] Consulting Physician Pulmonary Disease 12/02/24
--- OUTSIDE RECORDS SUMMARY | 2025-03-11 11:18 | XMS_ITS | Clinical Summary ---
Author Organization [facility] [employer] Address [address] [facility] [place] [address] Care Team Providers Care Tow Driver Name Role Phone Saeed Carvalho MD Primary Care Provider [phone] Berny Borja MD Unavailable [phone] Source Comments [facility],non-owned Affiliates and Associated Physician Practices is amultiple site organization consisting of ambulatory clinics and hospital sitesin [place], [place], [place] and [place]. This disclosure is being madepursuant to the Care Everywhere program and may not contain all information available regarding this patient. Last updated 18.[facility] [employer] Allergies Active Allergy Reactions Criticality Noted Date [...] document. Alwaysverify current medications with the patient. lisinopril (PRINIVIL; ZESTRIL) 40 MG tablet Take [...] 1 mg by mouth at bedtime 1 9 Active propranolol (INDERAL) 20 MG tablet 2 times daily 9 Active famotidine (PEPCID) 20 MG tablet Take 20 mg by mouth at bedtime 9 Active rOPINIRole (REQUIP) 0.5 MG tablet Take 0.5 mg by mouth at bedtime Active ezetimibe (ZETIA) 10 MG tablet Take 10 mg by mouth once daily 1 Active diclofenac sodium (VOLTAREN) 1 % gel 2 Active albuterol HFA (Proventil; Ventolin; Proair) 108 (90 Base) MCG/ACT inhaler 2 Active Azelastine HCl 137 MCG/SPRAY SOLN 2 Active cyclobenzaprine (Flexeril) 10 MG tablet Take 1 (one) tablet by mouth 3 times daily as needed for Muscle Spasms 30 tablet 2 Active oxyCODONE, immediate release, (Roxicodone) 5 MG tablet Take 1 (one) tablet by mouth every 6 hours as needed for Pain 16 tablet 2 Active lidocaine (Lidoderm) 5 % patch Apply 1 (one) patch to skin once daily Apply patch to most painful area and remove after 12 hours. May reapply a new patch 12 hours later. 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 Cervicalgia 04/25/2021 Hypersomnia with sleep apnea 04/19/2021 Other and unspecified hyperlipidemia 04/19/2021 Vitamin D deficiency 04/19/2021 Idiopathic urticaria 04/19/2021 Dysthymic disorder 04/19/2021 Essential hypertension 04/19/2021 Gastroesophageal reflux disease 04/19/2021 Headache 04/19/2021 Cervical spondylosis with radiculopathy 04/19/20 Chronic left-sided low back pain with left-sided sciatica 12/01/2019 Immunizations Immunization Administration Dates Next Due Tribela TASS primary monoval ent 12+ yr 0.3mL Purple cap 12/22/2020,11/24/2020 INFLUENZA A [id number] VACCINE 01/05/2010 INFLUENZA VACCINE 08/29/2015 Zoster Hzv [...] PM CDT Legal Sex Male 5:49 PM RUBY ON RAILS SOFTWARE DEVELOPER Gender Identity Male 07/21/2021 2:33 PM CDT Sexual Orientation Garcia 07/21/2021 2: 33 PM CDT Last Filed Vital Signs Vital Sign Reading Time Taken Comments Blood Pressure 138/90 09/04/2022 2:37 PM RUBY ON RAILS SOFTWARE DEVELOPER Pulse 85 09/04/2022 2:37 PM RUBY ON RAILS SOFTWARE DEVELOPER Temperature 36.4 C (97.5 F) 09/04/2022 2:37 PM RUBY ON RAILS SOFTWARE DEVELOPER Respiratory Rate 20 08/25/2022 11:03 AM CDT Oxygen Saturation 94% 09/04/2022 2:37 PM RUBY ON RAILS SOFTWARE DEVELOPER Inhaled Oxygen Concentration 21% 08/22/2022 7 :10 PM CDT Weight 108.4 kg (239 lb) 09/04/2022 2:37 PM RUBY ON RAILS SOFTWARE DEVELOPER Height 180.3 cm (5' 11 ) 09/04/2022 2:37 PM RUBY ON RAILS SOFTWARE DEVELOPER Body Mass Index 33.33 09/04/2022 2:37 PM RUBY ON RAILS SOFTWARE DEVELOPER Plan of Treatment Health Maintenance Due Date [...] 2) 09/02/2020 07/08/2020 COVID-19 VACCINE (3 - season) 2024 12/22/2020, 11/24/2020 DEPRESSION SCREENING 10/29/2024 INFLUENZA VACCINE (Season Ended) 2025 07/27/2020, 08/05/2019, 08/02/2018, Additional history exists SCREENING FOR DIABETES 08/24/2025 , 08/23/2022, 08/23/2022, Additional history exists HIB VACCINE [...] this topic Medical Devices Implanted Type Area Sulfide Head Operator Device Identifier Shelf Expiration Date Model / Serial / Lot Graft Bone Grftn Dbm 5x2.5cm - [id number] Implanted:Qty : 1 on 12/01/2019 by Huey Chavarria MD at [facility] Spine Lumbar [employer] Inc 07/10/2022 [id number] / [id number] / Screw 7.5mm 50mm 2 Ld Thrd Frm Ma Clr Cd Implanted:Qty : 4 on 12/01/2019 by Huey Chavarria MD at [facility] Spine Lumbar Medtronic Inc [id number] / / Spcr Spnl [id number] Cpstn Peek-Optm Slf Implanted:Qty : 1 on 12/01/2019 by Huey Chavarria MD at [facility] Spine Medtronic Sofamor Danek Inc 07/15/2027 [id number] / / [id number] Reagan Spnl 35mm 4.75mm Cd Hzn Solera Crv Implanted:Qty : 1 on 12/01/2019 by Huey Chavarria MD at [facility] Spine Medtronic Inc [id number] / / Screw Set Ti 4.75mm Spne Nonster Implanted:Qty : 4 on 12/01/2019 by Huey Chavarria MD at [facility] Spine Medtronic Sofamor [employer]anek Inc [id number] / / Reagan Spnl 30mm 4.75mm Cd Hzn Solera Crv Implanted:Qty : 1 on 12/01/2019 by Huey Chavarria MD at [facility] Spine Medtronic Inc [id number] / / Screw 3.6mm 14mm Fx Ang Slf Drl Spne Implanted:Qty : 1 on 04/19/2020 by Huey Chavarria MD at [facility] Spine Cervical [employer] [id number] / / Graft Bone Alfs Dbm 5ml Gel Implanted:Qty : 1 on 04/19/2020 by Huey Chavarria MD at [facility] [employer] 06/14/2022 [id number] / / [id number] Spacer Implanted:Qty : 1 on 04/19/2020 by Huey Chavarria MD at [facility] Spine Cervical [id number] / / Screw 3.6mm 14mm Std Va Slf Drl Spne Implanted:Qty : 1 on 04/19/2020 by Huey Chavarria MD at [facility] Spine Cervical [employer] [id number] / / Graft Bone Alfs Dbm 1ml Gel Implanted:Qty : 1 on 04/25/2021 by Huey Chavarria MD at [facility] Spine Cervical [employer] 05/08/2023 [id number] / / [id number] Spcr Spnl 16x8mm Coalition 7d Lrdtc 14mm Implanted:Qty : 1 on 04/25/2021 by Huey Chavarria MD at [facility] Spine Cervical [employer] [id number] / / Screw 3.6mm 14mm Fx Ang Slf Drl Spne Implanted:Qty : 1 on 04/25/2021 by Huey Chavarria MD at [facility] Spine Cervical [facility] 184.174 / / Screw 3.6mm 16mm Slfdrl Va Spne Bone Implanted:Qty : 1 on 04/25/2021 by Huey Chavarria MD at [facility] Spine Cervical [facility] 184.156 / / Sys Impl 1.9mm Fibertak Biceps Cody Implanted:Qty : 1 on 06/16/2021 by Katty Toussaint MD at [facility] Right: Shoulder Ar[employer]rex Inc 03/28/2026 [id number] / / [id number] Procedures Procedure Name Priority Date/Time Associated Diagnosis Comments BASIC METABOLIC PANEL (CALCIUM TOTAL) Timed 08/24/2022 11:58 PM CDT Diaphragm paralysis from Last 3 Months or Most Recently Relevant to Health Maintenance Results * (ABNORMAL) BASIC METABOLIC PANEL (CALCIUM TOTAL) (08/24/2022 11:58 PM [facility]) BUN 11 7 - 26 mg/dL 08/25/2022 12:36 AM [facility] Creatinine 1.32(H) 0.71 - 1.16 mg/dL 08/25/2022 12:36 AM [facility] Sodium 138 136 - 145 mmol/L 08/25/2022 12:36 AM [facility] Potassium 4.0 3.5 - 4.5 mmol/L 08/25/2022 12:36 AM [facility] Chloride 103 98 - 107 mmol/L 08/25/2022 12:36 AM [facility] CO2 26 22 - 29 mmol/L 08/25/2022 12:36 AM [facility] Glucose 115 70 - 115 mg/dL 08/25/2022 12:36 AM [facility] Calcium 9.0 8.4 - 10.2 mg/dL 08/25/2022 12:36 AM [facility] Anion Gap 13 8 - 18 08/25/2022 12:36 AM [facility] BUN/Creatinine Ratio 8 7 - 23 08/25/2022 12:36 AM [facility] Osmolality Calculated 286 270 - 300 mOsm/kg 08/25/2022 12:36 AM [facility] eGFR by CKD-EPI 65(L) >=90 mL/min/1.7 3 m2 08/25/2022 12:36 AM [facility] Blood BLOOD SPECIMEN / Unknown Lab Venipuncture / Unknown 08/24/2022 11:58 PM T 08/25/2022 12:09 AM [facility] us Jerson Villeda MD LAB - CHEMISTRY ORDER BEATRIZ Final Result [facility] [address] [place] [address], [facility] [phone] from Last 3 Months or Most Recently Relevant to Health Maintenance Insurance [employer] SELF PAY NO INSURANCE Member Subscriber Plan / Payer (Ef fective for All Dates) Name:Sunny Valero Member ID:Not on file Relation to Subscriber:Not on file Name:SUNNY VALERO Subscriber ID:Not on file (Home) Address: [facility] [place] [address] Payer ID:Not on file Group ID:Not on file Type:Self Pay Address: [place], [place] Advance Directives * Full Code (Latest Code [...] 7:36 PM 12/02/2019 6:05 PM Care Teams Tow Driver Relationship Specialty Start Date End Date Saeed Carvalho MD [address] [address] [address] [place] [address] PCP - General Family Medicine 11/15/17 [place] [address] [facility] [address] [place] [address] Physical Medicine and Rehabilitation 01/24/22
--- OUTSIDE RECORDS SUMMARY | 2025-03-11 11:18 | XMS_ITS | Clinical Summary ---
Author Organization [facility] Address [address] [place] [address] Care Team Providers Care Air Reduction Equipment Operator Name Role Phone Saeed Carvalho MD Primary Care Provider Freeman Howard MD Unavailable [phone] Huey Morales MD Unavailable [phone] Allergies Active Allergy Reactions Criticality Noted Date Comments Buspirone Angioedema High 06/05/2013 Ciprofloxacin Anaphylaxis High 09/08/2019 Gemfibrozil Other (See comments) High 06/19/2018 Iron Anaphylaxis,Swelling High 11/19/2017 IV iron infusion caused throat to swell Methocarbamol Unknown,Hives Medium 09/10/2003 Sexqdrv-Uxb-Jym Reductase Inhibitors Other (See comments) Low 04/16/2014 [...] 09/05/2024 Assessment & Plan (09/05/2024 9:47 AM OPERATIONS LOGISTICS ANALYST): Patient was seen in the ER February [...] 09/05/2024 Assessment & Plan (09/05/2024 9:47 AM OPERATIONS LOGISTICS ANALYST): Patient was having dysphagia, had an EGD a few days ago [facility]. No records available for review. -Obtain prior EGD records Family history of colon cancer 09/05/2024 Assessment & Plan (09/05/2024 9:48 AM OPERATIONS LOGISTICS ANALYST): Maternal grandmother had colon cancer. Mother had polyps. Per patient last colonoscopy 5 years ago was normal. Constipation 09/05/2024 Assessment & Plan (09/05/2024 9:48 AM OPERATIONS LOGISTICS ANALYST): Mild, chronic, intermittent. -High-fiber diet -MiraLax OTC p.r.n. 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 Cervicalgia 04/25/2021 Dysthymic disorder 04/19/2021 Gastroesophageal reflux disease 04/19/2021 Assessment & Plan (09/05/2024 9:47 AM OPERATIONS LOGISTICS ANALYST): Chronic GERD, well-controlled with omeprazole 20 mg [...] on file Legal Sex Male 4:19 AM OPERATIONS LOGISTICS ANALYST Gender Identity Male 04/04/2023 4:30 PM CDT Sexual Orientation Garcia 04/04/2023 4: 30 PM CDT Obstetrics History Last Filed Vital Signs Vital Sign Reading Time Taken Comments Blood Pressure 134/90 12/02/2024 10:03 AM OPERATIONS LOGISTICS ANALYST Pulse 98 12/02/2024 10:03 AM OPERATIONS LOGISTICS ANALYST Temperature 35.6 C (96.1 F) 12/02/2024 10:03 AM OPERATIONS LOGISTICS ANALYST Respiratory Rate 18 12/02/2024 10:03 AM OPERATIONS LOGISTICS ANALYST Oxygen Saturation 98% 12/02/2024 10:03 AM OPERATIONS LOGISTICS ANALYST Inhaled Oxygen Concentration - - Weight 112 kg (247 lb) 12/02/2024 10:03 AM OPERATIONS LOGISTICS ANALYST Height 177.8 cm (5' 10 ) 12/02/2024 10:03 AM OPERATIONS LOGISTICS ANALYST Body Mass Index 35.44 12/02/2024 10:03 AM OPERATIONS LOGISTICS ANALYST Plan of Treatment Health Maintenance Due Date [...] patient's age to complete this topic Insurance [facility] Address: [address] [place] [address] MAIL HANDLERS [facility] [employer] HMO Care Teams Air Reduction Equipment Operator Relationship Specialty Start Date End Date Saeed Carvalho MD [address] [place], [place] [id number] PCP - General Family Medicine 12/08/21 Freeman Howard MD 3 [facility] [address] [place] [address] Pulmonary Disease 01/23/23 Huey Morales MD [address] [facility] [phone] [place] [address] Consulting Physician Pulmonary Disease 12/02/24
--- OUTSIDE RECORDS SUMMARY | 2025-03-11 11:18 | XMS_ITS | Encounter Summary ---
Author Organization [facility] Address [address] [place] [address] Phone Care Team Providers Care Collections Analyst Name Role Phone Saeed Carvalho MD Primary Care Provider Freeman Howard MD Unavailable [phone] Huey Morales MD Unavailable [phone] Encounter Details Date Type Department Care Team [...] file Legal Sex Male 4:19 AM SENIOR AGRICULTURAL ASSISTANT Gender Identity Male 04/04/2023 4:30 PM CDT [...] Suspected 12/02/2024 12/02/2024 12/02/2024 6:02 PM SENIOR AGRICULTURAL ASSISTANT documented as of this encounter Care Teams Collections Analyst Relationship Specialty Start Date End Date Saeed Carvalho MD [address] [place] [address] PCP - General Family Medicine 12/08/21 Freeman Howard MD 3 [facility] [address] [place] [address] Pulmonary Disease 01/23/23 Huey Morales MD [facility] [address] [facility] [phone] [place] [address] Consulting Physician Pulmonary Disease 12/02/24 documented as of this encounter
--- OUTSIDE RECORDS SUMMARY | 2025-03-11 11:18 | XMS_ITS | Encounter Summary ---
Author Organization [facility] Address [address] [address] [facility] [place] [address] Care Team Providers Care Roving Department End Finder Name Role Phone Saeed Carvalho MD Primary Care Provider Berny Borja MD Unavailable [phone] Encounter Details Date Type Department Care Team [...] PM CDT Legal Sex Male 5:49 PM TAX COMPLIANCE AGENT Gender Identity Male 07/21/2021 2:33 PM CDT Sexual Orientation Garcia 07/21/2021 2: 33 PM CDT documented as of this encounter Plan of Treatment Not on file documented as of this encounter Visit Diagnoses Not on filedocumented in this encounter Care Teams Roving Department End Finder Relationship Specialty Start Date End Date Saeed Carvalho MD [address] [facility] [address] [place] [address] PCP - General Family Medicine 11/15/17 [place] [address] [place] [address] Physical Medicine and Rehabilitation 01/24/22 documented as of this encounter
--- OUTSIDE RECORDS SUMMARY | 2025-03-11 11:18 | XMS_ITS | CONTINUITY OF CARE DOCUMENT ---
Author Name carey, carey Address Unknown Organization [facility] Address [address] [place] [address] Phone [phone] Care Team Providers Care Plisse Machine Operator Helper Name Role Phone Wero Fiore MD Unavailable [phone] SUSANA GRAY, SAEED Unavailable [phone] SAEED MEZA MD Unavailable PROBLEMS Condition Status Date [...] Simon MD Nocturia active Amilcar Simon MD KAMILAH, on mouthguard active Wero Fiore MD Dyspnea on exertion active Wero Peoples ENCOUNTERS Date Type Provider Location Encounter Diag nosis - In-person encounter Office Visit Wero Fiore MD [facility] - In-person encounter Office Visit Wero Fiore MD [facility] KAMILAH, on mouthguardDyspnea on exertion - In-person encounter Office Visit Amilcar Simon MD [facility] - In-person encounter Office Visit Amilcar Simon MD [facility] HTN essential;neg dupelxPVC's - In-person encounter Office Visit Amilcar Simon MD [facility] PTSDr/o SLEEP APNEA;neg study per ptInsomniaNocturia - In-person encounter Office Visit Amilcar Simon MD [facility] Screening - In-person encounter Office Visit Amilcar Simon MD [facility] PREDIABETESDiastolic dysfunction - In-person encounter Office Visit Amilcar Simon MD [facility] HTN essential;neg dupelxHyperlipidemiaPTSDGERDrestless leg syndromePVC'sObesityScreeningr/o SLEEP APNEA;neg study per pt VITAL SIGNS Date Observation Value Provider Body Mass Index (Ratio) 35.70 kg/m2 Abdiaziz Mcclain blood pressure, diastolic 102 mm[Hg] Daisha Michele blood pressure, systolic 142 mm[Hg] María Michele oxygen saturation, oximetry 96 % Jill Michele pulse rate 77 /min Jill Michele respiratory rate E&M 12 /min Jill Michele weight E&M 256 [lb_av] Jill Michele height E&M 71 [in_i] Jill Michele blood pressure, cuff size regular Daisha Michele Body Mass Index (Ratio) 35.14 kg/m2 Lucio silvano Firoe MD blood pressure, cuff size large Peyman rri Sharleneelddarek blood pressure, diastolic 104 mm[Hg] Ke rri Gruenenfelder blood pressure, systolic 124 mm[Hg] Della ri Sharlenethalia oxygen saturation, oximetry 96 % Radha Sharleneelder pulse rate 74 /min Radha Isabelnfe lder weight E&M 252 [lb_av] Radha Jamilnenfe lder height E&M 71 [in_i] Radha Gruenenfe lder Body Mass Index (Ratio) 33.47 kg/m2 Trey Simon MD blood pressure, diastolic 106 mm[Hg] Cy blair Christiansen blood pressure, systolic 147 mm[Hg] Shanna Christiansen respiratory rate E&M 16 /min Galina Christiansen pulse rate 82 /min Galina velasquez oxygen saturation, oximetry 98 % Galina Christiansen weight E&M 240 [lb_av] Galina Paula l blood pressure, cuff size regular Cy blair Christiansen height E&M 71 [in_i] Galina Campbel l temperature site temporal Hilaria Tank sley temperature E&M 95.5 [degF] Hilaria Tanks jamar Body Mass Index (Ratio) 33.47 kg/m2 Trey Simon MD blood pressure, cuff size regular Cy blair Christiansen blood pressure, diastolic 80 mm[Hg] Cy blair Christiansen blood pressure, systolic 130 mm[Hg] Shanna Christiansen oxygen saturation, oximetry 98 % Galina Christiansen respiratory rate E&M 16 /min Galina Christiansen pulse rate 80 /min Galina Braydonbel l weight E&M 240 [lb_av] Galina Campbel l height E&M 71 [in_i] Galina Campbel l Body Mass Index (Ratio) 33.47 kg/m2 Trey Simon MD blood pressure, cuff size regular Cy blair Christiansen blood pressure, diastolic 70 mm[Hg] Cy ntariela Christiansen blood pressure, systolic 128 mm[Hg] Shanna kylah Christiansen oxygen saturation, oximetry 99 % Galina Christiansen respiratory rate E&M 16 /min Galinakylah Christiansen pulse rate 79 /min Galina Braydonbel l weight E&M 240 [lb_av] Galina Braydonbel l height E&M 71 [in_i] Galina Braydonbel l Body Mass Index (Ratio) 34.17 kg/m2 Trey Simon MD oxygen saturation, oximetry 98 % Galina Christiansen respiratory rate E&M 18 /min Galinakylah Christiansen pulse rate 85 /min Galinakylah velasquez blood pressure, cuff size regular Cy blair Christiansen blood pressure, diastolic 80 mm[Hg] Cy blair Christiansen blood pressure, systolic 124 mm[Hg] Shanna kylah Christiansen weight E&M 245 [lb_av] Galina Braydonbel l height E&M 71 [in_i] Galina Braydonbel l Body Mass Index (Ratio) 33.33 kg/m2 Trey Simon MD blood pressure, cuff size regular Ke rri Chasity blood pressure, diastolic 101 mm[Hg] Ke rri Chasity blood pressure, systolic 147 mm[Hg] Della Gaspar oxygen saturation, oximetry 98 % Radha Gaspar respiratory rate E&M 16 /min Radha Seay anayelijagdishthalia pulse rate 68 /min Radha [facility] weight E&M 239 [lb_av] Radha Llamas er height E&M 71 [in_i] Radha [facility] blood pressure, diastolic 88 mm[Hg] Be tsy Suero blood pressure, systolic 142 mm[Hg] Bet sy Suero Body Mass Index (Ratio) 32.35 kg/m2 [facility] ta Demecs RN blood pressure, cuff size regular duane Demecs RN blood pressure, diastolic 90 mm[Hg] duane Demecs RN blood pressure, systolic 140 mm[Hg] [facility] sta Demecs RN oxygen saturation, oximetry 99 % Campo Demecs RN respiratory rate E&M 16 /min Campo Demecs RN pulse rate 89 /min Rama Demecs R N weight E&M 232 [lb_av] Rama Demecs R N Body Mass Index (Ratio) 32.07 kg/m2 Trey Simon MD blood pressure, resting Yes Iesh a [place] blood pressure, diastolic 90 mm[Hg] Ie giovanna [place] blood pressure, systolic 120 mm[Hg] Ies scar [place] oxygen saturation, oximetry 98 % Leigha [place] respiratory rate E&M 16 /min Leigha W fabián pulse rate 110 /min Leigha [place] weight E&M 230 [lb_av] Leigha [place] height E&M 71 [in_i] Leigha [place] ALLERGIES Allergy Name Onset Date Reaction Criticality Status HYDROCHLOROTHIAZIDE lip, neck sweling High Crit icality active TOPAMAX Low Criticality active LOPID High Criticality active CRESTOR High Criticality active FERAHEME Low Criticality active STATINS myalgias myalgias Low Criticality ac tive SIMVASTATIN muscle weakness t ongue swelling o marcela heats Low Criticality active BACTRIM pt ended up in the ER Low Criticalit y active RESULTS Date Observation Value Provider Reference Range Interpretation Location 0 apolipoprotein B, serum 121 mg/dL [facility] <90 High 9 lipoprotein, beta, serum, point, quantitative, calculated 140 mg/dL [facility] 0-99 High 9 HDL cholesterol, serum 40 mg/dL [facility] >39 9 triglyceride, serum, random 136 mg/dL [facility] 0-149 9 cholesterol, serum 205 mg/dL [facility] 100-199 High 9 ferritin, serum 201 ng/mL [facility] 30-400 [...] Estab. 8 platelet count 326 X10E3/UL [facility] 326-202 4967/06/1 8 red blood cell distribution width 13.1 [...] 3.5-5.2 8 sodium, serum 140 mmol/L [facility] 435-606 1555/06/1 8 urea nitrogen/creatinine ratio, serum 12 [facility] [...] [facility] 1 platelet count 316 X10E3/UL [facility] [phone]/02/0 1 red blood cell distribution width 14.2 [...] 3.5-5.2 1 sodium, serum 142 mmol/L [facility] 734-906 3071/02/0 1 urea nitrogen/creatinine ratio, serum 8 [facility] 9-20 Low 1 eGFR if not 72 mL/min/{1 .73_m2} [facility] >59 1 creatinine, serum 1.20 mg/dL [facility] 0.76-1.27 1 urea nitrogen, blood 10 mg/dL [facility] 6-24 1 blood glucose, random 105 mg/dL [facility] 65-99 High HISTORY OF MEDICATION USE Medication Status Instructions Dates Provider Indications Com ments Nexlizet 180-10 mg tablet active Take 1 tablet by mouth once a day 03/09 Wero Fiore MD hydralazine 50 mg tablet active Take 1 tablet by mouth twice a day 02/09 Yevgeniy Mcclain loratadine 10 mg tablet active TAKE 1 TABLET BY MOUTH ONCE DAILY Radha Gaspar clonazepam 1 mg tablet active Radha Gaspar dexlansoprazole 60 mg capsule,biphase delayed releas active take 1 pill a day Radha Gaspar diltiazem HCl (Cardizem CD) 180 mg capsule,extended release 24hr active TAKE 1 CAPSULE BY MOUTH ONCE A DAY TAKE 1 CAPSULE BY MOUTH EVERY DAY Radha Gaspar ezetimibe 10 mg tablet completed TAKE 1 TABLET BY MOUTH EVERY DAY - 03/09 Wero Fiore MD fenofibrate 160 mg tablet active Take 1 tablet by mouth once a day Radha Gaspar paroxetine HCl 40 mg tablet active take 1 pill a day Radha Gaspar propranolol 20 mg tablet active take 1 pill twice a day Radha Gaspar ropinirole 1 mg tablet active take 1 pill at bedtime Radha Gaspar Trulance 3 mg tablet active take 1 pill a day Radha Gaspar valsartan 320 mg tablet active Take 1 tablet by mouth once a day Radha Gaspar pantoprazole 40 mg tablet,delayed release (DR/EC) completed Take 1 tablet by mouth twice daily 11/20 - 02/09 Radha Gaspar metformin 500 mg tablet completed 1 tablet by mouth once a day 04/16 - 02/09 Radha Gaspar cholecalciferol (vitamin D3) 1,250 mcg (50,000 unit) capsule completed 1 capsule by mouth once a week 04/16 - 02/09 Radha Gaspar Repatha SureClick 140 mg/mL pen injector completed Inject subcutaneously every two weeks 04/16 - 02/09 Radha Gaspar Vitamin B-12 1,000 mcg tablet completed 1 tablet by mouth once a day 04/16 - 02/09 aRdha Gaspar hydrochlorothiaz kirit 25 mg tablet completed 1 tablet by mouth once a day 04/15 - 02/09 Radha Gaspar clonazepam 0.5 mg tablet completed Take 2 tablet by mouth every night 11/11 - 02/09 Radha Hallxeniaer #60, 30 days supply, Prescribed by PRANAV GRANT, Filled 02/08/2020 quetiapine 50 mg tablet completed Take 1 tablet by mouth every night 02/24 - 02/09 Radha Suesperanzaer #30, 30 days supply, Prescribed by PRANAV GRANT, Filled 02/25/2020 hydrocodone-acet aminophen 5-325 mg tablet completed Take 1 tablet by mouth every eight hours as needed 03/04 - 02/09 Radha Suesperanzaer #21, 7 days supply, Prescribed by EVY [...] 04/15 Christina Solano NP VITAMIN D (ERGOCALCIFEROL) 43139 UNIT ORAL CAPSULE completed one capsule by [...] 05/02 Galina Christiansen fenofibrate 160 mg tablet completed Take 1 tablet by mouth once a day 06/19 - 02/09 Radha Gaspar LOPID 600 MG ORAL TABLET completed twice a day 02/13 - 06/19 Galina Kuldip TOPAMAX 50 MG ORAL TABLET completed daily 02/13 - 06/19 Galina Kuldip LOMAIRA 8 MG ORAL TABLET completed one a day 02/13 - 06/19 Galina Kuldip COREG 12.5 MG ORAL TABLET completed ONE TAB. TWICE DAILY 02/13 - 06/19 Galina Kuldip FEOSOL TABLET completed daily 02/13 - 06/19 Galina Christiansen VITAMIN D3 86207 UNIT ORAL TABLET completed TAKE ONE TAB BY MOUTH WEEKLY 02/13 - 06/19 Galina Kuldip CRESTOR 20 MG ORAL TABLET completed Take One Once a Day. 12/08 - 12/15 Rama Wood RN CRESTOR 10 MG ORAL TABLET completed ONE TAB. DAILY 12/03 - 12/08 Chirag Monte RN let him know this replaces the fenofibate VITAMIN D3 55357 UNIT ORAL CAPSULE completed one a week 12/03 - 02/13 Radha Gaspar let him know his d is low and he is a prediabetic CYANOCOBALAMIN 1000 MCG/ML INJECTION SOLUTION completed [facility] 12/03 - 06/19 Galina Christiansen LINZESS 290 MCG ORAL CAPSULE completed prn 11/21 - 06/19 Galina Christiansen CLONAZEPAM 2 MG ORAL TABLET completed once in the evening 11/21 - 04/15 Amilcar Simon MD ropinirole 0.25 mg tablet completed 2 tablet by mouth once a day 11/21 - 02/09 Radha Gaspar propranolol 20 mg tablet completed Take 1 tablet by mouth twice a day 03/02 - 02/09 Radha Gaspar FENOFIBRATE 160 MG ORAL TABLET completed once in the morning 11/21 - 12/03 Amilcar Simon MD lisinopril 40 mg tablet completed tablet by mouth once a day 11/21 - 02/09 Radha Gaspar Paxil 40 mg tablet completed 2 tablet by mouth once a day 11/21 - 02/09 Radha Gaspar pantoprazole 40 mg tablet,delayed release (DR/EC) completed twice daily 11/21 - 11/20 Amilcar Simon MD SOCIAL HISTORY Date Observation Value Provider number of grandchildren Wero Fiore MD smoking status Never smoker Wero lemon MD smoking status Never smoker Wero lemon MD smoking status Never smoker Galina hernandez social history E&M S moking History: P jaylon has never smoked. Amilcar Simon MD social history reviewed E&M revi ewed - no changes required Amilcar Simon MD smoking status Never smoker Galina hernandez social history E&M S moking History: P jalyon has never smoked. Amilcar Simon MD social history reviewed E&M revi ewed - no changes required Amilcar Simon MD smoking status Never smoker Galina hernandez social history E&M Smoking Histo ry: Rhoda iyer has never smoked. Christina Gonzalez NP social history reviewed E&M revi ewed - no changes required Christina Gonzalez NP smoking status Never smoker Galina hernandez social history E&M S moking History: P jaylon has never smoked. Amilcar Simon MD social history reviewed E&M revi ewed - no changes required Amilcar Simon MD smoking status Never smoker Radha hidalgo smoking status Never smoker Zoila Suero social history E&M S moking History: hRoda iyer has never smoked. Amilcar Simon MD social history reviewed E&M revi ewed - no changes required Amilcar Simon MD smoking status Never smoker Leighaxochilt Alvarez ton FUNCTIONAL STATUS Date Observation Value Provider [...] Payer name Policy type / Coverage type Susanne red green party ID Aetna Choice Pos II [employer] insurance linkedFA [id number] ADVANCE DIRECTIVES Name Date POWER OF TALENT DEVELOPMENT ANALYST TREATMENT PLAN Date Name Performer Cardiology Yevgeniy Mcclain Cardiology: T he following medications were removed from the medication list: Ezetimibe 10 Mg Tablet (Ezetimibe) ..... Take 1 tablet by mouth every day His updated medication list for this problem includes: Nexlizet 180-10 Mg Tablet (Bempedoic acid-ezetimibe) ..... Take 1 tablet by mouth once a day Fenofibrate 160 Mg Tablet (Fenofibrate) ..... Take 1 tablet by mouth once a day Yevgeniy Mcclain Cardiology:This visi t has been a part of the consistent, comprehensive, and ongoing management of the chronic medical condition(s) listed above for the patient. B P today: 142/102 P rior BP: 124/104 (02/09/2025) Prior 10 Yr Risk Heart Disease: Not enough information (01/12/2017) Labs Reviewed: C reat: 1.55 (04/15/2019) C hol: 205 (02/14/2025) HDL: 40 (02/14/2025) LDL: 140 (02/14/2025) T (02/14/2025) His updated medication list for this problem includes: Hydralazine 50 Mg Tablet (Hydralazine) ..... Take 1 tablet by mouth twice a day Hydralazine 50 Mg Tablet (Hydralazine) ..... Take 1 tablet by mouth twice a day Diltiazem Hcl (cardizem Cd) 180 Mg Capsule,extended Release 24hr (Diltiazem hcl (cardizem cd)) ..... Take 1 capsule by mouth once a day take 1 capsule by mouth every day Propranolol 20 Mg Tablet (Propranolol) ..... Take 1 pill twice a day Valsartan 320 Mg Tablet (Valsartan) ..... Take 1 tablet by mouth once a day Yevgeniy Mcclain Cardiology Yevgeniy Mcclain Cardiology Wero Peoples Cardiology Wero Peoples Cardiology Wero Peoples Cardiology Wero Peoples Cardiology: T he following medications were removed from the medication list: Hydrochlorothiazide 25 Mg Tablet (Hydrochlorothiazide) ..... 1 tablet by mouth once a day Propranolol 20 Mg Tablet (Propranolol) ..... Take 1 tablet by mouth twice a day Lisinopril 40 Mg Tablet (Lisinopril) ..... Tablet by mouth once a day His updated medication list for this problem includes: Hydralazine 25 Mg Tablet (Hydralazine) ..... Take 1 tablet by mouth twice a day Diltiazem Hcl (cardizem Cd) 180 Mg Capsule,extended Release 24hr (Diltiazem hcl (cardizem cd)) ..... Take 1 capsule by mouth once a day take 1 capsule by mouth every day Propranolol 20 Mg Tablet (Propranolol) ..... Take 1 pill twice a day Valsartan 320 Mg Tablet (Valsartan) ..... Take 1 tablet by mouth once a day Wero Fiore MD Cardiology: T he following medications were removed from the medication list: Repatha Sureclick 140 Mg/ml Pen Injector (Evolocumab) ..... Inject subcutaneously every two weeks Fenofibrate 160 Mg Tablet (Fenofibrate) ..... Take 1 tablet by mouth once a day His updated medication list for this problem includes: Ezetimibe 10 Mg Tablet (Ezetimibe) ..... Take 1 tablet by mouth every day Fenofibrate 160 Mg Tablet (Fenofibrate) ..... Take 1 tablet by mouth once a day [id number]|2025-03-11 11:17:00|2025-03-11 11:17:00|XMS_ITS|SOLIS MANJARREZ|External Medical Summaries|[id number]|" Encounter Summary Created on: March 11, 2025 Bradley Sunny Bustamante : 1970 Sex: Male Author Organization [facility] Address [address] [place] [address] Care Team Providers Care Plisse Machine Operator Helper Name Role Phone Saeed Meza MD Primary Care Provider [phone] Berny Borja MD Unavailable [phone] Encounter Details Date Type Department Care Team (Late st Contact Info) Description 04/07/2021 [facility] DEPT Unknown, Provider Social History Tobacco Use Types Packs/Day Years Used Date Smoking Tobacco: Never Smokeless Tobacco: Never Alcohol Use Standard Drinks/Week Comments Yes 2 (1 standard drink = 0.6 oz pur e alcohol) Sex and Gender Information Value Date Recorded Sex Assigned at Male 07/21/2021 2:33 PM CDT Legal Sex Male 5:49 PM BARGE CAPTAIN Gender Identity Male 07/21/2021 2:33 PM CDT Sexual Orientation Garcia 07/21/2021 2: 33 PM CDT COVID-19 Exposure Response Date Recorded [...] on filedocumented in this encounter Care Teams Plisse Machine Operator Helper Relationship Specialty Start Date End Date Saeed Meza MD [address] [address] [address] [place] [address] PCP - General Family Medicine 11/15/17 [place] [address] [address] [place] [address] Physical Medicine and Rehabilitation 01/24/22 documented as of this encounter "
--- OUTSIDE RECORDS SUMMARY | 2025-03-11 11:20 | XMS_ITS | CONTINUITY OF CARE DOCUMENT ---
Author Name carey, carey Address Unknown Organization [facility] Address [address] [place] [address] Phone [phone] Care Team Providers Care Echocardiograph Technician Name Role Phone Adebayo GRAY, Wero Unavailable SUSANA GRAY, EVONNE Unavailable EVONNE MEZA MD Unavailable PROBLEMS Condition Status Date Provider Notes Hypertriglyceridemia active Amilcar Peoples IRON DEFICIENCY active Amilcar Simon MD B12 deficiency active Amilcar Simon MD Vitamin D deficiency active Amilcar Peoples restless leg syndrome active Amilcar Simon MD PVC's completed - Amilcar Simon MD NEG TSH r/o SLEEP APNEA;neg study per pt completed - Amilcar Simon MD Dyspnea on exertion active Wero Peoples KAMILAH, on mouthguard active Wero Fiore MD Nocturia active Amilcar Simon MD Insomnia active Amilcar Simon MD Diastolic dysfunction active Amilcar Simon MD PREDIABETES active Amilcar Simon MD Screening active Amilcar Simon MD Obesity active Amilcar Simon MD GERD active Amilcar Simon MD PTSD active Amilcar Simon MD Hyperlipidemia active Amilcar Simon MD HTN essential;neg dupelx active Amilcar monet MD ENCOUNTERS Date Type Provider Location Encounter Diag nosis - In-person encounter Office Visit Wero Fiore MD [facility] - In-person encounter Office Visit Wero Fiore MD [facility] KAMILAH, on mouthguardDyspnea on exertion - In-person encounter Office Visit Amilcar Simon MD [facility] - In-person encounter Office Visit Amilcar Simon MD [facility] HTN essential;neg dupelxPVC's - In-person encounter Office Visit Amilcar Simon MD [facility] PTSDr/o SLEEP APNEA;neg study per ptInsomniaNocturia - In-person encounter Office Visit Amilcar Simon MD [facility] Screening - In-person encounter Office Visit Amilcar Simon MD [facility] PREDIABETESDiastolic dysfunction - In-person encounter Office Visit Amilcar Simon MD [facility] Office HTN essential;neg dupelxHyperlipidemiaPTSDGERDrestless leg syndromePVC'sObesityScreeningr/o SLEEP [...] Jill Michele blood pressure, cuff size regular An iyah Michele Body Mass Index (Ratio) 35.14 kg/m2 Lucio silvano Fiore MD blood pressure, cuff size large Peyman [...] anayelijagdishthalia pulse rate 68 /min Radha Llamas [facility] weight E&M 239 [lb_av] Radha Llamas [facility] height E&M 71 [in_i] Radha Llamas [facility] blood pressure, diastolic 88 mm[Hg] Be tsy Suero blood pressure, systolic 142 mm[Hg] Bet sy Suero Body Mass Index (Ratio) 32.35 kg/m2 [facility] ta Demecs RN blood pressure, cuff size regular duane Demecs RN blood pressure, diastolic 90 mm[Hg] duane Demecs RN blood pressure, systolic 140 mm[Hg] [facility] sta Demecs RN oxygen saturation, oximetry 99 % Perham Demecs RN respiratory rate E&M 16 /min Perham Demecs RN pulse rate 89 /min Rama Demecs R N weight E&M 232 [lb_av] Rama Demecs R N Body Mass Index (Ratio) 32.07 kg/m2 Trey Simon MD blood pressure, resting Yes Iesh a [place] blood pressure, diastolic 90 mm[Hg] Ie giovanna [place] blood pressure, systolic 120 mm[Hg] Ies scar [place] oxygen saturation, oximetry 98 % Leigha [place] respiratory rate E&M 16 /min Leigha W fabián pulse rate 110 /min Leigha [place] weight E&M 230 [lb_av] Leigha [place] height E&M 71 [in_i] Leihga [place] ALLERGIES Allergy Name Onset Date [...] Estab. 8 platelet count 326 X10E3/UL [facility] [id number] 2589/06/1 8 red blood cell distribution width 13.1 [...] 3.5-5.2 8 sodium, serum 140 mmol/L [facility] [id number] 5063/06/1 8 urea nitrogen/creatinine ratio, serum 12 [facility] [...] [facility] 1 platelet count 316 X10E3/UL [facility] [phone]/02/0 1 red blood cell distribution width 14.2 [...] 3.5-5.2 1 sodium, serum 142 mmol/L [facility] [phone]/02/0 1 urea nitrogen/creatinine ratio, serum 8 [facility] [...] a day 04/16 - 02/09 Radha Gaspar hydrochlorothiaz kirit 25 mg tablet completed [...] 04/15 Christina Solano NP VITAMIN D (ERGOCALCIFEROL) 06018 UNIT ORAL CAPSULE completed one capsule by mouth weekly 04/15 - 04/15 Galina Christiansen VITAMIN B-12 1000 MCG ORAL TABLET completed One tablet daily 04/09 - 04/15 Christina Solano NP TYLENOL WITH CODEINE #3 TABLET completed Take 1 tablet daily as needed 04/09 - 04/15 Christina Solano NP TOPAMAX 100 MG ORAL TABLET completed one a day 06/19 - 05/02 Amilcar Smion MD ADIPEX-P 37.5 MG ORAL CAPSULE completed [...] 02/13 - 06/19 Galina Christiansen VITAMIN D3 88455 UNIT ORAL TABLET completed TAKE ONE TAB BY MOUTH WEEKLY 02/13 - 06/19 Galina Kuldip CRESTOR 20 MG ORAL TABLET completed Take One Once a Day. 12/08 - 12/15 Rama Wood RN CRESTOR 10 MG ORAL TABLET completed ONE TAB. DAILY 12/03 - 12/08 Chirag Monte RN let him know this replaces the fenofibate VITAMIN D3 52476 UNIT ORAL CAPSULE completed one a week 12/03 - 02/13 Radha Gaspar let him know his d is low and he is a prediabetic CYANOCOBALAMIN 1000 MCG/ML INJECTION SOLUTION completed [facility] 12/03 - 06/19 Galina Christiansen LINZESS 290 [...] Suero social history E&M S moking History: Rhoda [...] green party ID [employer]na Choice Pos II [employer] insurance [employer] [id number] ADVANCE DIRECTIVES Name Date POWER OF MAIL SORTER TREATMENT PLAN Date Name Performer Cardiology Yevgeniy [...] 1 tablet by mouth once a day [id number]||2025-03-11 11:54:00|XR_ITS|GABRIEL|Imaging|[id number]|"AP view of the pelvis and AP and lateral views of the left hip Clinical history: Pain Findings: No acute fracture or dislocation is seen. Osseous alignment is anatomic. Bilateral hip and SI joint spaces are preserved. Lumbosacral spinal fixation hardware noted. Soft tissues are unremarka ble. Impression: No significant abnormality is seen. Reviewed, dictated and finalized at location M. Impression: No significant abnormality is seen. "
== END 2025-03-11 12:08 | disposition home or self-care (01) ==
PROVIDERS: Emergency Provider Registered Nurse; PCP Family Medicine
DX: M54.50 Low back pain, unspecified (principal); M25.552 Pain in left hip; N18.30 Chronic kidney disease, stage 3 unspecified; E66.9 Obesity, unspecified; Z68.34 Body mass index [BMI] 34.0-34.9, adult; M19.90 Unspecified osteoarthritis, unspecified site
CPT/HCPCS: 73502; 99213; G0463

== ENCOUNTER 2025-05-27 16:00 | Outpatient (CLI) | payer OTHER, SELFPAY ==
--- NOTE | ~2025-05-27 | US_ITS ---
US soft tissue head and neck 05/27/2025 16:30 Indication: Cervicalgia. Procedure: Soft tissue ultrasound of the right neck in the area of patient concern Comparison: No prior studies for comparison. Findings: Normal heterogeneous soft tissues are identified without discrete solid or cystic mass in t he area of concern. There is a small benign cyst of the left thyroid gland. Impression: 1: Unremarkable neck soft tissue ultrasound without discrete mass. Reviewed, dictated and finalized at location A. Impression: 1: Unremarkable neck soft tissue ultrasound without discrete mass.
--- OUTSIDE RECORDS SUMMARY | 2025-05-27 16:05 | XMS_ITS | Encounter Summary ---
Author Organization [facility] Address [address] [place] [address] Phone Care Team Providers Care Chute Puller Name Role Phone Saeed Carvalho MD Primary Care Provider Freeman Howard MD Unavailable [phone] Huey Morales MD Unavailable Encounter Details Date [...] on file Legal Sex Male 4:19 AM MEDICARE SALES EXECUTIVE Gender Identity Male 04/04/2023 4:30 PM CDT [...] COVID: Suspected 12/02/2024 12/02/2024 12/02/2024 6:02 PM MEDICARE SALES EXECUTIVE documented as of this encounter Care Teams Chute Puller Relationship Specialty Start Date End Date Saeed Carvalho MD [address] [place] [address] PCP - General Family Medicine 12/08/21 Freeman Howard MD 3 [facility] [address] [place] [address] Pulmonary Disease 01/23/23 Huey Morales MD [facility] [address] [facility] [phone] [place] [address] Consulting Physician Pulmonary Disease 12/02/24 documented as of this encounter
--- OUTSIDE RECORDS SUMMARY | 2025-05-27 16:05 | XMS_ITS | Encounter Summary ---
Author Organization [facility] Address [address] [place] [address] Care Team Providers Care Real Estate Operations Manager Name Role Phone Saeed Carvalho MD Primary Care Provider [phone] Berny Borja MD Unavailable [phone] Encounter Details Date Type Department Care Team [...] PM CDT Legal Sex Male 5:49 PM STAFF CLIMATE SCIENTIST Gender Identity Male 07/21/2021 2:33 PM CDT [...] on filedocumented in this encounter Care Teams Real Estate Operations Manager Relationship Specialty Start Date End Date Saeed Carvalho MD [address] [address] [address] [place] [address] PCP - General Family Medicine 11/15/17 [place] [address] [facility] [address] [place] [address] Physical Medicine and Rehabilitation 01/24/22 documented as of this encounter
--- OUTSIDE RECORDS SUMMARY | 2025-05-27 16:05 | XMS_ITS | Encounter Summary ---
Author Organization [facility] Health Address [address] [place] [address] Care Team Providers Care Stock Cutter Name Role Phone Saeed Carvalho MD Primary Care Provider Berny Borja MD Unavailable [phone] Encounter Details Date Type Department Care Team [...] PM CDT Legal Sex Male 5:49 PM PLANT TECH Gender Identity Male 07/21/2021 2:33 PM CDT Sexual Orientation Garcia 07/21/2021 2: 33 PM CDT documented as of this encounter Plan of Treatment Not on file documented as of this encounter Visit Diagnoses Not on filedocumented in this encounter Care Teams Stock Cutter Relationship Specialty Start Date End Date Saeed Carvalho MD [address] [facility] [address] [place] [address] PCP - General Family Medicine 11/15/17 [place] [address] [place] [address] Physical Medicine and Rehabilitation 01/24/22 documented as of this encounter
--- OUTSIDE RECORDS SUMMARY | 2025-05-27 16:05 | XMS_ITS | Clinical Summary ---
Author Organization [facility] Address [address] [facility] [place] [address] Care Team Providers Care Central Supply Technician Supervisor Name Role Phone Saeed Carvalho MD Primary Care Provider [phone] Berny Borja MD Unavailable [phone] Source Comments [facility],non-owned Affiliates and Associated Physician Practices is amultiple site organization consisting of ambulatory clinics and hospital sitesin [place], [place], [place]. This disclosure is being madepursuant to the Care Everywhere program and may not contain all information available regarding this patient. Last updated 18.[facility] Allergies Active Allergy Reactions Criticality Noted Date [...] Immunizations Immunization Administration Dates Next Due Tribela Fannect primary monoval ent 12+ yr 0.3mL Purple cap 12/22/2020,11/24/2020 INFLUENZA A [id number] VACCINE 01/05/2010 INFLUENZA VACCINE 08/29/2015 Zoster Hzv [...] PM CDT Legal Sex Male 5:49 PM DIRECTOR NICU Gender Identity Male 07/21/2021 2:33 PM CDT Sexual Orientation Garcia 07/21/2021 2: 33 PM CDT Last Filed Vital Signs Vital Sign Reading Time Taken Comments Blood Pressure 138/90 09/04/2022 2:37 PM DIRECTOR NICU Pulse 85 09/04/2022 2:37 PM DIRECTOR NICU Temperature 36.4 C (97.5 F) 09/04/2022 2:37 PM DIRECTOR NICU Respiratory Rate 20 08/25/2022 11:03 AM CDT Oxygen Saturation 94% 09/04/2022 2:37 PM DIRECTOR NICU Inhaled Oxygen Concentration 21% 08/22/2022 7 :10 PM CDT Weight 108.4 kg (239 lb) 09/04/2022 2:37 PM DIRECTOR NICU Height 180.3 cm (5' 11) 09/04/2022 2:37 PM DIRECTOR NICU Body Mass Index 33.33 09/04/2022 2:37 PM DIRECTOR NICU Plan of Treatment Health Maintenance Due Date [...] 12/22/2020, 11/24/2020 DEPRESSION SCREENING 10/29/2024 INFLUENZA VACCINE (#1) 2025 0, 08/05/2019, 08/02/2018, Additional history exists SCREENING FOR DIABETES 08/24/2025 2, 08/23/2022, 08/23/2022, [...] this topic Medical Devices Implanted Type Area Magneto Repairer Device Identifier Shelf Expiration Date Model / Serial / Lot Graft Bone Grftn Dbm 5x2.5cm - [id number] Implanted:Qty : 1 on 12/01/2019 by Huey Chavarria MD at [facility] Spine Lumbar [employer] Inc 07/10/2022 [id number] / [id number] / Screw 7.5mm 50mm 2 Ld Thrd Frm Ma Clr Cd Implanted:Qty : 4 on 12/01/2019 by Huey Chavarria MD at [facility] Spine Lumbar Medtronic Inc [id number] / / Spcr Spnl [id number] Cpstn Peek-Optm Slf Implanted:Qty : 1 on 12/01/2019 by Huey Chavarria MD at [facility] Spine Medtronic Sofamor Danek Inc 07/15/2027 [id number] / / [id number] Reagan Spnl 35mm 4.75mm Cd Hzn Solera Crv Implanted:Qty : 1 on 12/01/2019 by Huey Chavarria MD at [facility] Spine Medtronic Inc [id number] / / Screw Set Ti 4.75mm Spne Nonster Implanted:Qty : 4 on 12/01/2019 by Huey Chavarria MD at [facility] Spine Medtronic Sofamor Danek Inc [id number] / / Reagan Spnl 30mm 4.75mm Cd Hzn Solera Crv Implanted:Qty : 1 on 12/01/2019 by Huey Chavarria MD at [facility] Spine Medtronic Inc [id number] / / Screw 3.6mm 14mm Fx Ang Slf Drl Spne Implanted:Qty : 1 on 04/19/2020 by Huey Chavarria MD at [facility] Spine Cervical Glob[employer] Medical [id number] / / Graft Bone Alfs Dbm 5ml Gel Implanted:Qty : 1 on 04/19/2020 by Huey Chavarria MD at [facility] [employer]ource 06/14/2022 [id number] / / [id number] Spacer Implanted:Qty : 1 on 04/19/2020 by Huey Chavarria MD at [facility] Spine Cervical [id number] / / Screw 3.6mm 14mm Std Va Slf Drl Spne Implanted:Qty : 1 on 04/19/2020 by Huey Chavarria MD at [facility] Spine Cervical [employer] 184.154 / / Graft Bone Alfs Dbm 1ml Gel Implanted:Qty : 1 on 04/25/2021 by Huey Chavarria MD at [facility] Spine Cervical [employer] 05/08/2023 [id number] / / [id number] Spcr Spnl 16x8mm Coalition 7d Lrdtc 14mm Implanted:Qty : 1 on 04/25/2021 by Huey Chavarria MD at [facility] Spine Cervical [employer] 384.308 / / Screw 3.6mm 14mm Fx Ang Slf Drl Spne Implanted:Qty : 1 on 04/25/2021 by Huey Chavarria MD at [facility] Spine Cervical [facility] Medical 184.174 / / Screw 3.6mm 16mm Slfdrl Va Spne Bone Implanted:Qty : 1 on 04/25/2021 by Huey Chavarria MD at [facility] Spine Cervical [employer] 184.156 / / Sys Impl 1.9mm Fibertak Biceps [place] Implanted:Qty : 1 on 06/16/2021 by Katty Toussaint MD at [facility] Right: Shoulder Arthrex Inc 03/28/2026 [id number] / / [id number] Procedures Procedure Name Priority Date/Time Associated Diagnosis Comments BASIC METABOLIC PANEL (CALCIUM TOTAL) Timed 08/24/2022 11:58 PM CDT Diaphragm paralysis from Last 3 Months or Most Recently Relevant to Health Maintenance Results * (ABNORMAL) BASIC METABOLIC PANEL (CALCIUM TOTAL) (08/24/2022 11:58 PM CDT) BUN 11 7 - 26 mg/dL 08/25/2022 12:36 AM [facility] Creatinine 1.32(H) 0.71 - 1.16 mg/dL 08/25/2022 12:36 AM [facility] Sodium 138 136 - 145 mmol/L 08/25/2022 12:36 AM [facility] Potassium 4.0 3.5 - 4.5 mmol/L 08/25/2022 12:36 AM [facility] Chloride 103 98 - 107 mmol/L 08/25/2022 12:36 AM [facility] CO2 26 22 - 29 mmol/L 08/25/2022 12:36 AM [facility] Glucose 115 70 - 115 mg/dL 08/25/2022 12:36 AM [facility] Calcium 9.0 8.4 - 10.2 mg/dL 08/25/2022 12:36 AM [facility] Anion Gap 13 8 - 18 08/25/2022 12:36 AM [facility] BUN/Creatinine Ratio 8 7 - 23 08/25/2022 12:36 AM [facility] Osmolality Calculated 286 270 - 300 mOsm/kg 08/25/2022 12:36 AM [facility] eGFR by CKD-EPI 65(L) >=90 mL/min/1.7 3 m2 08/25/2022 12:36 AM [facility] Blood BLOOD SPECIMEN / Unknown Lab Venipuncture / Unknown 08/24/2022 11:58 PM CDT 08/25/2022 12:09 AM [facility] Jerson Villeda MD LAB - CHEMISTRY ORDER BEATRIZ Final Result [facility] [address] [place] [address], [place] [phone] from Last 3 Months or Most Recently Relevant to Health Maintenance Insurance ANTHEM SELF PAY NO INSURANCE Member Subscriber Plan / Payer (Ef fective for All Dates) Name:Sunny Valero Member ID:Not on file Relation to Subscriber:Not on file Name:SUNNY VALERO Subscriber ID:Not on file (Home) Address: [address] [place] [address] Payer ID:Not on file Group ID:Not on file Type:Self Pay Address: [place], [place] [employer] ANTHEM Advance Directives * Full Code (Latest [...] 7:36 PM 12/02/2019 6:05 PM Care Teams Central Supply Technician Supervisor Relationship Specialty Start Date End Date Saeed Carvalho MD [address] [address] [address] [place] [address] PCP - General Family Medicine 11/15/17 [place] [address] [facility] [address] [place] [address] Physical Medicine and Rehabilitation 01/24/22
--- OUTSIDE RECORDS SUMMARY | 2025-05-27 16:05 | XMS_ITS | Encounter Summary ---
Author Organization [facility] Health Address [address] [place] [address] Care Team Providers Care Credit Officer Name Role Phone Saeed Carvalho MD Primary Care Provider [phone] Berny Borja MD Unavailable [phone] Encounter Details Date Type Department Care Team [...] PM CDT Legal Sex Male 5:49 PM SCIENTIST Gender Identity Male 07/21/2021 2:33 PM [...] on filedocumented in this encounter Care Teams Credit Officer Relationship Specialty Start Date End Date Saeed Carvalho MD [address] [address] [address] [place] [address] PCP - General Family Medicine 11/15/17 [place] [address] [facility] [address] [place] [address] Physical Medicine and Rehabilitation 01/24/22 documented as of this encounter
--- OUTSIDE RECORDS SUMMARY | 2025-05-27 16:05 | XMS_ITS | Clinical Summary ---
Author Organization [facility] Address [address] [place] [address] Care Team Providers Care Floor Winder Name Role Phone Saeed Carvalho MD Primary Care Provider Freeman Howard MD Unavailable [phone] Huey Morales MD Unavailable [phone] Allergies Active Allergy Reactions Criticality Noted Date Comments Buspirone Angioedema High 06/05/2013 Ciprofloxacin Anaphylaxis High 09/08/2019 Gemfibrozil Other (See comments) High 06/19/2018 Iron Anaphylaxis,Swelling High 11/19/2017 IV iron infusion caused throat to swell Methocarbamol Unknown,Hives Medium 09/10/2003 Buhforo-Ogl-Lge Reductase Inhibitors Other (See comments) Low 04/16/2014 [...] 09/05/2024 Assessment & Plan (09/05/2024 9:47 AM TRAFFIC ANALYST): Patient was seen in the ER [...] 09/05/2024 Assessment & Plan (09/05/2024 9:47 AM TRAFFIC ANALYST): Patient was having dysphagia, had an EGD a few days ago [facility]. No records available for review. -Obtain prior EGD records Family history of colon cancer 09/05/2024 Assessment & Plan (09/05/2024 9:48 AM TRAFFIC ANALYST): Maternal grandmother had colon cancer. Mother had polyps. Per patient last colonoscopy 5 years ago was normal. Constipation 09/05/2024 Assessment & Plan (09/05/2024 9:48 AM TRAFFIC ANALYST): Mild, chronic, intermittent. -High-fiber diet -MiraLax OTC p.r.n. 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 Cervicalgia 04/25/2021 Dysthymic disorder 04/19/2021 Gastroesophageal reflux disease 04/19/2021 Assessment & Plan (09/05/2024 9:47 AM TRAFFIC ANALYST): Chronic GERD, well-controlled with omeprazole 20 [...] on file Legal Sex Male 4:19 AM TRAFFIC ANALYST Gender Identity Male 04/04/2023 4:30 PM CDT Sexual Orientation Garcia 04/04/2023 4: 30 PM CDT Obstetrics History Last Filed Vital Signs Vital Sign Reading Time Taken Comments Blood Pressure 134/90 12/02/2024 10:03 AM TRAFFIC ANALYST Pulse 98 12/02/2024 10:03 AM TRAFFIC ANALYST Temperature 35.6 C (96.1 F) 12/02/2024 10:03 AM TRAFFIC ANALYST Respiratory Rate 18 12/02/2024 10:03 AM TRAFFIC ANALYST Oxygen Saturation 98% 12/02/2024 10:03 AM TRAFFIC ANALYST Inhaled Oxygen Concentration - - Weight 112 kg (247 lb) 12/02/2024 10:03 AM TRAFFIC ANALYST Height 177.8 cm (5' 10) 12/02/2024 10:03 AM TRAFFIC ANALYST Body Mass Index 35.44 12/02/2024 10:03 AM TRAFFIC ANALYST Plan of Treatment Health Maintenance Due Date Last Done Comments Colon Cancer Screening-Colonoscopy 1970 Hepatitis C Screening 1970 Prostate Cancer Screening-PSA 1970 Hepatitis B Screening 01/15/1988 Regular Well Visit/Exam 18-64 01/15/1988 Depression Screening 05/14/2024 05/14/2023, 05/14/20 23 Influenza Vaccine (#1) 2025 4, 08/06/2023, 08/08/2022, Additional history exists DTaP/Tdap/Td Vaccine (2 - Td or Tdap) 04/15/2027 04/15/2017, 07/11/2004 Zoster Vaccine Completed 10/25/2020, 07/08/2020 Covid-19 Vaccine Completed 09/18/2024, , 08/14/2022, Additional history exists Pneumococcal vaccine <65 Aged Out No longer eligible based on patient's age to complete this topic Insurance ANTH PREFERRED MAIL [employer]ERS [facility] HMO [facility] HMO Care Teams Floor Winder Relationship Specialty Start Date End Date Saeed Carvalho MD [address] [place] [address] PCP - General Family Medicine 12/08/21 Freeman Howard MD 3 [facility] [address] [place] [address] Pulmonary Disease 01/23/23 Huey Morales MD [address] [facility] [phone] [place] [address] Consulting Physician Pulmonary Disease 12/02/24
--- OUTSIDE RECORDS SUMMARY | 2025-05-27 16:05 | XMS_ITS | Encounter Summary ---
Author Organization [facility] Health Address [address] [place] [address] Care Team Providers Care Surveillance Investigator Name Role Phone Saeed Carvalho MD Primary Care Provider [phone] Berny Borja MD Unavailable [phone] Encounter Details Date Type Department Care Team [...] PM CDT Legal Sex Male 5:49 PM COSMETIC CONSULTANT Gender Identity Male 07/21/2021 2:33 PM CDT [...] on filedocumented in this encounter Care Teams Surveillance Investigator Relationship Specialty Start Date End Date Saeed Carvalho MD [address] [address] [address] [place] [address] PCP - General Family Medicine 11/15/17 [place] [address] [facility] [address] [place] [address] Physical Medicine and Rehabilitation 01/24/22 documented as of this encounter
--- OUTSIDE RECORDS SUMMARY | 2025-05-27 16:05 | XMS_ITS | Referral Summary ---
Author Organization [facility] Address [address] [place] [address] Care Team Providers Care Seismic Survey Assistant Name Role Phone Saeed Carvalho MD Primary Care Provider Freeman Howard MD Unavailable [phone] Huey Morales MD Unavailable [phone] Allergies Active Allergy Reactions Criticality Noted Date Comments Buspirone Angioedema High 06/05/2013 Ciprofloxacin Anaphylaxis High 09/08/2019 Gemfibrozil Other (See comments) High 06/19/2018 Iron Anaphylaxis,Swelling High 11/19/2017 IV iron infusion caused throat to swell Methocarbamol Unknown,Hives Medium 09/10/2003 Itjclgh-Fsc-Whw Reductase Inhibitors Other (See comments) Low 04/16/2014 [...] 09/05/2024 Assessment & Plan (09/05/2024 9:47 AM CAR REPAIRER HELPER): Patient was seen in the ER February [...] 09/05/2024 Assessment & Plan (09/05/2024 9:47 AM CAR REPAIRER HELPER): Patient was having dysphagia, had an EGD a few days ago [facility]. No records available for review. -Obtain prior EGD records Family history of colon cancer 09/05/2024 Assessment & Plan (09/05/2024 9:48 AM CAR REPAIRER HELPER): Maternal grandmother had colon cancer. Mother had polyps. Per patient last colonoscopy 5 years ago was normal. Constipation 09/05/2024 Assessment & Plan (09/05/2024 9:48 AM CAR REPAIRER HELPER): Mild, chronic, intermittent. -High-fiber diet -MiraLax OTC p.r.n. 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 Cervicalgia 04/25/2021 Dysthymic disorder 04/19/2021 Gastroesophageal reflux disease 04/19/2021 Assessment & Plan (09/05/2024 9:47 AM CAR REPAIRER HELPER): Chronic GERD, well-controlled with omeprazole 20 mg [...] on file Legal Sex Male 4:19 AM CAR REPAIRER HELPER Gender Identity Male 04/04/2023 4:30 PM CDT Sexual Orientation Garcia 04/04/2023 4: 30 PM CDT Last Filed Vital Signs Vital Sign Reading Time Taken Comments Blood Pressure 134/90 12/02/2024 10:03 AM CAR REPAIRER HELPER Pulse 98 12/02/2024 10:03 AM CAR REPAIRER HELPER Temperature 35.6 C (96.1 F) 12/02/2024 10:03 AM CAR REPAIRER HELPER Respiratory Rate 18 12/02/2024 10:03 AM CAR REPAIRER HELPER Oxygen Saturation 98% 12/02/2024 10:03 AM CAR REPAIRER HELPER Inhaled Oxygen Concentration - - Weight 112 kg (247 lb) 12/02/2024 10:03 AM CAR REPAIRER HELPER Height 177.8 cm (5' 10) 12/02/2024 10:03 AM CAR REPAIRER HELPER Body Mass Index 35.44 12/02/2024 10:03 AM CAR REPAIRER HELPER Plan of Treatment Not on file [facility] [address] [place] [address] [facility] HMO Care Teams Seismic Survey Assistant Relationship Specialty Start Date End Date Saeed Carvalho MD [address] [facility] [address] [place] [address] PCP - General Family Medicine 12/08/21 Freeman Howard MD 3 [facility] [address] [place] [address] Pulmonary Disease 01/23/23 Huey Morales MD [facility] [address] [facility] [phone] [place] [address] Consulting Physician Pulmonary Disease 12/02/24
--- OUTSIDE RECORDS SUMMARY | 2025-05-27 16:06 | XMS_ITS | Clinical Summary ---
Author Organization [facility] Address [address] [place] [address] Phone Care Team Providers Care Equipment Services Associate Name Role Phone Saeed Carvalho MD Primary Care Provider [phone] Allergies Active Allergy Reactions Criticality Noted Date [...] Comments Blood Pressure 157/104 09/22/2019 11:51 AM MANAGED SERVICES CONSULTANT Pulse 82 09/22/2019 11:51 AM MANAGED SERVICES CONSULTANT Temperature 36.4 C (97.6 F) 07/23/2019 2:27 PM CDT Respiratory Rate 18 07/23/2019 2:27 PM CDT Oxygen Saturation 100% 07/23/2019 2:27 PM CDT Inhaled Oxygen Concentration - - Weight 104.3 kg (230 lb) 09/22/2019 11:51 AM MANAGED SERVICES CONSULTANT Height 180.3 cm (5' 11) 09/22/2019 11:51 AM MANAGED SERVICES CONSULTANT Body Mass Index 32.08 09/22/2019 11:51 AM MANAGED SERVICES CONSULTANT Plan of Treatment Health Maintenance Due Date Last Done Comments DTAP/TDAP/TD VACCINES (1 - Tdap) 1989 HEPATITIS B VACCINES (1 of 3 - 19+ 3-dose series) 12/27 COLORECTAL SCREENING 2015 Colorectal Cancer Screening 2015 FIT-DNA Q 3 years 2015 FIT/FOBT Q 1 year 2015 Flex Sig/CT Colonography Q 5 years 2015 ZOSTER VACCINE (1 of 2) 01/15/2020 INFLUENZA VACCINE (#1) [address] [facility] BLUE PREFERRED RX [facility] Commercial Advance Directives For more information, please contact: [phone] * Full Code (Latest Code Status on File) Date Activated Date Inactivated Comments 07/23/2019 1:22 PM 07/23/2019 4:43 PM * Full Code Date Activated Date Inactivated Comments 07/23/2019 1:20 PM 07/23/2019 1:22 PM * Full Code Date Activated Date Inactivated Comments 07/23/2019 11:15 AM 07/23/2019 1:20 PM Care Teams Equipment Services Associate Relationship Specialty Start Date End Date Saeed Carvalho MD [address] [facility] [address] [place] [address] PCP - General Family Practice 06/25/19
== END 2025-05-27 16:01 | disposition home or self-care (01) ==
PROVIDERS: PCP Family Medicine
DX: M54.2 Cervicalgia (principal); R09.A2 Foreign body sensation, throat
CPT/HCPCS: 76536

== ENCOUNTER 2025-09-14 09:37 | Outpatient (CLI) | payer OTHER, SELFPAY ==
[2025-09-14 10:40] LABS: Cholesterol 156 mg/dL (0-200); HDL Direct 30 mg/dL; Triglycerides 164 mg/dL (<150)
== END 2025-09-14 09:38 | disposition home or self-care (01) ==
PROVIDERS: PCP Family Medicine; Visit Provider Internal Medicine Cardiovascular Disease
DX: E78.3 Hyperchylomicronemia (principal); I10 Essential (primary) hypertension; R06.09 Other forms of dyspnea; E66.9 Obesity, unspecified; G47.33 Obstructive sleep apnea (adult) (pediatric); E78.1 Pure hyperglyceridemia; R35.1 Nocturia; G47.00 Insomnia, unspecified; I51.9 Heart disease, unspecified; R73.09 Other abnormal glucose; E61.1 Iron deficiency; E53.8 Deficiency of other specified B group vitamins; E55.9 Vitamin D deficiency, unspecified; Z13.6 Encounter for screening for cardiovascular disorders; R45.1 Restlessness and agitation; K21.9 Gastro-esophageal reflux disease without esophagitis; R56.1 Post traumatic seizures; E78.5 Hyperlipidemia, unspecified
CPT/HCPCS: 36415; 80061; 82172